=== PATIENT | female | born 1945 | race Caucasian/White ===

== ENCOUNTER 2016-10-17 18:28 | Inpatient (IN) ==
[2016-10-17] MEDS ORDERED: 0.9 % Sodium Chloride 1,000 ML IVC ONE (19:07)
--- NOTE | 2016-10-17 19:12 | Emergency Department Note ---
Disposition Clinical Impression: Hypoxia Pneumonia Qualifiers: Pneumonia type: due to unspecified organism Laterality: right Lung location: lower lobe of lung Qualified Code(s): J18.9 - Pneumonia, unspecified organism Cancer of right lung Qualifiers: Lung location: hilum of lung Qualified Code(s): C34.01 - Malignant neoplasm of right main bronchus Disposition: Admitted As Inpatient Condition: Good Referrals: Melida Santos CNP [Primary Care Provider] - Forms: ED Satisfaction Letter URI/Sore Throat HPI - General Chief Complaint: ED Nausea/Vomiting/Diarrhea Stated Complaint: nausea/ fever Time Seen by Provider: 10/17/16 18:30 Source: patient, EMS Mode of arrival: EMS Limitations: no limitations Nursing Notes Reviewed: Yes Vital Signs Reviewed: Yes - History of Present Illness HPI Narrative: 71-year-old female presents to the emergency department for evaluation of fever and nausea. Patient states she developed head congestion and cough last night and is developed fever this morning. Today she has been nauseated throughout the day. She has not been eating or drinking well. She has some mild discomfort in her lower chest area. She has a known history of coronary artery disease but states this does not feel like a heart pain. She has been coughing but has not expectorated sputum and instead has swallowed it. She states she feels short of breath. She denies any diarrhea. He denies any abdominal pain. - Related Data Home Medications Medication Instructions Recorded Confirmed BuPROPion XL (24 HR) [Wellbutrin 150 mg PO DAILY 06/14/15 08/25/16 Xl] Cholecalciferol (Vitamin D3) 50,000 unit PO QWEEK 06/14/15 08/25/16 [Vitamin D3] Fenofibrate [Tricor] 48 mg PO HS 06/14/15 08/25/16 Fluticasone Propionate [Flovent 12 gm IH BID PRN 06/14/15 08/25/16 Hfa] Ranolazine [Ranexa] 1,000 mg PO BID 06/14/15 08/25/16 Trazodone HCl [Oleptro ER] 100 mg PO BID 06/14/15 08/25/16 Zolpidem Tartrate [Ambien Cr] 12.5 mg PO HS PRN 06/14/15 08/25/16 Aspirin Enteric Coated [Aspirin EC] 81 mg PO DAILY 08/01/15 08/25/16 Alprazolam [Xanax] 1 mg PO QID PRN 03/21/16 08/25/16 Doxepin [Sinequan] 50 mg PO HS 03/21/16 08/25/16 Insulin Glargine [Lantus] 90 unit SQ HS 03/21/16 08/25/16 Insulin LISPRO [HumaLOG] 0 units SQ TIDWM 03/21/16 08/25/16 Montelukast [Singulair] 10 mg PO HS 03/21/16 08/25/16 Ondansetron ODT [Zofran ODT] 4 mg SL Q8HR PRN 03/21/16 08/25/16 Polyethylene Glycol 3350 [MiraLAX] 17 gm PO DAILY PRN 03/21/16 08/25/16 Ranitidine Oral Soln [Zantac] 150 mg PO DAILY 03/21/16 08/25/16 Tizanidine HCl 4 mg PO HS PRN 03/21/16 08/25/16 TraMADol [Ultram] 50 mg PO QID PRN 03/21/16 08/25/16 Zolpidem Tartrate 12.5 mg SL HS 03/21/16 08/25/16 Previous Rx's Medication Instructions Recorded Acetaminophen [Tylenol] 650 mg PO Q6HR PRN #0 tablet 01/05/16 Folic Acid 1 tab PO DAILY #30 tablet 02/05/16 Clopidogrel [Plavix] 75 mg PO DAILY tablet 03/21/16 GuaiFENesin ER [Mucinex] 1,200 mg PO BID PRN #30 tbbp.12hr 03/21/16 Oxycodone HCl/Acetaminophen 1 each PO Q8H PRN #60 tablet 08/25/16 [Percocet 10-325 mg Tablet] Allergies Allergy/AdvReac Type Severity Reaction Status Date / Time Iodinated Contrast Media - Allergy Rash Verified 08/09/16 00:58 Oral and iron Allergy Hives Verified 08/09/16 00:58 [place] Allergy Nausea Verified 08/09/16 00:58 Sulfa (Sulfonamide Allergy Hives Verified 08/09/16 00:58 Antibiotics) Review of Systems: Constitutional: see history of present illness HENT: Positive for congestion Eyes: [Negative for discharge.] Respiratory: Positive for productive cough and shortness of breath Cardiovascular: The history of present illness Gastrointestinal: Positive for nausea and negative for vomiting, diarrhea, or abdominal pain Endocrine: [Negative for excessive thirst,urination] Genitourinary: [Negative for dysuria and frequency.] Musculoskeletal: [Negative for myalgias and arthralgias.] Skin: [Negative for rash.] Neurological: [Negative for dizziness, localized weakness and headaches.] Psychiatric/Behavioral: [Negative for nervous/anxious.] All other systems reviewed and are negative. URI PMH - Past Medical History Medical history: Reports: asthma, cancer, CHF, coronary artery disease, diabetes , GERD, hyperlipidemia, hypertension, myocardial infarction, osteoporosis, renal disease, syncope, other Surgical history: Reports: angioplasty/stent, appendectomy, cancer surgery, cholecystectomy, hysterectomy, orthopedic, other Psychiatric history: Reports: anxiety, bipolar, depression [employer]OR history: Reports: no [employer]OR history - Social History Smoking Status: Former smoker Alcohol use: Reports: none Drug use: Reports: none Physical Exam Constitutional: Patient is alert, obese, [well nourished, well developed], and cooperative. . The patient appears , nontoxic, and appears mildly ill. There is mild pain. HENT: Head: Normocephalic and atraumatic. Right Ear: External ear normal. Left Ear: External ear normal. Nose: Nose normal. Mouth/Throat: Oropharynx is clear and mucous membranes show mild dehydration Eyes: Conjunctivae and EOM are normal. Pupils are equal, round, and reactive to light. Right eye exhibits no discharge. Left eye exhibits no discharge. Neck: Trachea is midline, normal range of motion and phonation normal. Neck supple. Cardiovascular: Regular rhythm, S1 normal, S2 normal, normal heart sounds and intact distal pulses. Exam reveals no gallop and no friction rub. No murmur heard. Pulmonary/Chest: Effort [normal] No stridor. [No] tachypnea. [No] respiratory distress. There are decreased breath sounds. There are a few rhonchi but no wheezes or rales Abdominal: Soft. Bowel sounds are normal. There exhibits no distension and no mass. There is no hepatosplenomegaly. There is mild epigastric tenderness, [no] CVA tenderness. There is no rigidity, no rebound, no guarding. Musculoskeletal: Normal range of motion of uninvolved extremities. There exhibits [no] edema. [No tenderness palpable.] [ ] Neurological: Patient is alert. Patient displays no atrophy and no tremor. No cranial nerve deficit and exhibits normal muscle tone. Coordination normal. Skin: Skin is warm and dry. No rash noted. No erythema. Psychiatric: Patient has a normal mood,affect, behavior, judgment, and thought content. Course Course Narrative: Patient's laboratory studies show evidence of a mild infection. Chest x-ray shows evidence of right lower lobe pneumonia. Patient is requiring some oxygen to keep her pulse ox above 90%. Patient has a mild right lower lobe pneumonia and I feel we can treat at the [place]. I have wrote initial orders at the convenience of the hospitalist and notify the hospitalist Vital Signs Temperature 100.1 F H 10/17/16 18:30 Pulse Rate 133 10/17/16 18:30 Respiratory Rate 20 10/17/16 18:30 Blood Pressure 113/57 10/17/16 18:30 O2 Sat by Pulse Oximetry 90 L 10/17/16 18:30 Temperature 100.1 F H 10/17/16 18:30 Pulse Rate 105 10/17/16 21:23 Respiratory Rate 14 10/17/16 21:23 Blood Pressure 102/32 10/17/16 21:23 O2 Sat by Pulse Oximetry 98 10/17/16 21:23 Oxygen Delivery Oxygen Delivery Nasal Cannula Upper Respiratory Infection - Lab Data Lab results reviewed: Yes I reviewed the patient's lab results. Result diagrams: 10/17/16 19:55 10/17/16 19:55 Lab Results 10/17/16 10/17/16 10/17/16 Range/Units 19:30 19:55 19:55 WBC 15.0 H (4.3-11.1) K/mcL RBC 4.83 (3.82-4.97) M/mcL Hgb 13.6 (11.5-15.4) g/dL Hct 41.5 (35.3-44.9) % MCV 85.9 (83.0-100.0) fL MCH 28.2 (28.0-33.3) pg MCHC 32.8 (31.6-35.5) g/dL RDW 13.2 (11.5-14.5) % Plt Count 253 (140-400) K/mcL MPV 10.1 (9.4-12.4) fL Immature Gran % 0.3 (0-4) % Seg Neutrophils % 85.2 % Lymphocytes % 8.8 % Monocytes % 5.2 % Eosinophils % 0.4 % Basophils % 0.1 % Neutrophils # 12.8 H (1.6-8.9) K/mcL Lymphocytes # 1.3 (0.6-4.6) K/mcL Monocytes # 0.8 (0.0-1.3) K/mcL Eosinophils # 0.1 (0.0-0.6) K/mcL Basophils # 0.0 (0.0-0.2) K/mcL VBG Lactic Acid (0.5-2.2) mmol/L Sodium 137 (136-145) mEq/L Potassium 4.5 (3.5-4.5) mEq/L Chloride 104 (98-109) mEq/L Carbon Dioxide 22 (19-29) mEq/L BUN 12 (7-20) mg/dL Creatinine 1.45 H (0.57-1.11) mg/dL Est GFR ( Amer) 43 L (> 60) Est GFR (Non-Af Amer) 36 L (> 60) BUN/Creatinine Ratio 8 (6-26) Glucose 245 H (70-99) mg/dL Calculated Osmolality 292 (280-300) Calcium 10.0 (8.6-10.8) mg/dL Total Bilirubin 0.4 (0.2-1.2) mg/dL Direct Bilirubin 0.2 (0.0-0.5) mg/dL Indirect Bilirubin 0.2 (0.0-1.2) mg/dL AST 21 (5-34) Units/L ALT 22 (0-55) Units/L Alkaline Phosphatase 49 (38-126) Units/L Serum Total Protein 6.7 (6.0-8.3) g/dL Albumin 3.3 L (3.5-5.0) g/dL Globulin 3.4 (2.4-3.5) g/dL Albumin/Globulin Ratio 1.0 L (1.1-2.2) Urine Color Yellow (Yellow) Urine Clarity Clear (Clear) Urine pH 5.5 (5.0-8.0) pH Units Ur Specific [place] 1.025 (1.010-1.025) Urine Protein 30 H (Neg-Trace) mg/dL Urine Glucose (UA) 500 H (Normal) mg/dL Urine Ketones Negative (Negative) mg/dL Urine Blood Negative (Negative) Urine Nitrite Negative (Negative) Urine Bilirubin Small H (Negative) Urine Urobilinogen Normal (Normal) mg/dL Ur Leukocyte Esterase Negative (Negative) Urine Microscopic RBC 0-3 (0-3) per hpf Urine Microscopic WBC 3-5 H (0-3) per hpf Ur Squamous Epith Cells Few (None-Few) per lpf Urine Bacteria Few (None-Few) per hpf Ur Culture Indicated? NO (NO) 10/17/16 Range/Units 20:25 WBC (4.3-11.1) K/mcL RBC (3.82-4.97) M/mcL Hgb (11.5-15.4) g/dL Hct (35.3-44.9) % MCV (83.0-100.0) fL MCH (28.0-33.3) pg MCHC (31.6-35.5) g/dL RDW (11.5-14.5) % Plt Count (140-400) K/mcL MPV (9.4-12.4) fL Immature Gran % (0-4) % Seg Neutrophils % % Lymphocytes % % Monocytes % % Eosinophils % % Basophils % % Neutrophils # (1.6-8.9) K/mcL Lymphocytes # (0.6-4.6) K/mcL Monocytes # (0.0-1.3) K/mcL Eosinophils # (0.0-0.6) K/mcL Basophils # (0.0-0.2) K/mcL VBG Lactic Acid 2.9 H (0.5-2.2) mmol/L Sodium (136-145) mEq/L Potassium (3.5-4.5) mEq/L Chloride (98-109) mEq/L Carbon Dioxide (19-29) mEq/L BUN (7-20) mg/dL Creatinine (0.57-1.11) mg/dL Est GFR ( Amer) (> 60) Est GFR (Non-Af Amer) (> 60) BUN/Creatinine Ratio (6-26) Glucose (70-99) mg/dL Calculated Osmolality (280-300) Calcium (8.6-10.8) mg/dL Total Bilirubin (0.2-1.2) mg/dL Direct Bilirubin (0.0-0.5) mg/dL Indirect Bilirubin (0.0-1.2) mg/dL AST (5-34) Units/L ALT (0-55) Units/L Alkaline Phosphatase (38-126) Units/L Serum Total Protein (6.0-8.3) g/dL Albumin (3.5-5.0) g/dL Globulin (2.4-3.5) g/dL Albumin/Globulin Ratio (1.1-2.2) Urine Color (Yellow) Urine Clarity (Clear) Urine pH (5.0-8.0) pH Units Ur Specific [place] (1.010-1.025) Urine Protein (Neg-Trace) mg/dL Urine Glucose (UA) (Normal) mg/dL Urine Ketones (Negative) mg/dL Urine Blood (Negative) Urine Nitrite (Negative) Urine Bilirubin (Negative) Urine Urobilinogen (Normal) mg/dL Ur Leukocyte Esterase (Negative) Urine Microscopic RBC (0-3) per hpf Urine Microscopic WBC (0-3) per hpf Ur Squamous Epith Cells (None-Few) per lpf Urine Bacteria (None-Few) per hpf Ur Culture Indicated? (NO) - Radiology Data Radiology results reviewed: Yes I reviewed the patient's radiology results. I have contemporaneously read the radiology report from the radiologist which has the following findings: Chest x-ray IMPRESSION: Right perihilar mass-like opacity is again noted. Increased hazy opacity in the right base, developing atelectasis versus (postobstructive) pneumonia.
[2016-10-17 20:13] LABS: Basophils % 0.1 %; Eosinophils # 0.1 K/mcL (0.0-0.6); Eosinophils % 0.4 %; Hematocrit 41.5 % (35.3-44.9); Hemoglobin 13.6 g/dL (11.5-15.4); Immature Granulocytes % 0.3 % (0-4); Lymphocytes # 1.3 K/mcL (0.6-4.6); Lymphocytes % 8.8 %; Mean Corpuscular HGB Conc 32.8 g/dL (31.6-35.5); Mean Corpuscular Hemoglobin 28.2 pg (28.0-33.3); Mean Corpuscular Volume 85.9 fL (83.0-100.0); Mean Platelet Volume 10.1 fL (9.4-12.4); Monocytes # 0.8 K/mcL (0.0-1.3); Monocytes % 5.2 %; Platelet Count 253 K/mcL (140-400); Red Blood Count 4.83 M/mcL (3.82-4.97); Red Cell Distribution Width 13.2 % (11.5-14.5); Segmented Neutrophils % 85.2 %
[2016-10-17 20:13] LABS: Bilirubin,Urine Small (Negative); Blood,Urine Negative (Negative); Clarity,Urine Clear (Clear); Color,Urine Yellow (Yellow); Glucose,Urine (UA) 500 mg/dL (Normal); Ketones,Urine Negative (Negative); Leukocyte Esterase,Urine Negative (Negative); Nitrite,Urine Negative (Negative); PH,Urine 5.5 pH Units (5.0-8.0); Protein,Urine 30 mg/dL (Neg-Trace); Specific Gravity,Urine 1.025 (1.010-1.025); Urobilinogen,Urine Normal (Normal)
[2016-10-17 20:17] LABS: Neutrophils # 12.8 K/mcL (1.6-8.9)
[2016-10-17 20:30] LABS: Albumin 3.3 g/dL (3.5-5.0); Bilirubin,Direct 0.2 mg/dL (0.0-0.5); Bilirubin,Indirect 0.2 mg/dL (0.0-1.2); Bilirubin,Total 0.4 mg/dL (0.2-1.2); Globulin 3.4 g/dL (2.4-3.5); Potassium 4.5 mEq/L (3.5-4.5); Total Protein 6.7 g/dL (6.0-8.3)
[2016-10-17 20:32] LABS: Bacteria,Urine Few per hpf (None-Few); RBC,Urine 0-3 per hpf (0-3); Squamous Epithelial Cell,Urine Few per lpf (None-Few)
[2016-10-17] MEDS ORDERED: Ondansetron 4 MG/2 ML VIAL IVP PRN (21:45)
[2016-10-17] MEDS ORDERED: Acetaminophen 325 MG TABLET PO PRN (21:45)
[2016-10-17] MEDS ORDERED: Naloxone 0.4 MG/ML INJ IVP PRN (21:45)
[2016-10-17] MEDS ORDERED: Insulin DETEMIR 100 UNIT/ML per UNIT SQ SCH (22:30)
[2016-10-18] MEDS: 0.9 % Sodium Chloride 1,000 ML IVC SCH ×2 (00:13→08:17)
[2016-10-18] MEDS: Levofloxacin 500 MG/100 ML 500 MG/100 ML BAG IVPB SCH ×2 (00:14→10:08)
[2016-10-18] MEDS: Albuterol 2.5 MG/3 ML NEBULIZER IH SCH ×3 (00:14→10:17)
[2016-10-18] MEDS: *HR* OxyCODONE Immed Rel 5 MG TABLET PO PRN ×3 (00:15→12:35)
[2016-10-18] MEDS: Ipratropium/Albuterol Neb 3 ML IH SCH ×3 (00:26→10:08)
[2016-10-18 05:54] LABS: Basophils % 0.3 %; Eosinophils # 0.2 K/mcL (0.0-0.6); Eosinophils % 1.4 %; Hemoglobin 11.8 g/dL (11.5-15.4); Immature Granulocytes % 0.2 % (0-4); Lymphocytes # 2.9 K/mcL (0.6-4.6); Lymphocytes % 22.6 %; Mean Corpuscular HGB Conc 31.9 g/dL (31.6-35.5); Mean Corpuscular Hemoglobin 28.3 pg (28.0-33.3); Mean Corpuscular Volume 88.7 fL (83.0-100.0); Mean Platelet Volume 10.4 fL (9.4-12.4); Monocytes # 1.1 K/mcL (0.0-1.3); Monocytes % 8.3 %; Neutrophils # 8.5 K/mcL (1.6-8.9); Platelet Count 245 K/mcL (140-400); Red Blood Count 4.17 M/mcL (3.82-4.97); Red Cell Distribution Width 13.6 % (11.5-14.5); Segmented Neutrophils % 67.2 %
[2016-10-18] MEDS ORDERED: *HR* Enoxaparin 30 MG/0.3 ML SYRINGE SQ SCH (06:00)
[2016-10-18] MEDS ORDERED: Aspirin Enteric Coated 81 MG Tablet PO SCH (09:00)
[2016-10-18] MEDS ORDERED: Famotidine 20 MG TABLET PO SCH (09:00)
[2016-10-18] MEDS ORDERED: Ranolazine 500 MG TAB.ER.12H PO SCH (09:00)
[2016-10-18] MEDS ORDERED: BuPROPion XL (24 HR) 150 MG TABLET PO SCH (09:00)
[2016-10-18] MEDS ORDERED: Folic Acid 1 MG TABLET PO SCH (09:00)
--- NOTE | 2016-10-18 11:42 | Internal Med History&Physical ---
Date of Encounter: 10/18/16 Time of Encounter: 11:40 Assessment and Plan (1) COPD (chronic obstructive pulmonary disease) Current visit: Yes Status: Acute Qualifiers: COPD type: COPD with acute exacerbation Qualified Code(s): J44.1 - Chronic obstructive pulmonary disease with (acute) exacerbation Internal Medicine - H&P: HPI Admitted From: Emergency Dept Plans for Post Hospital Care: Home History of present illness: Ms. Richards is a 71 year old female presents to the emergency department for evaluation of fever and nausea. Patient states she developed head congestion and cough last night and is developed fever this morning. Today she has been nauseated throughout the day. She has not been eating or drinking well. She has some mild discomfort in her lower chest area. She has a known history of coronary artery disease but states this does not feel like a heart pain. She has been coughing but has not expectorated sputum and instead has swallowed it She was admitted for IV antibiotics, pulmonary treatment and steroids. Throughout her entire stay she continues to improve. This morning she states that she feels much better and wants to go home. She has old pulmonary treatment at home. She has home O2. She will be sent home on oral antibiotics. Past Med Surg Social Fam HX - Past Medical History Medical history: asthma, cancer, CHF, coronary artery disease, diabetes, fibromyalgia, GERD, hyperlipidemia, hypertension, myocardial infarction, osteoporosis, renal disease, syncope, other Psychiatric history: anxiety, bipolar, depression - Past Surgical History Surgical History: angioplasty/stent, appendectomy, cancer surgery, cholecystectomy, hysterectomy, orthopedic, other - Social History Smoking Status: Former smoker Smokeless Tobacco Status: No Alcohol use: none Drug use: none - Family History Mother Living Status: Sister Living Status: Hx Family Respiratory Disorders: Yes (Lung cancer) Brother Adopted: [place]: Noé Kowalski Age: 66 Family Member Ethnicity: Non- Living Status: Still Living Hx Family Cardiac Disorders: Yes Hx Family Respiratory Disorders: Yes Hx Family Cancer: Yes Hx Family GI Disorders: No Hx Family Genitourinary Disorders: No Hx Family Endocrine Disorder: No Hx Family Musculoskeletal Disorders: No Hx Family Neuromuscular Disorders: No Hx Family Neurologic Disorders: No Hx Family HEENT Disorders: No Hx Family Autoimmune Disorders: No Hx Family Reproductive Disorders: No Hx Family Psychosocial Disorders: No Hx Family Medical Disorders: No Father Living Status: Hx Family Cardiac Disorders: Yes Internal Medicine - H&P: Meds BuPROPion XL (24 HR) [Wellbutrin Xl] 150 mg PO DAILY 06/14/15 [History] Cholecalciferol (Vitamin D3) [Vitamin D3] 50,000 unit PO QWEEK 06/14/15 [History ] Fenofibrate [Tricor] 48 mg PO HS 06/14/15 [History] Fluticasone Propionate [Flovent Hfa] 12 gm IH BID PRN 06/14/15 [History] Ranolazine [Ranexa] 1,000 mg PO BID 06/14/15 [History] Trazodone HCl [Oleptro ER] 100 mg PO BID 06/14/15 [History] Zolpidem Tartrate [Ambien Cr] 12.5 mg PO HS PRN 06/14/15 [History] Aspirin Enteric Coated [Aspirin EC] 81 mg PO DAILY 08/01/15 [History] Acetaminophen [Tylenol] 650 mg PO Q6HR PRN #0 tablet 01/05/16 [Rx] Folic Acid 1 tab PO DAILY #30 tablet 02/05/16 [Rx] Alprazolam [Xanax] 1 mg PO QID PRN 03/21/16 [History] Clopidogrel [Plavix] 75 mg PO DAILY tablet 03/21/16 [Rx] Doxepin [Sinequan] 50 mg PO HS 03/21/16 [History] GuaiFENesin ER [Mucinex] 1,200 mg PO BID PRN #30 tbbp.12hr 03/21/16 [Rx] Insulin Glargine [Lantus] 90 unit SQ HS 03/21/16 [History] Insulin LISPRO [HumaLOG] 0 units SQ TIDWM 03/21/16 [History] Montelukast [Singulair] 10 mg PO HS 03/21/16 [History] Ondansetron ODT [Zofran ODT] 4 mg SL Q8HR PRN 03/21/16 [History] Polyethylene Glycol 3350 [MiraLAX] 17 gm PO DAILY PRN 03/21/16 [History] Ranitidine Oral Soln [Zantac] 150 mg PO DAILY 03/21/16 [History] Tizanidine HCl 4 mg PO HS PRN 03/21/16 [History] TraMADol [Ultram] 50 mg PO QID PRN 03/21/16 [History] Zolpidem Tartrate 12.5 mg SL HS 03/21/16 [History] Oxycodone HCl/Acetaminophen [Percocet 10-325 mg Tablet] 1 each PO Q8H PRN #60 tablet 08/25/16 [Rx] Allergies Iodinated Contrast Media - Oral and Allergy (Verified 08/09/16 00:58) Rash WELL SWELLING. iron Allergy (Verified 08/09/16 00:58) Hives [place] Allergy (Verified 08/09/16 00:58) Nausea Sulfa (Sulfonamide Antibiotics) Allergy (Verified 08/09/16 00:58) Hives All Systems PM: A 10-system review of systems was performed and is negative for pertinent findings except as documented above in the HPI. - Constitutional Constitutional: no chills, no fever(s), no night sweats - EENT Eyes: no change in vision, no discharge, no pain, no photophobia - Cardiovascular Cardiovascular ROS IM: no chest pain, no diaphoresis, no dyspnea, no lightheadedness, no palpitations, no syncope - Respiratory Respiratory: no cough, no dyspnea, no wheezing, no excessive phlegm production - Gastrointestinal Gastrointestinal: no abdominal pain, no diarrhea, no hematemesis, no hematochezia, no melena, no nausea, no vomiting - Musculoskeletal Musculoskeletal ROS IM: no numbness, no tingling - Integumentary Integumentary IM: no rash, no unusual bruising - Constitutional Vitals: Temp Pulse Resp BP Pulse Ox 98.4 F 85 18 106/60 97 10/18/16 07:51 10/18/16 07:51 10/18/16 07:51 10/18/16 07:51 10/18/16 07:51 General appearance: Present: A&O X 3, pleasant, no acute distress - Respiratory Respiratory exam: Present: CTAB. Absent: accessory muscle use, rales, rhonchi, wheezes - Cardiovascular Cardiovascular exam: Present: RRR, +S1, +S2. Absent: diastolic murmur, gallop, rubs, systolic murmur - GI/Abdominal GI/Abdominal exam: Present: normal bowel sounds, soft, no peritoneal signs. Absent: distended, tenderness - Extremities Exam Extremities exam: Present: warm, radial pulses palpable and symetrical. Absent : calf tenderness, cyanotic, pedal edema - Neurological Exam Neurological exam: Present: CN II-XII intact, oriented X3, no focal deficits. Absent: pronater drift, facial droop, speech deficit - Skin Skin exam: Present: dry, intact Internal Med - H&P Results - Labs CBC & Chem 7: 10/18/16 04:50 10/17/16 19:55 Labs: Short CBC 10/18/16 Range/Units 04:50 WBC 12.6 H (4.3-11.1) K/mcL Hgb 11.8 D (11.5-15.4) g/dL Hct 37.0 (35.3-44.9) % Plt Count 245 (140-400) K/mcL Neutrophils # 8.5 (1.6-8.9) K/mcL
--- NOTE | 2016-10-18 11:46 | Discharge Summary ---
Date of Encounter: 10/18/16 Time of Encounter: 11:43 - Discharge Diagnosis (1) COPD (chronic obstructive pulmonary disease) Priority: Primary Status: Acute Qualifiers: COPD type: COPD with acute exacerbation Qualified Code(s): J44.1 - Chronic obstructive pulmonary disease with (acute) exacerbation - Discharge Medications Home Medications: BuPROPion XL (24 HR) [Wellbutrin Xl] 150 mg PO DAILY 06/14/15 [History] Cholecalciferol (Vitamin D3) [Vitamin D3] 50,000 unit PO QWEEK 06/14/15 [History ] Fenofibrate [Tricor] 48 mg PO HS 06/14/15 [History] Fluticasone Propionate [Flovent Hfa] 12 gm IH BID PRN 06/14/15 [History] Ranolazine [Ranexa] 1,000 mg PO BID 06/14/15 [History] Trazodone HCl [Oleptro ER] 100 mg PO BID 06/14/15 [History] Zolpidem Tartrate [Ambien Cr] 12.5 mg PO HS PRN 06/14/15 [History] Aspirin Enteric Coated [Aspirin EC] 81 mg PO DAILY 08/01/15 [History] Acetaminophen [Tylenol] 650 mg PO Q6HR PRN #0 tablet 01/05/16 [Rx] Folic Acid 1 tab PO DAILY #30 tablet 02/05/16 [Rx] Alprazolam [Xanax] 1 mg PO QID PRN 03/21/16 [History] Clopidogrel [Plavix] 75 mg PO DAILY tablet 03/21/16 [Rx] Doxepin [Sinequan] 50 mg PO HS 03/21/16 [History] GuaiFENesin ER [Mucinex] 1,200 mg PO BID PRN #30 tbbp.12hr 03/21/16 [Rx] Insulin Glargine [Lantus] 90 unit SQ HS 03/21/16 [History] Insulin LISPRO [HumaLOG] 0 units SQ TIDWM 03/21/16 [History] Montelukast [Singulair] 10 mg PO HS 03/21/16 [History] Ondansetron ODT [Zofran ODT] 4 mg SL Q8HR PRN 03/21/16 [History] Polyethylene Glycol 3350 [MiraLAX] 17 gm PO DAILY PRN 03/21/16 [History] Ranitidine Oral Soln [Zantac] 150 mg PO DAILY 03/21/16 [History] Tizanidine HCl 4 mg PO HS PRN 03/21/16 [History] TraMADol [Ultram] 50 mg PO QID PRN 03/21/16 [History] Zolpidem Tartrate 12.5 mg SL HS 03/21/16 [History] Oxycodone HCl/Acetaminophen [Percocet 10-325 mg Tablet] 1 each PO Q8H PRN #60 tablet 08/25/16 [Rx] Levofloxacin [Levaquin] 500 mg PO DAILY #10 tablet 10/18/16 [Rx] Allergies/Adverse Reactions: Allergies Iodinated Contrast Media - Oral and Allergy (Verified 08/09/16 00:58) Rash WELL SWELLING. iron Allergy (Verified 08/09/16 00:58) Hives [place] Allergy (Verified 08/09/16 00:58) Nausea Sulfa (Sulfonamide Antibiotics) Allergy (Verified 08/09/16 00:58) Hives Date of admission: 10/17/16 22:35 Primary care physician: Melida Santos CNP Discharging clinician: [place] Anticipated date of discharge: 10/18/16 - Patient Status Disposition: Home, Self-Care Condition: Good Functional capacity at discharge: independent ambulation Overall status at discharge: patient is back to baseline - Discharge Instructions Instructions: Chronic Obstructive Pulmonary Disease (DC) Follow Up With: Melida Santos CNP [Primary Care Provider] - - Diet and Activity Activity: increase activity as tolerated Hospital course: Ms. Richards is a 71 year old female - Time Spent with Patient Total time spent providing and/or coordinating discharge services: - Constitutional Vitals: Temp Pulse Resp BP Pulse Ox 98.4 F 85 18 106/60 97 10/18/16 07:51 10/18/16 07:51 10/18/16 07:51 10/18/16 07:51 10/18/16 07:51 General appearance: Present: A&O X 3, pleasant, no acute distress
[2016-10-18 12:08] VITALS: BP 143/72
[2016-10-18] MEDS ORDERED: Insulin DETEMIR 100 UNIT/ML per UNIT SQ SCH (21:00)
[2016-10-18] MEDS ORDERED: Fenofibrate 54 MG TABLET PO SCH (21:00)
[2016-10-18] MEDS ORDERED: NON-FORMULARY MEDICATION 1 EACH EACH (Insulin Glargine [Lantus] 90 UNIT) SQ SCH (21:00)
== END 2016-10-18 13:00 | disposition home or self-care (01) | DRG 190 ==
LOC: EMEROOGRE 18:28 → INPGRE 22:35
PROVIDERS: ADMIT Internal Medicine; ATTEND Internal Medicine

== ENCOUNTER 2017-09-21 16:06 | Inpatient (IN) ==
[2017-09-22] MEDS ORDERED: *HR* Dextrose 50 % in Water (Syg) 50 ML SYRINGE IVP PRN (16:41)
[2017-09-22] MEDS ORDERED: Dextrose Gel 15 GM PO PRN ×2 (16:41)
[2017-09-22] MEDS ORDERED: D5% in Water 1,000 ML IVC PRN (16:41)
[2017-09-22] MEDS: Cholecalciferol (D-3) 1,000 UNIT TABLET PO SCH (17:30)
[2017-09-22] MEDS ORDERED: Insulin DETEMIR 100 UNIT/ML per UNIT SQ ONE (21:00)
[2017-09-22] MEDS: Ranolazine 500 MG TAB.ER.12H PO SCH (21:11)
[2017-09-22] MEDS: Gabapentin 400 MG CAPSULE PO SCH (21:11)
[2017-09-22] MEDS: Fenofibrate 54 MG TABLET PO SCH (21:12)
[2017-09-22] MEDS: traZODone 50 MG TABLET PO SCH (21:14)
[2017-09-23] MEDS: *HR* Enoxaparin 40 MG/0.4 ML SYRINGE SQ SCH (04:38)
[2017-09-23 05:23] LABS: Basophils % 0.4 %; Eosinophils # 0.2 K/mcL (0.0-0.6); Eosinophils % 3.8 %; Hematocrit 34.4 % (35.3-44.9); Hemoglobin 11.2 g/dL (11.5-15.4); Immature Granulocytes % 0.2 % (0-4); Lymphocytes % 21.9 %; Mean Corpuscular HGB Conc 32.6 g/dL (31.6-35.5); Mean Corpuscular Hemoglobin 28.4 pg (28.0-33.3); Mean Corpuscular Volume 87.1 fL (83.0-100.0); Mean Platelet Volume 10.3 fL (9.4-12.4); Monocytes # 0.3 K/mcL (0.0-1.3); Monocytes % 6.7 %; Platelet Count 222 K/mcL (140-400); Red Blood Count 3.95 M/mcL (3.82-4.97); Red Cell Distribution Width 13.5 % (11.5-14.5)
[2017-09-23 05:27] LABS: INR 1.1; Prothrombin Time 11.7 Seconds (9.4-12.1)
[2017-09-23 05:29] LABS: Activated Partial Thrombo Time 30.9 Seconds (26.0-36.0)
[2017-09-23 05:35] LABS: Calcium 10.2 mg/dL (8.6-10.8); Potassium 5.1 mEq/L (3.5-4.5)
[2017-09-23] MEDS: (Liraglutide [Victoza 2-Pak] 1.2 MG) SQ SCH (08:04)
[2017-09-23] MEDS: Cholecalciferol (D-3) 1,000 UNIT TABLET PO SCH (08:04)
[2017-09-23] MEDS: Insulin LISPRO 300 UNITS/3 ML VIAL SQ SCH ×3 (08:04→16:40)
[2017-09-23] MEDS: Famotidine 20 MG TABLET PO SCH (08:23)
[2017-09-23] MEDS: BuPROPion SR (12 HR) 100 MG TABLET PO SCH (08:23)
[2017-09-23] MEDS: Ranolazine 500 MG TAB.ER.12H PO SCH ×2 (08:23→21:40)
[2017-09-23] MEDS: Gabapentin 400 MG CAPSULE PO SCH ×3 (08:23→21:46)
--- NOTE | 2017-09-23 10:42 | Internal Med History&Physical ---
Date of Encounter: 09/24/17 Time of Encounter: 10:41 Assessment and Plan (1) Weakness Current visit: No Status: Acute PT/OT, will follow progress. fall precautions (2) CKD (chronic kidney disease) stage 3, GFR 30-59 ml/min Current visit: No Status: Chronic renal function at baseline. monitor labs. (3) Essential hypertension Current visit: No Status: Chronic continue metoprolol and lisinopril. monitor BP (4) Hyperlipidemia Current visit: No Status: Chronic conitnue Tricor Qualifiers: Hyperlipidemia type: mixed hyperlipidemia Qualified Code(s): E78.2 - Mixed hyperlipidemia (5) Diastolic CHF Current visit: No Status: Chronic monitor for decompensation Qualifiers: Congestive heart failure chronicity: chronic Qualified Code(s): I50.32 - Chronic diastolic (congestive) heart failure (6) Type 2 diabetes mellitus Current visit: No Status: Chronic continue insulin and monitor FSBS. will adjust meds as necessary. Qualifiers: Diabetes mellitus complication status: with neurologic complications Diabetes mellitus complication detail: with polyneuropathy Diabetes mellitus jail insulin use: with jail use Qualified Code(s): E11.42 - Type 2 diabetes mellitus with diabetic polyneuropathy; Z79.4 - USP (current) use of insulin; Z79.4 - USP (current) use of insulin; Z79.4 - exterminator helper ( current) use of insulin; Z79.4 - exterminator helper (current) use of insulin (7) CVA (cerebral vascular accident) Current visit: No Status: Acute PT and OT Qualifiers: CVA mechanism: embolism Precerebral and cerebral artery: cerebellar artery Laterality of affected vessel: bilateral Qualified Code(s): 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 Richards is a 72 year old female who presents to inpatient rehab for generalized weakness and deconditioning with recent falls. transfering from [facility]. was diagnosed with subacute infarct in right frontal lobe, right temporal lobe and bilat hemispheres in aug 2017. past medical history of CVA, asthma, fibromyalgia, CHF, CAD, DM, HLD, HTN, SC, osteoporosis, syncope and stg 3 renal disease. Presented to [facility] after multiple falls due to weakness and orthostatic BP. Past Med Surg Social Fam HX - Past Medical History Medical history: asthma, cancer, CHF, coronary artery disease, CVA, diabetes, fibromyalgia, GERD, hyperlipidemia, hypertension, myocardial infarction, osteoporosis, renal disease, syncope, other Psychiatric history: anxiety, bipolar, depression - Past Surgical History Surgical History: angioplasty/stent, appendectomy, cancer surgery, cholecystectomy, hysterectomy, orthopedic, other - Social History Smoking Status: Former smoker Smokeless Tobacco Status: No Alcohol use: none Drug use: none Current living situation: Home, With Family Activity Level: Wheelchair bound Recent Out of Country Travel Within the Last 8 Weeks: No Exposure or Possible Exposure to Illness During Travel: No - Family History Mother Living Status: Sister Living Status: Hx Family Cardiac Disorders: Yes Hx Family Respiratory Disorders: Yes (Lung cancer) Brother Adopted: No Family Member Ethnicity: Non- Living Status: Still Living Hx Family Cardiac Disorders: Yes Hx Family Respiratory Disorders: Yes Hx Family Cancer: Yes Hx Family GI Disorders: No Hx Family Endocrine Disorder: No Hx Family Neuromuscular Disorders: No Hx Family Neurologic Disorders: No Hx Family HEENT Disorders: No Hx Family Autoimmune Disorders: No Father Adopted: No Family Member Ethnicity: Non- Living Status: Hx Family Cardiac Disorders: Yes Hx Family Respiratory Disorders: No Hx Family Cancer: No Hx Family GI Disorders: No Hx Family Endocrine Disorder: No Hx Family Neuromuscular Disorders: No Hx Family Neurologic Disorders: No Hx Family HEENT Disorders: No Hx Family Autoimmune Disorders: No Internal Medicine - H&P: Meds Cholecalciferol (Vitamin D3) [Vitamin D3] 50,000 unit PO FR 06/14/15 [History] Fenofibrate [Tricor] 48 mg PO HS 06/14/15 [History] Ranolazine [Ranexa] 1,000 mg PO BID 06/14/15 [History] Doxepin [Sinequan] 50 mg PO HS 03/21/16 [History] Insulin Glargine [Lantus] 90 unit SQ HS 03/21/16 [History] Insulin LISPRO [HumaLOG] 30 - 50 units SQ TIDWM 03/21/16 [History] Gabapentin [Neurontin] 400 mg PO TID 07/24/17 [History] HydrOXYzine 10 mg PO BID 07/24/17 [History] Liraglutide [Victoza 2-Pavel] 1.2 mg SQ DAILY 07/24/17 [History] Ranitidine HCl [Zantac] 300 mg PO DAILY 07/24/17 [History] buPROPion HCl [Bupropion HCl Sr] 200 mg PO DAILY 07/24/17 [History] Trazodone HCl 300 mg PO HS 08/31/17 [History] Lisinopril [Zestril] 10 mg PO DAILY tablet 09/05/17 [Rx] Metoprolol [Lopressor] 50 mg PO BID tablet 09/05/17 [Rx] Dicyclomine [Bentyl] 10 mg PO QID 09/19/17 [History] 3 Allergy/AdvReac Type Severity Reaction Status Date / Time Iodinated Contrast- Oral and Allergy Rash Verified 02/19/17 23:16 IV Dye iron Allergy Hives Verified 02/19/17 23:16 [place] Allergy Nausea Verified 02/19/17 23:16 Sulfa (Sulfonamide Allergy Hives Verified 02/19/17 23:16 Antibiotics) All Systems PM: A 10-system review of systems was performed and is negative for pertinent findings except as documented above in the HPI. - Constitutional Constitutional: no chills, no fever(s), no night sweats - EENT Eyes: no change in vision, no discharge, no pain, no photophobia Ears: no ear discharge, no ear pain, no tinnitus Nose, mouth and throat: no dysphagia, no nasal discharge, no neck pain, no sore throat - Cardiovascular Cardiovascular ROS IM: chest pain, no diaphoresis, no dyspnea, no lightheadedness, no palpitations, no syncope - Respiratory Respiratory: no cough, no dyspnea, no wheezing, no excessive phlegm production - Gastrointestinal Gastrointestinal: no abdominal pain, no diarrhea, no hematemesis, no hematochezia, no melena, no nausea, no vomiting - Genitourinary Genitourinary: no change in urinary stream, no dysuria, no flank pain, no hematuria - Musculoskeletal Musculoskeletal ROS IM: numbness, no tingling Additional comments: report numbness, tingling and weakness with difficulty grasping objects in right hand - Integumentary Integumentary IM: no rash, no unusual bruising - Neurological Neurological ROS: no confusion, no convulsions, no focal weakness, no numbness, no tingling, no tremor(s) - Hematologic/Lymphatic Hematologic/Lymphatic: no easy bruising - Constitutional Vitals: Temp Pulse Resp BP Pulse Ox 98.4 F 69 17 132/63 94 09/23/17 06:55 09/23/17 06:55 09/23/17 06:55 09/23/17 06:55 09/23/17 06:55 General appearance: Present: A&O X 3, morbidly obese, answers questions appropriately - Head Head exam: Present: atraumatic, normal inspection, normocephalic - Eye Eye exam: Present: EOMI, normal appearance Pupils: Present: normal accommodation, PERRL - ENT ENT exam: Present: mucous membranes moist, normal exam - Neck Neck exam general surgery: Present: full ROM, normal inspection, supple - Respiratory Respiratory exam: Present: CTAB - Cardiovascular Cardiovascular exam: Present: RRR, +S1, +S2 Additional comments: no murmur - GI/Abdominal GI/Abdominal exam: Present: normal bowel sounds, soft - Extremities Exam Extremities exam: Present: full ROM, normal capillary refill, radial pulses palpable and symmetrical Additional comments: right hand weakness - Neurological Exam Neurological exam: Present: alert, oriented X3 Additional comments: unsteady gait, weakness to right UE and difficulty grasping obects with right hand - Psychiatric Psychiatric exam: Present: normal affect - Skin Skin exam: Present: intact, warm Internal Med - H&P Results - Labs CBC & Chem 7: 09/23/17 05:15 09/23/17 05:15 Labs: Short CBC 09/23/17 Range/Units 05:15 WBC 4.5 (4.3-11.1) K/mcL Hgb 11.2 L (11.5-15.4) g/dL Hct 34.4 L (35.3-44.9) % Plt Count 222 (140-400) K/mcL Neutrophils # 3.0 (1.6-8.9) K/mcL BMP 09/23/17 05:15 Sodium 137 Potassium 5.1 H Chloride 103 Carbon Dioxide 27 BUN 15 Creatinine 1.58 H Glucose 151 H Calcium 10.2
--- NOTE | 2017-09-23 12:55 | Psychological Evaluation ---
Date of Encounter: 09/23/17 Time of Encounter: 11:00 History of Present Illness History of present illness: Ms. Richards is a 72 year old female who presents for rehabilitation services following falls, sycope and CVA. Past Medical History Medical history: PMH includes cancer, diabees, kidney problems, CADk cancer and strokes. Psychiatric history includes depression for which the patient has been treated with therapy. Home Medications and Allergies Cholecalciferol (Vitamin D3) [Vitamin D3] 50,000 unit PO FR 06/14/15 [History] Fenofibrate [Tricor] 48 mg PO HS 06/14/15 [History] Ranolazine [Ranexa] 1,000 mg PO BID 06/14/15 [History] Doxepin [Sinequan] 50 mg PO HS 03/21/16 [History] Insulin Glargine [Lantus] 90 unit SQ HS 03/21/16 [History] Insulin LISPRO [HumaLOG] 30 - 50 units SQ TIDWM 03/21/16 [History] Gabapentin [Neurontin] 400 mg PO TID 07/24/17 [History] HydrOXYzine 10 mg PO BID 07/24/17 [History] Liraglutide [Victoza 2-Pavel] 1.2 mg SQ DAILY 07/24/17 [History] Ranitidine HCl [Zantac] 300 mg PO DAILY 07/24/17 [History] buPROPion HCl [Bupropion HCl Sr] 200 mg PO DAILY 07/24/17 [History] Trazodone HCl 300 mg PO HS 08/31/17 [History] Lisinopril [Zestril] 10 mg PO DAILY tablet 09/05/17 [Rx] Metoprolol [Lopressor] 50 mg PO BID tablet 09/05/17 [Rx] Dicyclomine [Bentyl] 10 mg PO QID 09/19/17 [History] 3 Allergy/AdvReac Type Severity Reaction Status Date / Time Iodinated Contrast- Oral and Allergy Rash Verified 02/19/17 23:16 IV Dye iron Allergy Hives Verified 02/19/17 23:16 [place] Allergy Nausea Verified 02/19/17 23:16 Sulfa (Sulfonamide Allergy Hives Verified 02/19/17 23:16 Antibiotics) Social History - Social History Social History: Mrs. Richards has been twice. She was in 1980 and in 1985. She has one son who is blind and who has lived with the patient since 1987. 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 She reports that she has been retired since 1981. The patient currently has an aide , 5 hours per day, 5 days per week. The patient would like additional time from the aide on weekends. Cognitive/Emotional Assessment - Emotional Status Additional Findings: Mrs. Richards was alert and oriented. She was able to provide a detailed chronological history of her recent medical issues and hospitalizations. However, there was some rapid forgetting and confusion. The patient reports being motivated to progress and recovery from her stroke. She indicated she is trying to "adapt" to the changes in her life. Assessment & Plan - Prognosis Prognosis: Fair (Mrs. Richards has been treated by a mental health professional online. However, treatment stopped in May, for unknown reasons. The patient reported that she did not find these sessions very helpful. Reportedly , the patient has a onsite case manager who could assist with securing another therapist.) Procedures - Modality Modality: Psychotherapy 60 minutes (Mrs. Richards will pursue additional treatment via her onsite case manager. In home therapy on a weekly basis is strongly suggested.)
[2017-09-23] MEDS: traZODone 50 MG TABLET PO SCH (21:41)
[2017-09-23] MEDS: Fenofibrate 54 MG TABLET PO SCH (21:42)
[2017-09-23] MEDS: Insulin DETEMIR 100 UNIT/ML X5UNITS SQ SCH (21:50)
[2017-09-24] MEDS: *HR* Enoxaparin 40 MG/0.4 ML SYRINGE SQ SCH (05:57)
[2017-09-24] MEDS: Ranolazine 500 MG TAB.ER.12H PO SCH ×2 (08:28→22:14)
[2017-09-24] MEDS: Cholecalciferol (D-3) 1,000 UNIT TABLET PO SCH (08:28)
[2017-09-24] MEDS: BuPROPion SR (12 HR) 100 MG TABLET PO SCH (08:28)
[2017-09-24] MEDS: Gabapentin 400 MG CAPSULE PO SCH ×3 (08:28→22:13)
[2017-09-24] MEDS: Famotidine 20 MG TABLET PO SCH (08:28)
[2017-09-24] MEDS: Insulin LISPRO 300 UNITS/3 ML VIAL SQ SCH ×3 (08:29→17:06)
[2017-09-24] MEDS: (Liraglutide [Victoza 2-Pak] 1.2 MG) SQ SCH (08:29)
--- NOTE | 2017-09-24 11:56 | Internal Med Progress Note ---
Date of Encounter: 09/24/17 Time of Encounter: 11:54 - Assessment and plan (1) Weakness Current Visit: No Status: Acute Assessment and plan: PT/OT. will follow progress (2) CKD (chronic kidney disease) stage 3, GFR 30-59 ml/min Current Visit: No Status: Chronic Assessment and plan: baseline Creatinine. will monitor labs. (3) Essential hypertension Current Visit: No Status: Chronic Assessment and plan: stable with current meds. (4) Hyperlipidemia Current Visit: No Status: Chronic Assessment and plan: continue fenofibrate Qualifiers: Hyperlipidemia type: mixed hyperlipidemia Qualified Code(s): E78.2 - Mixed hyperlipidemia (5) Diastolic CHF Current Visit: No Status: Chronic Assessment and plan: stable. monitor for decompensation Qualifiers: Congestive heart failure chronicity: chronic Qualified Code(s): I50.32 - Chronic diastolic (congestive) heart failure (6) Type 2 diabetes mellitus Current Visit: No Status: Chronic Assessment and plan: controlled with current meds. no signs of hypoglycemia. monitor FSBS. will adjust meds as necessary. Qualifiers: Diabetes mellitus complication status: with neurologic complications Diabetes mellitus complication detail: with polyneuropathy Diabetes mellitus chcf insulin use: with brass molder helper use Qualified Code(s): E11.42 - Type 2 diabetes mellitus with diabetic polyneuropathy; Z79.4 - blood splatter analyst (current) use of insulin; Z79.4 - blood splatter analyst (current) use of insulin; Z79.4 - USP ( current) use of insulin; Z79.4 - blood splatter analyst (current) use of insulin (7) CVA (cerebral vascular accident) Current Visit: No Status: Acute Assessment and plan: PT/OT/ST- continue. 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 states left hip and leg pain has been a chronic issue. took percocet or tylenol at home for relief. c/o dry eyes, left > Right. will order artificial tears. son to bring in glasses. denies ASHLEY , vertigo, chest pain or any other issues at this time. - Constitutional Vitals: Temp Pulse Resp BP Pulse Ox 98.4 F 79 16 129/53 93 09/24/17 07:00 09/24/17 07:00 09/24/17 07:00 09/24/17 07:00 09/24/17 07:00 General appearance: Present: A&O X 3, morbidly obese, answers questions appropriately - Head Head exam: Present: atraumatic, normocephalic - Eye Eye exam: Present: PERRL, conjuntiva pink, sclera anicteric Pupils: Present: PERRL - Neck Neck exam general surgery: Present: supple, trachea midline. Absent: lymphadenopathy - Respiratory Respiratory exam: Present: CTAB. Absent: accessory muscle use, rales, rhonchi, wheezes - Cardiovascular Cardiovascular exam: Present: RRR, +S1, +S2. Absent: diastolic murmur, gallop, rubs, systolic murmur - GI/Abdominal GI/Abdominal exam: Present: normal bowel sounds, soft, no peritoneal signs. Absent: distended, tenderness - Extremities Exam Extremities exam: Present: warm, radial pulses palpable and symmetrical. Absent : calf tenderness, cyanotic, pedal edema Additional comments: right sided weakness - Expanded Upper Extremities Exam Upper Arm exam: Present: full ROM Hand wrist exam: Present: full ROM - Neurological Exam Neurological exam: Present: CN II-XII intact, oriented X3, no focal deficits. Absent: pronater drift, facial droop, speech deficit - Skin Skin exam: Present: dry, intact Internal Medicine: Result - Labs CBC & Chem 7: 09/23/17 05:15 09/23/17 05:15 - ABG Interpretation ABG results: PT/INR, D-dimer PT 11.7 Seconds (9.4-12.1) 09/23/17 05:15 Consult Discharge Plan - Plan Referrals: Melida Santos, RADIOLOGIC TECHNOLOGIST CHIEF [Primary Care Provider] -
[2017-09-24] MEDS: Artificial Tears SOLN 15 ML BOTTLE BOTH EYES PRN (14:06)
[2017-09-24] MEDS: Insulin DETEMIR 100 UNIT/ML X5UNITS SQ SCH (22:13)
[2017-09-24] MEDS: traZODone 50 MG TABLET PO SCH (22:14)
[2017-09-24] MEDS: Fenofibrate 54 MG TABLET PO SCH (22:14)
[2017-09-25] MEDS: *HR* Enoxaparin 40 MG/0.4 ML SYRINGE SQ SCH (05:45)
[2017-09-25] MEDS: Ranolazine 500 MG TAB.ER.12H PO SCH ×2 (08:52→21:09)
[2017-09-25] MEDS: Cholecalciferol (D-3) 1,000 UNIT TABLET PO SCH (08:52)
[2017-09-25] MEDS: Gabapentin 400 MG CAPSULE PO SCH ×3 (08:52→21:09)
[2017-09-25] MEDS: BuPROPion SR (12 HR) 100 MG TABLET PO SCH (08:52)
[2017-09-25] MEDS: Insulin LISPRO 300 UNITS/3 ML VIAL SQ SCH ×3 (08:53→16:39)
[2017-09-25] MEDS: Famotidine 20 MG TABLET PO SCH (08:53)
[2017-09-25] MEDS: (Liraglutide [Victoza 2-Pak] 1.2 MG) SQ SCH (08:55)
--- NOTE | 2017-09-25 12:50 | Internal Med Progress Note ---
Date of Encounter: 09/25/17 Time of Encounter: 12:48 - Assessment and plan (1) CVA (cerebral vascular accident) Current Visit: No Status: Acute Assessment and plan: No acute issues. Patient's neurological exam appears stable to her baseline per medical records. We will continue with therapy and current plan of care. Patient has complained of headache, which she describes as a dull pain and as being in a chronic issue. We will continue with current pain medications, which she states has been effective. 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 We will continue to cover glucose with sliding scale and will evaluate patient's fingersticks for possible adjustment of long acting insulin. We will continue with current medications Qualifiers: Diabetes mellitus moth exterminator insulin use: with moth exterminator use Qualified Code( s): E11.65 - Type 2 diabetes mellitus with hyperglycemia; Z79.4 - lobsterman ( current) use of insulin; Z79.4 - lobsterman (current) use of insulin; Z79.4 - nursing home (current) use of insulin; Z79.4 - lobsterman (current) use of insulin (3) CKD (chronic kidney disease) stage 3, GFR 30-59 ml/min Current Visit: No Status: Chronic Assessment and plan: No acute issues. We will continue with current medications. Will review most recent labs (4) Hypertension Current Visit: No Status: Chronic Assessment and plan: Vital signs been stable. We will continue with current medications. Qualifiers: Hypertension type: essential hypertension Qualified Code(s): I10 - Essential (primary) hypertension - Subjective Interval history: Patient appears relaxed but has multiple complaints of pain. Patient states that she has a headache which she describes as a pressure type pain but states this is a chronic issue that she has had area and states that she received [place] earlier in the day which was effective. Patient also complains of low back pain which she states increased during therapy. Again patient states is a chronic issue. Overall patient appears relaxed and very stoic with complaints of pain. Denies any shortness of breath. Denies any acute neurological changes. - Constitutional Vitals: Temp Pulse Resp BP Pulse Ox 97.6 F 77 18 128/81 90 09/25/17 08:00 09/25/17 08:00 09/25/17 08:00 09/25/17 08:00 09/25/17 08:00 General appearance: Present: A&O X 3, morbidly obese, answers questions appropriately - Head Head exam: Present: atraumatic, normocephalic Additional comments: Complains of headache but no noted tenderness on exam - Eye Eye exam: Present: PERRL, conjuntiva pink, sclera anicteric Pupils: Present: PERRL - Neck Neck exam general surgery: Present: supple, trachea midline. Absent: lymphadenopathy - Respiratory Respiratory exam: Present: CTAB. Absent: accessory muscle use, rales, rhonchi, wheezes Additional comments: Lungs are clear to up her rowe but noted diminished to posterior basilar rowe - Cardiovascular Cardiovascular exam: Present: RRR, +S1, +S2. Absent: diastolic murmur, gallop, rubs, systolic murmur - GI/Abdominal GI/Abdominal exam: Present: normal bowel sounds, soft, no peritoneal signs. Absent: distended, tenderness - Extremities Exam Extremities exam: Present: warm, radial pulses palpable and symmetrical. Absent : calf tenderness, cyanotic, pedal edema - Neurological Exam Neurological exam: Present: CN II-XII intact, oriented X3, no focal deficits. Absent: pronater drift, facial droop, speech deficit Additional comments: Slight generalized weakness - Skin Skin exam: Present: dry, intact Internal Medicine: Result - Labs CBC & Chem 7: 09/23/17 05:15 09/23/17 05:15 - ABG Interpretation ABG results: PT/INR, D-dimer PT 11.7 Seconds (9.4-12.1) 09/23/17 05:15 Consult Discharge Plan - Plan Referrals: Melida Santos CNP [Primary Care Provider] -
[2017-09-25] MEDS: Insulin DETEMIR 100 UNIT/ML X5UNITS SQ SCH (21:08)
[2017-09-25] MEDS: traZODone 50 MG TABLET PO SCH (21:09)
[2017-09-25] MEDS: Fenofibrate 54 MG TABLET PO SCH (21:10)
[2017-09-26] MEDS: *HR* Enoxaparin 40 MG/0.4 ML SYRINGE SQ SCH (06:05)
[2017-09-26] MEDS: Insulin LISPRO 300 UNITS/3 ML VIAL SQ SCH ×3 (07:45→17:19)
[2017-09-26] MEDS: Gabapentin 400 MG CAPSULE PO SCH ×3 (07:53→21:18)
[2017-09-26] MEDS: BuPROPion SR (12 HR) 100 MG TABLET PO SCH (07:54)
[2017-09-26] MEDS: Cholecalciferol (D-3) 1,000 UNIT TABLET PO SCH (07:54)
[2017-09-26] MEDS: (Liraglutide [Victoza 2-Pak] 1.2 MG) SQ SCH (07:54)
[2017-09-26] MEDS: Ranolazine 500 MG TAB.ER.12H PO SCH ×2 (07:54→21:19)
[2017-09-26] MEDS: Famotidine 20 MG TABLET PO SCH (07:54)
--- NOTE | 2017-09-26 14:44 | Internal Med Progress Note ---
Date of Encounter: 09/26/17 Time of Encounter: 14:00 - Assessment and plan (1) Physical deconditioning Current Visit: Yes Status: Acute Assessment and plan: Continue working with therapists. (2) Hyperglycemia due to type 2 diabetes mellitus Current Visit: No Status: Chronic Assessment and plan: Continue SSI. Consider adjusting detemir as clinically appropriae. Qualifiers: Diabetes mellitus snf insulin use: with snf use Qualified Code( s): E11.65 - Type 2 diabetes mellitus with hyperglycemia; Z79.4 - intermediate accountant ( current) use of insulin; Z79.4 - skilled nursing (current) use of insulin; Z79.4 - intermediate accountant (current) use of insulin; Z79.4 - intermediate accountant (current) use of insulin (3) Musculoskeletal pain Current Visit: Yes Status: Chronic Assessment and plan: - Continue Tylenol PRN. - Will start heating pad. - Time Spent With Patient less than 15 minutes - Subjective Interval history: - Reports some ASHLEY, neck pain, and low back pain. - Constitutional Vitals: Temp Pulse Resp BP Pulse Ox 98.3 F 67 16 159/70 93 09/26/17 07:00 09/26/17 07:00 09/26/17 07:00 09/26/17 07:00 09/26/17 07:00 General appearance: Present: A&O X 3, morbidly obese, answers questions appropriately Exam: Gen: Sleeping comfortably prior to encounter. Woke up and answered questions appropriately during encounter. A&Ox3, NAD. Obese HEENT: NCAT. Neck: NO palpable lymphadenopathy or thyromegaly. CV: RRR, S1S2. No murmur. Capillary refill < 2 seconds. Pulm: CTAB. Abd: (+)BS. NDNT. Neuro: Global weakness, otherwise non-focal. Skin: No rash. Ext: No pitting edema. Internal Medicine: Result - Labs CBC & Chem 7: 09/23/17 05:15 09/23/17 05:15 - ABG Interpretation ABG results: PT/INR, D-dimer PT 11.7 Seconds (9.4-12.1) 09/23/17 05:15 Consult Discharge Plan - Plan Referrals: Melida Santos BRAILLE PROOFREADER [Primary Care Provider] -
[2017-09-26] MEDS: Fenofibrate 54 MG TABLET PO SCH (21:18)
[2017-09-26] MEDS: traZODone 50 MG TABLET PO SCH (21:20)
[2017-09-26] MEDS: Insulin DETEMIR 100 UNIT/ML X5UNITS SQ SCH (21:28)
[2017-09-27] MEDS: *HR* Enoxaparin 40 MG/0.4 ML SYRINGE SQ SCH (05:58)
[2017-09-27] MEDS: Insulin LISPRO 300 UNITS/3 ML VIAL SQ SCH ×3 (07:51→17:00)
[2017-09-27] MEDS: BuPROPion SR (12 HR) 100 MG TABLET PO SCH (08:22)
[2017-09-27] MEDS: Gabapentin 400 MG CAPSULE PO SCH ×3 (08:22→21:33)
[2017-09-27] MEDS: Ranolazine 500 MG TAB.ER.12H PO SCH ×2 (08:22→21:38)
[2017-09-27] MEDS: Famotidine 20 MG TABLET PO SCH (08:23)
[2017-09-27] MEDS: Cholecalciferol (D-3) 1,000 UNIT TABLET PO SCH (08:23)
[2017-09-27] MEDS: (Liraglutide [Victoza 2-Pak] 1.2 MG) SQ SCH (08:32)
--- NOTE | 2017-09-27 13:00 | Internal Med Progress Note ---
Date of Encounter: 09/27/17 Time of Encounter: 12:20 - Assessment and plan (1) Physical deconditioning Current Visit: Yes Status: Acute Assessment and plan: Continue working with therapists. (2) Hyperglycemia due to type 2 diabetes mellitus Current Visit: No Status: Chronic Assessment and plan: Continue SSI. Consider adjusting detemir as clinically appropriate. Qualifiers: Diabetes mellitus nursing home insulin use: with nursing home use Qualified Code( s): E11.65 - Type 2 diabetes mellitus with hyperglycemia; Z79.4 - terminal clerk ( current) use of insulin; Z79.4 - terminal clerk (current) use of insulin; Z79.4 - [facility] (current) use of insulin; Z79.4 - [facility] (current) use of insulin (3) Musculoskeletal pain Current Visit: Yes Status: Chronic Assessment and plan: - Continue Tylenol PRN and heating pad. - Time Spent With Patient less than 15 minutes - Subjective Interval history: - Doing well, feeling "pretty good." No particular complaint or concern at this time. - Heating pad is helping with the MSK pain greatly. - Constitutional Vitals: Temp Pulse Resp BP Pulse Ox 97.8 F 64 16 135/61 96 09/27/17 07:39 09/27/17 07:39 09/27/17 07:39 09/27/17 07:39 09/27/17 07:39 General appearance: Present: A&O X 3, morbidly obese, answers questions appropriately Exam: Gen: A&Ox3, NAD. Obese HEENT: NCAT. Neck: NO palpable lymphadenopathy or thyromegaly. CV: RRR, S1S2. No murmur. Capillary refill < 2 seconds. Pulm: CTAB. Abd: (+)BS. NDNT. Neuro: Global weakness, otherwise non-focal. Skin: No rash. Ext: No pitting edema. Internal Medicine: Result - Labs CBC & Chem 7: 09/23/17 05:15 09/23/17 05:15 - ABG Interpretation ABG results: PT/INR, D-dimer PT 11.7 Seconds (9.4-12.1) 09/23/17 05:15 Consult Discharge Plan - Plan Referrals: Melida Santos SPINDLE REPAIRER [Primary Care Provider] -
[2017-09-27] MEDS: traZODone 50 MG TABLET PO SCH (21:34)
[2017-09-27] MEDS: Fenofibrate 54 MG TABLET PO SCH (21:35)
[2017-09-27] MEDS: Artificial Tears SOLN 15 ML BOTTLE BOTH EYES PRN (21:35)
[2017-09-27] MEDS: Insulin DETEMIR 100 UNIT/ML X5UNITS SQ SCH (21:39)
[2017-09-28] MEDS: *HR* Enoxaparin 40 MG/0.4 ML SYRINGE SQ SCH (05:43)
[2017-09-28 06:13] LABS: Basophils % 0.5 %; Eosinophils # 0.3 K/mcL (0.0-0.6); Eosinophils % 5.9 %; Hemoglobin 10.7 g/dL (11.5-15.4); Immature Granulocytes % 0.2 % (0-4); Lymphocytes # 2.1 K/mcL (0.6-4.6); Lymphocytes % 49.3 %; Mean Corpuscular HGB Conc 32.4 g/dL (31.6-35.5); Mean Corpuscular Hemoglobin 28.2 pg (28.0-33.3); Mean Corpuscular Volume 87.1 fL (83.0-100.0); Mean Platelet Volume 10.2 fL (9.4-12.4); Monocytes # 0.4 K/mcL (0.0-1.3); Monocytes % 8.3 %; Neutrophils # 1.5 K/mcL (1.6-8.9); Platelet Count 223 K/mcL (140-400); Red Blood Count 3.79 M/mcL (3.82-4.97); Red Cell Distribution Width 14.1 % (11.5-14.5); Segmented Neutrophils % 35.8 %
[2017-09-28 06:33] LABS: Calcium 9.9 mg/dL (8.6-10.8); Potassium 4.5 mEq/L (3.5-4.5)
[2017-09-28] MEDS: BuPROPion SR (12 HR) 100 MG TABLET PO SCH (08:48)
[2017-09-28] MEDS: Cholecalciferol (D-3) 1,000 UNIT TABLET PO SCH (08:48)
[2017-09-28] MEDS: Famotidine 20 MG TABLET PO SCH (08:48)
[2017-09-28] MEDS: Gabapentin 400 MG CAPSULE PO SCH ×3 (08:48→21:09)
[2017-09-28] MEDS: Insulin LISPRO 300 UNITS/3 ML VIAL SQ SCH ×3 (08:49→16:54)
[2017-09-28] MEDS: Ranolazine 500 MG TAB.ER.12H PO SCH ×2 (08:51→21:09)
[2017-09-28] MEDS: (Liraglutide [Victoza 2-Pak] 1.2 MG) SQ SCH (08:51)
--- NOTE | 2017-09-28 12:55 | Internal Med Progress Note ---
Date of Encounter: 09/28/17 Time of Encounter: 12:50 - Assessment and plan (1) CVA (cerebral vascular accident) Current Visit: No Status: Acute Assessment and plan: No acute issues. Patient's neurological exam appears stable to her baseline per medical records. We will continue with therapy and current plan of care. Patient has complained of headache, which she describes as a dull pain and as being in a chronic issue. We will continue with current pain medications. 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 Glucose has been <200. Will continue with current DM coverage.. Qualifiers: Diabetes mellitus terminal make up operator insulin use: with terminal make up operator use Qualified Code( s): E11.65 - Type 2 diabetes mellitus with hyperglycemia; Z79.4 - predatory animal exterminator ( current) use of insulin; Z79.4 - [facility] (current) use of insulin; Z79.4 - [facility] (current) use of insulin; Z79.4 - [facility] (current) use of insulin (3) CKD (chronic kidney disease) stage 3, GFR 30-59 ml/min Current Visit: No Status: Chronic Assessment and plan: No acute issues. We will continue with current medications. Will review most recent labs (4) Hypertension Current Visit: No Status: Chronic Assessment and plan: Vital signs been stable. We will continue with current medications. Qualifiers: Hypertension type: essential hypertension Qualified Code(s): I10 - Essential (primary) hypertension - Subjective Interval history: Patient appears relaxed but has multiple complaints of pain. Patient states that she continues to have a headache which she describes as a pressure type pain but states this is a chronic issue that she has had. Patient also complains of low back pain which she states increased during therapy. Again patient states also is a chronic issue. Overall patient appears relaxed and very stoic with complaints of pain. Denies any shortness of breath. Denies any acute neurological changes. - Constitutional Vitals: Temp Pulse Resp BP Pulse Ox 97.5 F L 67 18 156/80 95 09/28/17 07:00 09/28/17 07:00 09/28/17 07:00 09/28/17 07:00 09/28/17 07:00 General appearance: Present: A&O X 3, morbidly obese, pleasant, answers questions appropriately - Head Head exam: Present: atraumatic, normocephalic - Eye Eye exam: Present: PERRL, conjuntiva pink, sclera anicteric Pupils: Present: PERRL - Neck Neck exam general surgery: Present: supple, trachea midline. Absent: lymphadenopathy - Respiratory Respiratory exam: Present: CTAB. Absent: accessory muscle use, rales, rhonchi, wheezes Additional comments: CTA to upper [place] and diminished to the bases. - Cardiovascular Cardiovascular exam: Present: RRR, +S1, +S2. Absent: diastolic murmur, gallop, rubs, systolic murmur - GI/Abdominal GI/Abdominal exam: Present: normal bowel sounds, soft, no peritoneal signs. Absent: distended, tenderness - Extremities Exam Extremities exam: Present: warm, radial pulses palpable and symmetrical. Absent : calf tenderness, cyanotic, pedal edema - Neurological Exam Neurological exam: Present: CN II-XII intact, oriented X3, no focal deficits. Absent: pronater drift, facial droop, speech deficit - Skin Skin exam: Present: dry, intact Internal Medicine: Result - Labs CBC & Chem 7: 09/28/17 06:05 09/28/17 06:05 Labs: Short CBC 09/28/17 Range/Units 06:05 WBC 4.2 L (4.3-11.1) K/mcL Hgb 10.7 L (11.5-15.4) g/dL Hct 33.0 L (35.3-44.9) % Plt Count 223 (140-400) K/mcL Neutrophils # 1.5 L (1.6-8.9) K/mcL BMP 09/28/17 06:05 Sodium 138 Potassium 4.5 Chloride 105 Carbon Dioxide 24 BUN 17 Creatinine 1.45 H Glucose 203 H Calcium 9.9 - ABG Interpretation ABG results: PT/INR, D-dimer PT 11.7 Seconds (9.4-12.1) 09/23/17 05:15 Consult Discharge Plan - Plan Referrals: Melida Santos JUNIOR SALES REPRESENTATIVE [Primary Care Provider] -
[2017-09-28] MEDS: Insulin DETEMIR 100 UNIT/ML X5UNITS SQ SCH (21:09)
[2017-09-28] MEDS: Fenofibrate 54 MG TABLET PO SCH (21:10)
[2017-09-28] MEDS: traZODone 50 MG TABLET PO SCH (21:10)
[2017-09-29] MEDS: *HR* Enoxaparin 40 MG/0.4 ML SYRINGE SQ SCH (05:09)
[2017-09-29] MEDS: BuPROPion SR (12 HR) 100 MG TABLET PO SCH (08:10)
[2017-09-29] MEDS: Gabapentin 400 MG CAPSULE PO SCH ×3 (08:10→20:59)
[2017-09-29] MEDS: Cholecalciferol (D-3) 1,000 UNIT TABLET PO SCH (08:11)
[2017-09-29] MEDS: Insulin LISPRO 300 UNITS/3 ML VIAL SQ SCH ×3 (08:11→16:48)
[2017-09-29] MEDS: (Liraglutide [Victoza 2-Pak] 1.2 MG) SQ SCH (08:11)
[2017-09-29] MEDS: Famotidine 20 MG TABLET PO SCH (08:11)
[2017-09-29] MEDS: Ranolazine 500 MG TAB.ER.12H PO SCH ×2 (08:11→20:59)
[2017-09-29] MEDS: Artificial Tears SOLN 15 ML BOTTLE BOTH EYES PRN (10:47)
--- NOTE | 2017-09-29 11:39 | Internal Med Progress Note ---
Date of Encounter: 09/29/17 Time of Encounter: 11:36 - Assessment and plan (1) Weakness Current Visit: No Status: Acute Assessment and plan: PT/OT. will follow progress (2) CKD (chronic kidney disease) stage 3, GFR 30-59 ml/min Current Visit: No Status: Chronic Assessment and plan: No acute issues. We will continue with current medications. Will review most recent labs (3) Essential hypertension Current Visit: No Status: Chronic Assessment and plan: stable with current meds. (4) Hyperlipidemia Current Visit: No Status: Chronic Assessment and plan: continue fenofibrate Qualifiers: Hyperlipidemia type: mixed hyperlipidemia Qualified Code(s): E78.2 - Mixed hyperlipidemia (5) Diastolic CHF Current Visit: No Status: Chronic Assessment and plan: stable. monitor for decompensation Qualifiers: Congestive heart failure chronicity: chronic Qualified Code(s): I50.32 - Chronic diastolic (congestive) heart failure (6) Type 2 diabetes mellitus Current Visit: No Status: Chronic Assessment and plan: controlled with current meds. no signs of hypoglycemia. monitor FSBS. will adjust meds as necessary. Qualifiers: Diabetes mellitus complication status: with neurologic complications Diabetes mellitus complication detail: with polyneuropathy Diabetes mellitus nursing home insulin use: with intermediate teacher use Qualified Code(s): E11.42 - Type 2 diabetes mellitus with diabetic polyneuropathy; Z79.4 - alf (current) use of insulin; Z79.4 - alf (current) use of insulin; Z79.4 - terminal operator ( current) use of insulin; Z79.4 - alf (current) use of insulin (7) CVA (cerebral vascular accident) Current Visit: No Status: Acute Assessment and plan: No acute issues. Patient's neurological exam appears stable to her baseline per medical records. We will continue with therapy and current plan of care. Patient has complained of headache, which she describes as a dull pain and as being in a chronic issue. We will continue with current pain medications. 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 no new neuro deficits. c/o ASHLEY, low back pain, both of which are chronic issues. c/o nausea. no vomitting, fever, or chills. no diarrhea. last BM this am. maintaining appetite and hydration. denies vertigo, chest pain or any other issues at this time. will order zofran prn. - Constitutional Vitals: Temp Pulse Resp BP Pulse Ox 98.4 F 64 18 159/80 97 09/29/17 07:00 09/29/17 07:00 09/29/17 07:00 09/29/17 07:00 09/29/17 07:00 General appearance: Present: A&O X 3, morbidly obese, pleasant, answers questions appropriately - Head Head exam: Present: atraumatic, normocephalic - Eye Eye exam: Present: PERRL, conjuntiva pink, sclera anicteric Pupils: Present: PERRL - Neck Neck exam general surgery: Present: supple, trachea midline. Absent: lymphadenopathy - Respiratory Respiratory exam: Present: CTAB. Absent: accessory muscle use, rales, rhonchi, wheezes - Cardiovascular Cardiovascular exam: Present: RRR, +S1, +S2. Absent: diastolic murmur, gallop, rubs, systolic murmur - GI/Abdominal GI/Abdominal exam: Present: normal bowel sounds, soft, no peritoneal signs. Absent: distended, tenderness - Extremities Exam Extremities exam: Present: warm, radial pulses palpable and symmetrical. Absent : calf tenderness, cyanotic, pedal edema Additional comments: slight weakness with grasping and holding objects with right hand - Neurological Exam Neurological exam: Present: CN II-XII intact, oriented X3, no focal deficits. Absent: pronater drift, facial droop, speech deficit - Skin Skin exam: Present: dry, intact Internal Medicine: Result - Labs CBC & Chem 7: 09/28/17 06:05 09/28/17 06:05 - ABG Interpretation ABG results: PT/INR, D-dimer PT 11.7 Seconds (9.4-12.1) 09/23/17 05:15 Consult Discharge Plan - Plan Referrals: Melida Santos TUBE MAKER [Primary Care Provider] -
[2017-09-29] MEDS: Insulin DETEMIR 100 UNIT/ML X5UNITS SQ SCH (20:58)
[2017-09-29] MEDS: Fenofibrate 54 MG TABLET PO SCH (20:59)
[2017-09-29] MEDS: traZODone 50 MG TABLET PO SCH (20:59)
[2017-09-30] MEDS: *HR* Enoxaparin 40 MG/0.4 ML SYRINGE SQ SCH (06:12)
[2017-09-30] MEDS: Insulin LISPRO 300 UNITS/3 ML VIAL SQ SCH ×3 (08:13→17:11)
[2017-09-30] MEDS: BuPROPion SR (12 HR) 100 MG TABLET PO SCH (08:23)
[2017-09-30] MEDS: (Liraglutide [Victoza 2-Pak] 1.2 MG) SQ SCH (08:23)
[2017-09-30] MEDS: Ranolazine 500 MG TAB.ER.12H PO SCH ×2 (08:23→20:33)
[2017-09-30] MEDS: Cholecalciferol (D-3) 1,000 UNIT TABLET PO SCH (08:23)
[2017-09-30] MEDS: Famotidine 20 MG TABLET PO SCH (08:23)
[2017-09-30] MEDS: Gabapentin 400 MG CAPSULE PO SCH ×3 (08:23→20:34)
--- NOTE | 2017-09-30 14:22 | Internal Med Progress Note ---
<Brayden Kowalski - Last Filed: 09/30/17 14:20> Date of Encounter: 09/30/17 Time of Encounter: 14:20 - Assessment and plan (1) CVA (cerebral vascular accident) Current Visit: Yes Status: Acute Assessment and plan: No acute issues. Patient's neurological exam appears stable to her baseline per medical records. We will continue with therapy and current plan of care. 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 We will continue with current pain medications. 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 Glucose has been <200. Will continue with current DM coverage.. Qualifiers: Diabetes mellitus detention insulin use: with detention use Qualified Code( s): E11.65 - Type 2 diabetes mellitus with hyperglycemia; Z79.4 - retirement ( current) use of insulin; Z79.4 - retirement (current) use of insulin; Z79.4 - termite control servicer (current) use of insulin; Z79.4 - retirement (current) use of insulin (3) CKD (chronic kidney disease) stage 3, GFR 30-59 ml/min Current Visit: Yes Status: Chronic Assessment and plan: No acute issues. We will continue with current medications. Will review most recent labs (4) Hypertension Current Visit: Yes Status: Chronic Assessment and plan: Vital signs been stable. We will continue with current medications. Qualifiers: Hypertension type: essential hypertension Qualified Code(s): I10 - Essential (primary) hypertension - Subjective Interval history: Patient appears relaxed but has multiple complaints of pain. Patient states that she continues to have a headache which she describes as a pressure type pain but states this is a chronic issue that she has had. Overall patient appears relaxed and very stoic with complaints of pain. Denies any shortness of breath. Denies any acute neurological changes. - Constitutional Vitals: Temp Pulse Resp BP Pulse Ox 98.3 F 63 18 166/76 97 09/30/17 07:00 09/30/17 07:00 09/30/17 07:00 09/30/17 07:00 09/30/17 07:00 General appearance: Present: A&O X 3, morbidly obese, pleasant, answers questions appropriately - Head Head exam: Present: atraumatic, normocephalic - Eye Eye exam: Present: PERRL, conjuntiva pink, sclera anicteric Pupils: Present: PERRL - Neck Neck exam general surgery: Present: supple, trachea midline. Absent: lymphadenopathy - Respiratory Respiratory exam: Present: CTAB. Absent: accessory muscle use, rales, rhonchi, wheezes - Cardiovascular Cardiovascular exam: Present: RRR, +S1, +S2. Absent: diastolic murmur, gallop, rubs, systolic murmur - GI/Abdominal GI/Abdominal exam: Present: normal bowel sounds, soft, no peritoneal signs. Absent: distended, tenderness - Extremities Exam Extremities exam: Present: warm, radial pulses palpable and symmetrical. Absent : calf tenderness, cyanotic, pedal edema - Neurological Exam Neurological exam: Present: CN II-XII intact, oriented X3, no focal deficits. Absent: pronater drift, facial droop, speech deficit - Skin Skin exam: Present: dry, intact Internal Medicine: Result - Labs CBC & Chem 7: 09/28/17 06:05 09/28/17 06:05 - ABG Interpretation ABG results: PT/INR, D-dimer PT 11.7 Seconds (9.4-12.1) 09/23/17 05:15 Consult Discharge Plan - Plan Referrals: Melida Santos, PEARL TECHNICIAN [Primary Care Provider] - <Garrett Woodward - Last Filed: 09/30/17 15:10> Date of Encounter: 09/30/17 - Assessment and plan (1) Pneumonia Current Visit: No Status: Acute Qualifiers: Pneumonia type: due to unspecified organism Laterality: right Lung location: lower lobe of lung Qualified Code(s): J18.1 - Lobar pneumonia, unspecified organism (2) CVA (cerebral vascular accident) Current Visit: Yes Status: Acute Qualifiers: CVA mechanism: embolism Precerebral and cerebral artery: cerebellar artery Laterality of affected vessel: bilateral Qualified Code(s): 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 (3) Recurrent falls Current Visit: No Status: Acute (4) Diastolic CHF Current Visit: No Status: Chronic Qualifiers: Congestive heart failure chronicity: chronic Qualified Code(s): I50.32 - Chronic diastolic (congestive) heart failure (5) Type 2 diabetes mellitus Current Visit: No Status: Chronic Qualifiers: Diabetes mellitus complication status: with neurologic complications Diabetes mellitus complication detail: with polyneuropathy Diabetes mellitus adjunct faculty for medical terminology insulin use: with detention use Qualified Code(s): E11.42 - Type 2 diabetes mellitus with diabetic polyneuropathy; Z79.4 - termite control servicer (current) use of insulin; Z79.4 - termite control servicer (current) use of insulin; Z79.4 - retirement ( current) use of insulin; Z79.4 - termite control servicer (current) use of insulin - Constitutional Vitals: Temp Pulse Resp BP Pulse Ox 98.3 F 63 18 166/76 97 09/30/17 07:00 09/30/17 07:00 09/30/17 07:00 09/30/17 07:00 09/30/17 07:00 - Head Head exam: Present: atraumatic, normal inspection, normocephalic - Neck Neck exam general surgery: Present: supple, trachea midline. Absent: lymphadenopathy - Respiratory Respiratory exam: Present: CTAB. Absent: accessory muscle use, rales, rhonchi, wheezes - Cardiovascular Cardiovascular exam: Present: RRR, +S1, +S2. Absent: diastolic murmur, gallop, rubs, systolic murmur Internal Medicine: Result - Labs CBC & Chem 7: 09/28/17 06:05 09/28/17 06:05 - ABG Interpretation ABG results: PT/INR, D-dimer PT 11.7 Seconds (9.4-12.1) 09/23/17 05:15
--- NOTE | 2017-09-30 14:28 | Internal Med Progress Note ---
Date of Encounter: 09/30/17 Time of Encounter: 14:26 - Assessment and plan (1) CVA (cerebral vascular accident) Current Visit: Yes Status: Acute Assessment and plan: No acute issues. Patient's neurological exam appears stable to her baseline per medical records. We will continue with therapy and current plan of care. 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 We will continue with current pain medications. 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 Glucose has been <200. Will continue with current DM coverage.. Qualifiers: Diabetes mellitus [facility] insulin use: with [facility] use Qualified Code( s): E11.65 - Type 2 diabetes mellitus with hyperglycemia; Z79.4 - long-term ( current) use of insulin; Z79.4 - long-term (current) use of insulin; Z79.4 - long-term (current) use of insulin; Z79.4 - long-term (current) use of insulin (3) CKD (chronic kidney disease) stage 3, GFR 30-59 ml/min Current Visit: Yes Status: Chronic Assessment and plan: No acute issues. We will continue with current medications. Will review most recent labs (4) Hypertension Current Visit: Yes Status: Chronic Assessment and plan: Vital signs been stable. We will continue with current medications. Qualifiers: Hypertension type: essential hypertension Qualified Code(s): I10 - Essential (primary) hypertension - Subjective Interval history: Patient appears relaxed but has multiple complaints of pain. Patient states that she continues to have a headache which she describes as a pressure type pain but states this is a chronic issue that she has had. Overall patient appears relaxed and very stoic with complaints of pain. Denies any shortness of breath. Denies any acute neurological changes. - Constitutional Vitals: Temp Pulse Resp BP Pulse Ox 98.3 F 63 18 166/76 97 09/30/17 07:00 09/30/17 07:00 09/30/17 07:00 09/30/17 07:00 09/30/17 07:00 General appearance: Present: A&O X 3, morbidly obese, pleasant, answers questions appropriately Internal Medicine: Result - Labs CBC & Chem 7: 09/28/17 06:05 09/28/17 06:05 - ABG Interpretation ABG results: PT/INR, D-dimer PT 11.7 Seconds (9.4-12.1) 09/23/17 05:15 Consult Discharge Plan - Plan Referrals: Melida Santos, COMPLIANCE PROJECT MANAGER [Primary Care Provider] -
--- NOTE | 2017-09-30 14:46 | Discharge Summary ---
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 (3) Recurrent falls Priority: Secondary Status: Acute (4) Diastolic CHF Priority: Secondary Status: Chronic Qualifiers: Congestive heart failure chronicity: chronic Qualified Code(s): I50.32 - Chronic diastolic (congestive) heart failure (5) Type 2 diabetes mellitus Priority: Secondary Status: Chronic Qualifiers: Diabetes mellitus complication status: with neurologic complications Diabetes mellitus complication detail: with polyneuropathy Diabetes mellitus detention insulin use: with detention use Qualified Code(s): E11.42 - Type 2 diabetes mellitus with diabetic polyneuropathy; Z79.4 - petroleum terminal plant operator (current) use of insulin; Z79.4 - skilled nursing (current) use of insulin; Z79.4 - skilled nursing ( current) use of insulin; Z79.4 - skilled nursing (current) use of insulin - Discharge Medications Home Medications: Cholecalciferol (Vitamin D3) [Vitamin D3] 50,000 unit PO FR 06/14/15 [History] Fenofibrate [Tricor] 48 mg PO HS 06/14/15 [History] Ranolazine [Ranexa] 1,000 mg PO BID 06/14/15 [History] Doxepin [Sinequan] 50 mg PO HS 03/21/16 [History] Insulin Glargine [Lantus] 90 unit SQ HS 03/21/16 [History] Insulin LISPRO [HumaLOG] 30 - 50 units SQ TIDWM 03/21/16 [History] Gabapentin [Neurontin] 400 mg PO TID 07/24/17 [History] HydrOXYzine 10 mg PO BID 07/24/17 [History] Liraglutide [Victoza 2-Pavel] 1.2 mg SQ DAILY 07/24/17 [History] Ranitidine HCl [Zantac] 300 mg PO DAILY 07/24/17 [History] buPROPion HCl [Bupropion HCl Sr] 200 mg PO DAILY 07/24/17 [History] Trazodone HCl 300 mg PO HS 08/31/17 [History] Lisinopril [Zestril] 10 mg PO DAILY tablet 09/05/17 [Rx] Metoprolol [Lopressor] 50 mg PO BID tablet 09/05/17 [Rx] Dicyclomine [Bentyl] 10 mg PO QID 09/19/17 [History] Allergies/Adverse Reactions: 3 Allergy/AdvReac Type Severity Reaction Status Date / Time Iodinated Contrast- Oral and Allergy Rash Verified 02/19/17 23:16 IV Dye iron Allergy Hives Verified 02/19/17 23:16 [place] Allergy Nausea Verified 02/19/17 23:16 Sulfa (Sulfonamide Allergy Hives Verified 02/19/17 23:16 Antibiotics) Date of admission: 09/22/17 16:29 Primary care physician: Melida Santos CNP Consults: 09/22/17 16:43 Consult to Occupational Therapy [CONS] Routine Comment: Evaluate, develop and implement POC Reason for Consult: Deconditioning Consult to Physical Therapy [CONS] Routine Comment: Evaluate, develop and implement POC Reason for Consult: Deconditioning Consult to Recreational Therapy [CONS] Routine Comment: Evaluate, develop and implement POC Consult to Meeting Specialist [CONS] Routine Reason for SW Consult: Deconditioning Consult to Speech Therapy [CONS] Routine Comment: Evaluate, develop and implement POC Reason for Consult: speech impairment Call Completed: Yes 09/22/17 16:46 Consult to Psychology [CONS] Routine Consulting Provider: Shasha Moseley Reason for Consult: Past CVA Call Completed: No Discharging clinician: Garrett Woodward Anticipated date of discharge: 10/01/17 - Patient Status Disposition: Home Health Service Functional capacity at discharge: uses cane/walker Overall status at discharge: patient is progressing back to baseline - Discharge Instructions Follow Up With: Melida Santos CNP [Primary Care Provider] - - Diet and Activity Activity: ambulate only with your walker Diet: diabetic diet Hospital course: Ms. Richards is a 72 year old female Who was brought in to [facility] for deconditioning after recent hospitalization - Time Spent with Patient Total time spent providing and/or coordinating discharge services: Less than 30 minutes - Constitutional Vitals: Temp Pulse Resp BP Pulse Ox 98.3 F 63 18 166/76 97 09/30/17 07:00 09/30/17 07:00 09/30/17 07:00 09/30/17 07:00 09/30/17 07:00 General appearance: Present: A&O X 3, morbidly obese, pleasant, answers questions appropriately - Head Head exam: Present: atraumatic, normal inspection, normocephalic - Neck Neck exam general surgery: Present: supple, trachea midline. Absent: lymphadenopathy - Respiratory Respiratory exam: Present: CTAB. Absent: accessory muscle use, rales, rhonchi, wheezes - Cardiovascular Cardiovascular exam: Present: RRR, +S1, +S2. Absent: diastolic murmur, gallop, rubs, systolic murmur - GI/Abdominal GI/Abdominal exam: Present: normal bowel sounds, soft, no peritoneal signs. Absent: distended, tenderness
[2017-09-30] MEDS: Artificial Tears SOLN 15 ML BOTTLE BOTH EYES PRN (15:29)
[2017-09-30] MEDS: traZODone 50 MG TABLET PO SCH (20:33)
[2017-09-30] MEDS: Fenofibrate 54 MG TABLET PO SCH (20:33)
[2017-09-30] MEDS: Insulin DETEMIR 100 UNIT/ML X5UNITS SQ SCH (20:34)
[2017-10-01] MEDS: *HR* Enoxaparin 40 MG/0.4 ML SYRINGE SQ SCH (06:29)
[2017-10-01 07:37] VITALS: BP 133/56
[2017-10-01] MEDS: Famotidine 20 MG TABLET PO SCH (08:37)
[2017-10-01] MEDS: Gabapentin 400 MG CAPSULE PO SCH (08:37)
[2017-10-01] MEDS: BuPROPion SR (12 HR) 100 MG TABLET PO SCH (08:37)
[2017-10-01] MEDS: Ranolazine 500 MG TAB.ER.12H PO SCH (08:38)
[2017-10-01] MEDS: Cholecalciferol (D-3) 1,000 UNIT TABLET PO SCH (08:38)
[2017-10-01] MEDS: Insulin LISPRO 300 UNITS/3 ML VIAL SQ SCH ×2 (08:39→12:45)
[2017-10-01] MEDS: (Liraglutide [Victoza 2-Pak] 1.2 MG) SQ SCH (10:05)
--- NOTE | 2017-10-01 13:04 | Internal Med Progress Note ---
Date of Encounter: 10/01/17 Time of Encounter: 13:00 - Assessment and plan (1) Weakness Current Visit: No Status: Acute Assessment and plan: PT/OT. improving (2) CKD (chronic kidney disease) stage 3, GFR 30-59 ml/min Current Visit: Yes Status: Chronic Assessment and plan: No acute issues. We will continue with current medications. Will review most recent labs (3) Essential hypertension Current Visit: No Status: Chronic Assessment and plan: stable with current meds. (4) Hyperlipidemia Current Visit: No Status: Chronic Assessment and plan: continue fenofibrate Qualifiers: Hyperlipidemia type: mixed hyperlipidemia Qualified Code(s): E78.2 - Mixed hyperlipidemia (5) Diastolic CHF Current Visit: No Status: Chronic Qualifiers: Congestive heart failure chronicity: chronic Qualified Code(s): I50.32 - Chronic diastolic (congestive) heart failure (6) Type 2 diabetes mellitus Current Visit: No Status: Chronic Qualifiers: Diabetes mellitus complication status: with neurologic complications Diabetes mellitus complication detail: with polyneuropathy Diabetes mellitus long-term insulin use: with long-term use Qualified Code(s): E11.42 - Type 2 diabetes mellitus with diabetic polyneuropathy; Z79.4 - terminologist (current) use of insulin; Z79.4 - terminologist (current) use of insulin; Z79.4 - [facility] ( current) use of insulin; Z79.4 - [facility] (current) use of insulin (7) CVA (cerebral vascular accident) Current Visit: Yes Status: Acute Qualifiers: CVA mechanism: embolism Precerebral and cerebral artery: cerebellar artery Laterality of affected vessel: bilateral Qualified Code(s): 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 no new neuro deficits. denies vertigo, chest pain or any other issues at this time. has home health aide at home. will have home PT. - Constitutional Vitals: Temp Pulse Resp BP Pulse Ox 97.8 F 63 16 133/56 96 10/01/17 07:36 10/01/17 07:36 10/01/17 07:36 10/01/17 07:36 10/01/17 07:36 General appearance: Present: A&O X 3, morbidly obese, pleasant, answers questions appropriately - Head Head exam: Present: atraumatic, normocephalic - Eye Eye exam: Present: PERRL, conjuntiva pink, sclera anicteric Pupils: Present: PERRL - Neck Neck exam general surgery: Present: supple, trachea midline. Absent: lymphadenopathy - Respiratory Respiratory exam: Present: CTAB. Absent: accessory muscle use, rales, rhonchi, wheezes - Cardiovascular Cardiovascular exam: Present: RRR, +S1, +S2. Absent: diastolic murmur, gallop, rubs, systolic murmur - GI/Abdominal GI/Abdominal exam: Present: normal bowel sounds, soft, no peritoneal signs. Absent: distended, tenderness - Extremities Exam Extremities exam: Present: warm, radial pulses palpable and symmetrical. Absent : calf tenderness, cyanotic, pedal edema - Neurological Exam Neurological exam: Present: CN II-XII intact, oriented X3, no focal deficits. Absent: pronater drift, facial droop, speech deficit - Skin Skin exam: Present: dry, intact Internal Medicine: Result - Labs CBC & Chem 7: 09/28/17 06:05 09/28/17 06:05 - ABG Interpretation ABG results: PT/INR, D-dimer PT 11.7 Seconds (9.4-12.1) 09/23/17 05:15 Consult Discharge Plan - Plan Instructions: Ischemic Stroke (DC) Referrals: Melida Santos CNP [Primary Care Provider] - 10/06/17 10:15 am (follow up appointment please call to reschedule if needed)
--- NOTE | 2017-10-01 13:14 | Physician Discharge Referral ---
Home Health/Hosp Referral Info Transfer to: Home Health Provider in Charge Post Discharge: PCP - Diagnosis (1) Pneumonia Priority: Primary Status: Acute (2) CVA (cerebral vascular accident) Priority: Secondary Status: Acute (3) Recurrent falls Priority: Secondary Status: Acute (4) Diastolic CHF Priority: Secondary Status: Chronic (5) Type 2 diabetes mellitus Priority: Secondary Status: Chronic - Respiratory Orders Smoking Cessation: Smoking cessation has been advised. For more information, call the [place] Tobacco Quit Line at 5-405-MICZ-NOW. - Diet/Nutrition Diet/Nutrition Orders: No Concentrated Sweets - Activity Activity Orders: Up ad mayank - Services Needed Following services are medically necessary services: Nursing, Physical Therapy - Transfer Medications Home Medications: Cholecalciferol (Vitamin D3) [Vitamin D3] 50,000 unit PO FR 06/14/15 [History] Fenofibrate [Tricor] 48 mg PO HS 06/14/15 [History] Ranolazine [Ranexa] 1,000 mg PO BID 06/14/15 [History] Doxepin [Sinequan] 50 mg PO HS 03/21/16 [History] Insulin Glargine [Lantus] 90 unit SQ HS 03/21/16 [History] Insulin LISPRO [HumaLOG] 30 - 50 units SQ TIDWM 03/21/16 [History] Gabapentin [Neurontin] 400 mg PO TID 07/24/17 [History] HydrOXYzine 10 mg PO BID 07/24/17 [History] Liraglutide [Victoza 2-Pavel] 1.2 mg SQ DAILY 07/24/17 [History] Ranitidine HCl [Zantac] 300 mg PO DAILY 07/24/17 [History] buPROPion HCl [Bupropion HCl Sr] 200 mg PO DAILY 07/24/17 [History] Trazodone HCl 300 mg PO HS 08/31/17 [History] Lisinopril [Zestril] 10 mg PO DAILY tablet 09/05/17 [Rx] Metoprolol [Lopressor] 50 mg PO BID tablet 09/05/17 [Rx] Dicyclomine [Bentyl] 10 mg PO QID 09/19/17 [History] Allergies/Adverse Reactions: 3 Allergy/AdvReac Type Severity Reaction Status Date / Time Iodinated Contrast- Oral and Allergy Rash Verified 05/11/17 23:16 IV Dye iron Allergy Hives Verified 02/19/17 23:16 [place] Allergy Nausea Verified 02/19/17 23:16 Sulfa (Sulfonamide Allergy Hives Verified 02/19/17 23:16 Antibiotics) Certification: Further, I certify that my clinical findings support that this patient is homebound (i.e. absences from home require considerable and taxing effort and are for medical reasons or sabianism services or infrequently or short duration when for other reasons) because: Homebound Reason: Patient requires assistance of a person or device to safely leave home Attestation: My signature below is to certify that this patient is under my care and that I, or nurse practitioner, or a physician's ophthalmic surgical assistant working with me, has a face-to -face encounter with this patient.
== END 2017-10-01 14:48 | disposition home health service (06) | DRG 945 ==
LOC: INPGRE 09-22 16:29
PROVIDERS: ADMIT Internal Medicine; ATTEND Internal Medicine

== ENCOUNTER 2018-02-17 16:11 | Inpatient (IN) ==
[2018-02-17] MEDS ORDERED: D5% in Water 1,000 ML IVC PRN (16:54)
[2018-02-17] MEDS ORDERED: Dextrose Gel 15 GM/37.5 ML TUBE PO PRN ×2 (16:54)
[2018-02-17] MEDS ORDERED: *HR* Dextrose 50 % in Water (Syg) 50 ML SYRINGE IVP PRN (16:54)
[2018-02-17] MEDS: cloNIDine HCl 0.1 MG TABLET PO PRN (17:37)
[2018-02-17] MEDS ORDERED: Insulin DETEMIR 100 UNIT/ML per UNIT SQ ONE (21:00)
[2018-02-17] MEDS: Ranolazine 500 MG TAB.ER.12H PO SCH (21:59)
[2018-02-17] MEDS: traZODone 50 MG TABLET PO SCH (21:59)
[2018-02-17] MEDS: Fenofibrate 54 MG TABLET PO SCH (22:00)
[2018-02-17] MEDS: Acetaminophen 325 MG TABLET PO PRN (22:00)
[2018-02-17] MEDS: Gabapentin 400 MG CAPSULE PO SCH (22:01)
[2018-02-17] MEDS: Insulin LISPRO 300 UNITS/3 ML VIAL SQ SCH (22:03)
[2018-02-17] MEDS: Ondansetron ODT 4 MG TAB.RAPDIS SL PRN (23:11)
[2018-02-18 07:42] LABS: INR 1.2; Prothrombin Time 13.4 Seconds (9.4-12.1)
[2018-02-18 07:44] LABS: Basophils % 0.6 %; Eosinophils # 0.1 K/mcL (0.0-0.6); Eosinophils % 2.7 %; Hematocrit 30.3 % (35.3-44.9); Hemoglobin 10.1 g/dL (11.5-15.4); Immature Granulocytes % 0.2 % (0-4); Lymphocytes # 1.6 K/mcL (0.6-4.6); Lymphocytes % 33.3 %; Mean Corpuscular HGB Conc 33.3 g/dL (31.6-35.5); Mean Corpuscular Hemoglobin 28.9 pg (28.0-33.3); Mean Corpuscular Volume 86.6 fL (83.0-100.0); Mean Platelet Volume 10.2 fL (9.4-12.4); Monocytes # 0.5 K/mcL (0.0-1.3); Monocytes % 9.7 %; Neutrophils # 2.5 K/mcL (1.6-8.9); Platelet Count 249 K/mcL (140-400); Red Cell Distribution Width 14.3 % (11.5-14.5); Segmented Neutrophils % 53.5 %
[2018-02-18 07:45] LABS: Activated Partial Thrombo Time 30.8 Seconds (26.0-36.0)
[2018-02-18] MEDS: Insulin LISPRO 300 UNITS/3 ML VIAL SQ SCH ×4 (10:15→21:05)
[2018-02-18] MEDS: Acetaminophen 325 MG TABLET PO PRN ×2 (10:16→18:13)
[2018-02-18] MEDS: Famotidine 20 MG TABLET PO SCH (10:16)
[2018-02-18] MEDS: Gabapentin 400 MG CAPSULE PO SCH ×3 (10:16→21:06)
[2018-02-18] MEDS: Aspirin Enteric Coated 81 MG Tablet PO SCH (10:17)
[2018-02-18] MEDS: Ranolazine 500 MG TAB.ER.12H PO SCH ×2 (10:17→21:10)
[2018-02-18] MEDS: levoFLOXacin 750 MG TABLET PO SCH (10:17)
[2018-02-18] MEDS: Metoprolol XL (24 HR) Succ 25 MG TAB.ER.24H PO SCH (10:17)
[2018-02-18] MEDS: (Liraglutide [Victoza 2-Pak] 1.2 MG) SQ SCH (10:17)
[2018-02-18 12:13] LABS: BUN/Creatinine Ratio 10 (6-26); Blood Urea Nitrogen 9 mg/dL (8-23); Calcium 9.4 mg/dL (8.6-10.3); Carbon Dioxide 25 mEq/L (23-29); Chloride 106 mEq/L (98-107); Glucose 142 mg/dL (70-105); Osmolality,Calculated 291 (280-300); Potassium 3.7 mEq/L (3.5-5.1); Sodium 140 mEq/L (136-145); eGFR For African Americans > 60 (> 60); eGFR For Non-African Americans 59 (> 60)
--- NOTE | 2018-02-18 12:45 | Internal Med History&Physical ---
Date of Encounter: 02/18/18 Time of Encounter: 12:43 Assessment and Plan (1) Urinary tract infection Current visit: No Status: Acute No acute issues. Patient remains afebrile and denies any dysuria or frequency. Continue on current ATB. Patient continues with generalized weakness. PT/OT evaluation pending and recs. Qualifiers: Urinary tract infection type: acute cystitis Hematuria presence: without hematuria Qualified Code(s): N30.00 - Acute cystitis without hematuria (2) Physical deconditioning Current visit: No Status: Acute Patient continues to have generalized weakness due to deconditioning. Patient has recent history of falls at home and continues with an unsteady gait and remains a risk for falls. Patient being evaluated by physical therapy with recommendations pending (3) Acute kidney injury superimposed on chronic kidney disease Current visit: No Status: Acute No acute issues. Cr 0.94. Will continue on current meds and follow status on serial labs. (4) Type 2 diabetes mellitus Current visit: No Status: Chronic Patient's glucose remains elevated greater than 200 on fingersticks. We will continue with sliding scale coverage and we will review the patient's current scheduled coverage. We will obtain a hemoglobin A1c Qualifiers: Diabetes mellitus jail insulin use: with regional intermodal truck driver use Diabetes mellitus complication status: with kidney complications Diabetes mellitus complication detail: with chronic kidney disease Chronic kidney disease stage : stage 3 (moderate) Qualified Code(s): E11.22 - Type 2 diabetes mellitus with diabetic chronic kidney disease; N18.3 - Chronic kidney disease, stage 3 ( moderate); N18.3 - Chronic kidney disease, stage 3 (moderate); Z79.4 - [facility] (current) use of insulin; Z79.4 - [facility] (current) use of insulin; Z79.4 - [facility] (current) use of insulin; Z79.4 - ad terminal makeup operator (current) use of insulin (5) COPD (chronic obstructive pulmonary disease) Current visit: No Status: Chronic Patient appears relaxed and currently denies any discomforts. Lungs have diminished breath sounds in bases but otherwise are clear to auscultation. Continue with current medications and bronchodilators. Qualifiers: COPD type: emphysema Emphysema type: centrilobular Qualified Code(s): J43.2 - Centrilobular emphysema Internal Medicine - H&P: HPI Chief complaint: UTI Admitted From: Intrahospital Transfer Plans for Post Hospital Care: Home History of present illness: Ms. Richards is a 72 year old female, who presented to the ER for nausea and generalized weakness and found to have UTI. Further workup showed rhabdomyolysis with worsening renal function, UTI. Patient recovered well during hospitalization and was transferred to [place] for further rehabilitation due to deconditioning. Patient continues on antibiotics for her UTI this time. Patient currently denies any discomforts or shortness of breath. Denies any dysuria or frequency. Afebrile. Past Med Surg Social Fam HX - Past Medical History Medical history: asthma, cancer, CHF, coronary artery disease, CVA, diabetes, fibromyalgia, GERD, hyperlipidemia, hypertension, myocardial infarction, osteoporosis, renal disease, syncope, other Psychiatric history: anxiety, bipolar, depression - Past Surgical History Surgical History: angioplasty/stent, appendectomy, cancer surgery, cholecystectomy, hysterectomy, orthopedic, other - Social History Smoking Status: Former smoker Smokeless Tobacco Status: No Alcohol use: none Drug use: none - Family History Mother Living Status: Sister Living Status: Hx Family Cardiac Disorders: Yes Hx Family Respiratory Disorders: Yes (Lung cancer) Brother Adopted: [place]: [place] Family Member Ethnicity: Non- Living Status: Still Living Hx Family Cardiac Disorders: Yes Hx Family Respiratory Disorders: Yes Hx Family Cancer: Yes Hx Family GI Disorders: No Hx Family Endocrine Disorder: No Hx Family Neuromuscular Disorders: No Hx Family Neurologic Disorders: No Hx Family HEENT Disorders: No Hx Family Autoimmune Disorders: No Father Adopted: No Family Member Ethnicity: Non- Living Status: Hx Family Cardiac Disorders: Yes Hx Family Respiratory Disorders: No Hx Family Cancer: No Hx Family GI Disorders: No Hx Family Endocrine Disorder: No Hx Family Neuromuscular Disorders: No Hx Family Neurologic Disorders: No Hx Family HEENT Disorders: No Hx Family Autoimmune Disorders: No Internal Medicine - H&P: Meds Cholecalciferol (Vitamin D3) [Vitamin D3] 50,000 unit PO FR 06/14/15 [History] Fenofibrate [Tricor] 48 mg PO HS 06/14/15 [History] Ranolazine [Ranexa] 1,000 mg PO BID 06/14/15 [History] Doxepin [Sinequan] 50 mg PO HS 03/21/16 [History] Insulin Glargine [Lantus] 90 unit SQ HS 03/21/16 [History] Insulin LISPRO [HumaLOG] 30 - 50 units SQ TIDWM 03/21/16 [History] Gabapentin [Neurontin] 400 mg PO TID 07/24/17 [History] HydrOXYzine 10 mg PO BID 07/24/17 [History] Liraglutide [Victoza 2-Pavel] 1.2 mg SQ DAILY 07/24/17 [History] Ranitidine HCl [Zantac] 300 mg PO DAILY 07/24/17 [History] buPROPion HCl [Bupropion HCl Sr] 200 mg PO DAILY 07/24/17 [History] Trazodone HCl 300 mg PO HS 08/31/17 [History] Lisinopril [Zestril] 10 mg PO DAILY tablet 09/05/17 [Rx] Dicyclomine [Bentyl] 10 mg PO QID 09/19/17 [History] Acetaminophen [Tylenol] 650 mg PO Q6HR PRN #16 tablet 01/02/18 [Rx] Atorvastatin Calcium [Lipitor] 80 mg PO HS 02/14/18 [History] Cyclobenzaprine [Flexeril] 10 mg PO BID 02/14/18 [History] Montelukast [Singulair] 10 mg PO DAILY 02/14/18 [History] Pantoprazole Sodium [Protonix] 40 mg PO DAILY 02/14/18 [History] Aspirin Enteric Coated [Aspirin EC] 81 mg PO DAILY tablet. 02/17/18 [Rx] Loratadine [Claritin] 10 mg PO DAILY tablet 02/17/18 [Rx] Metoprolol XL (24 HR) Succ [Toprol Xl] 12.5 mg PO DAILY tab.er.24h 02/17/18 [Rx ] levoFLOXacin [Levaquin] 750 mg PO DAILY 7 Days #7 tablet 02/17/18 [Rx] 3 Allergy/AdvReac Type Severity Reaction Status Date / Time Iodinated Contrast- Oral and Allergy Rash Verified 02/13/18 21:15 IV Dye iron Allergy Hives Verified 02/13/18 21:15 [place] Allergy Nausea Verified 02/13/18 21:15 Sulfa (Sulfonamide Allergy Hives Verified 02/13/18 21:15 Antibiotics) All Systems PM: A 10-system review of systems was performed and is negative for pertinent findings except as documented above in the HPI. - Constitutional Constitutional: as per HPI, no chills, no fever(s), no night sweats - EENT Eyes: no change in vision, no discharge, no pain, no photophobia Ears: no ear discharge, no ear pain, no tinnitus Nose, mouth and throat: no dysphagia, no nasal discharge, no neck pain, no sore throat - Cardiovascular Cardiovascular ROS IM: as per HPI, no chest pain, no diaphoresis, no dyspnea, no lightheadedness, no palpitations, no syncope - Respiratory Respiratory: as per HPI, no cough, no dyspnea, no wheezing, no excessive phlegm production - Gastrointestinal Gastrointestinal: no abdominal pain, no diarrhea, no hematemesis, no hematochezia, no melena, no nausea, no vomiting - Genitourinary Genitourinary: as per HPI, no change in urinary stream, no dysuria, no flank pain, no hematuria - Musculoskeletal Musculoskeletal ROS IM: no numbness, no tingling - Integumentary Integumentary IM: no rash, no unusual bruising - Neurological Neurological ROS: no confusion, no convulsions, no focal weakness, no numbness, no tingling, no tremor(s) - Hematologic/Lymphatic Hematologic/Lymphatic: no easy bruising - Constitutional Vitals: Temp Pulse Resp BP Pulse Ox 98.9 F 90 16 124/70 95 02/18/18 11:25 02/18/18 11:25 02/18/18 11:25 02/18/18 11:25 02/18/18 11:25 General appearance: Present: A&O X 3 - Head Head exam: Present: atraumatic, normocephalic - Eye Eye exam: Present: PERRL, conjuntiva pink, sclera anicteric Pupils: Present: PERRL - Neck Neck exam general surgery: Present: supple, trachea midline. Absent: lymphadenopathy - Respiratory Respiratory exam: Present: CTAB. Absent: accessory muscle use, rales, rhonchi, wheezes Additional comments: diminished bases, otherwise CTA. RR effort relaxed. - Cardiovascular Cardiovascular exam: Present: RRR, +S1, +S2. Absent: diastolic murmur, gallop, rubs, systolic murmur - GI/Abdominal GI/Abdominal exam: Present: normal bowel sounds, soft, no peritoneal signs. Absent: distended, tenderness - Extremities Exam Extremities exam: Present: warm, radial pulses palpable and symmetrical. Absent : calf tenderness, cyanotic, pedal edema - Neurological Exam Neurological exam: Present: CN II-XII intact, oriented X3, no focal deficits. Absent: pronater drift, facial droop, speech deficit - Skin Skin exam: Present: dry, intact Internal Med - H&P Results - Labs CBC & Chem 7: 02/18/18 06:54 02/18/18 06:54 Labs: Short CBC 02/18/18 Range/Units 06:54 WBC 4.7 (4.3-11.1) K/mcL Hgb 10.1 L (11.5-15.4) g/dL Hct 30.3 L (35.3-44.9) % Plt Count 249 (140-400) K/mcL Neutrophils # 2.5 (1.6-8.9) K/mcL BMP 02/18/18 06:54 Sodium 140 Potassium 3.7 Chloride 106 Carbon Dioxide 25 BUN 9 Creatinine 0.94 Glucose 142 H Calcium 9.4 - VTE Documentation of Mechanical Device: Graduated compression elastic hosiery
[2018-02-18] MEDS: Insulin DETEMIR 100 UNIT/ML X5UNITS SQ SCH (21:05)
[2018-02-18] MEDS: Fenofibrate 54 MG TABLET PO SCH (21:06)
[2018-02-18] MEDS: traZODone 50 MG TABLET PO SCH (21:09)
[2018-02-19] MEDS: Aspirin Enteric Coated 81 MG Tablet PO SCH (08:19)
[2018-02-19] MEDS: Ranolazine 500 MG TAB.ER.12H PO SCH ×2 (08:19→22:15)
[2018-02-19] MEDS: Gabapentin 400 MG CAPSULE PO SCH ×3 (08:19→22:11)
[2018-02-19] MEDS: levoFLOXacin 750 MG TABLET PO SCH (08:19)
[2018-02-19] MEDS: Metoprolol XL (24 HR) Succ 25 MG TAB.ER.24H PO SCH (08:19)
[2018-02-19] MEDS: Famotidine 20 MG TABLET PO SCH (08:20)
[2018-02-19] MEDS: Insulin LISPRO 300 UNITS/3 ML VIAL SQ SCH ×4 (08:20→22:04)
[2018-02-19] MEDS: (Liraglutide [Victoza 2-Pak] 1.2 MG) SQ SCH (08:20)
--- NOTE | 2018-02-19 10:12 | Internal Med Progress Note ---
Date of Encounter: 02/19/18 Time of Encounter: 10:07 - Assessment and plan (1) Urinary tract infection Current Visit: Yes Status: Acute Assessment and plan: Continue on Levaquin. Continued slight dysuria. Afebrile. Qualifiers: Urinary tract infection type: acute cystitis Hematuria presence: without hematuria Qualified Code(s): N30.00 - Acute cystitis without hematuria (2) Physical deconditioning Current Visit: Yes Status: Acute Assessment and plan: Continued generalized weakness. Progressing well with physical therapy. (3) Acute kidney injury superimposed on chronic kidney disease Current Visit: No Status: Acute Assessment and plan: No acute issues. Cr 0.94. Will continue to monitor with serial labs. (4) Type 2 diabetes mellitus Current Visit: No Status: Chronic Assessment and plan: No aucte issues. Patient's fingersticks have been less than 150 with coverage per sliding scale. We will continue with current long-term coverage. Qualifiers: Diabetes mellitus termite technician insulin use: with termite technician use Diabetes mellitus complication status: with kidney complications Diabetes mellitus complication detail: with chronic kidney disease Chronic kidney disease stage : stage 3 (moderate) Qualified Code(s): E11.22 - Type 2 diabetes mellitus with diabetic chronic kidney disease; N18.3 - Chronic kidney disease, stage 3 ( moderate); N18.3 - Chronic kidney disease, stage 3 (moderate); Z79.4 - residential (current) use of insulin; Z79.4 - residential (current) use of insulin; Z79.4 - residential (current) use of insulin; Z79.4 - residential (current) use of insulin (5) COPD (chronic obstructive pulmonary disease) Current Visit: No Status: Chronic Assessment and plan: No acute issues. Lungs remain clear to auscultation. Patient denies any productive cough or dyspnea. We will continue on current medications and bronchodilators Qualifiers: COPD type: emphysema Emphysema type: centrilobular Qualified Code(s): J43.2 - Centrilobular emphysema - Time Spent With Patient less than 15 minutes - Subjective Interval history: Patient appears relaxed and currently denies any discomforts or dyspnea. States that she continues to have mild dysuria. Denies any fever/chills. - Constitutional Vitals: Temp Pulse Resp BP Pulse Ox 98.3 F 77 15 155/61 94 02/19/18 07:20 05/11/18 07:20 02/19/18 07:20 02/19/18 07:20 02/19/18 07:20 General appearance: Present: A&O X 3 - Head Head exam: Present: atraumatic, normocephalic - Eye Eye exam: Present: PERRL, conjuntiva pink, sclera anicteric Pupils: Present: PERRL - Neck Neck exam general surgery: Present: supple, trachea midline. Absent: lymphadenopathy - Respiratory Respiratory exam: Present: CTAB. Absent: accessory muscle use, rales, rhonchi, wheezes Additional comments: diminished to bases, otherwise CTA. Resp effort relaxed. - Cardiovascular Cardiovascular exam: Present: RRR, +S1, +S2. Absent: diastolic murmur, gallop, rubs, systolic murmur - GI/Abdominal GI/Abdominal exam: Present: normal bowel sounds, soft, no peritoneal signs. Absent: distended, tenderness - Extremities Exam Extremities exam: Present: warm, radial pulses palpable and symmetrical. Absent : calf tenderness, cyanotic, pedal edema - Neurological Exam Neurological exam: Present: CN II-XII intact, oriented X3, no focal deficits. Absent: pronater drift, facial droop, speech deficit - Skin Skin exam: Present: dry, intact Internal Medicine: Result - Labs CBC & Chem 7: 02/18/18 06:54 02/18/18 06:54 Labs: BMP 02/18/18 06:54 Sodium 140 Potassium 3.7 Chloride 106 Carbon Dioxide 25 BUN 9 Creatinine 0.94 Glucose 142 H Calcium 9.4 - ABG Interpretation ABG results: PT/INR, D-dimer PT 13.4 Seconds (9.4-12.1) H 02/18/18 06:54 - VTE Documentation of Mechanical Device: Graduated compression elastic hosiery Consult Discharge Plan - Plan Referrals: Melida Santos CNP [Primary Care Provider] -
[2018-02-19] MEDS: Insulin DETEMIR 100 UNIT/ML X5UNITS SQ SCH (22:05)
[2018-02-19] MEDS: Fenofibrate 54 MG TABLET PO SCH (22:10)
[2018-02-19] MEDS: traZODone 50 MG TABLET PO SCH (22:12)
[2018-02-19] MEDS: Acetaminophen 325 MG TABLET PO PRN (22:30)
[2018-02-20] MEDS: Aspirin Enteric Coated 81 MG Tablet PO SCH (09:50)
[2018-02-20] MEDS: Gabapentin 400 MG CAPSULE PO SCH ×3 (09:50→20:24)
[2018-02-20] MEDS: levoFLOXacin 750 MG TABLET PO SCH (09:50)
[2018-02-20] MEDS: Ranolazine 500 MG TAB.ER.12H PO SCH ×2 (09:50→20:24)
[2018-02-20] MEDS: Famotidine 20 MG TABLET PO SCH (09:50)
[2018-02-20] MEDS: Metoprolol XL (24 HR) Succ 25 MG TAB.ER.24H PO SCH (09:51)
[2018-02-20] MEDS: Insulin LISPRO 300 UNITS/3 ML VIAL SQ SCH ×4 (09:51→20:12)
[2018-02-20] MEDS: (Liraglutide [Victoza 2-Pak] 1.2 MG) SQ SCH (09:58)
[2018-02-20] MEDS: Acetaminophen 325 MG TABLET PO PRN ×2 (12:54→20:24)
[2018-02-20] MEDS: Insulin DETEMIR 100 UNIT/ML X5UNITS SQ SCH (20:23)
[2018-02-20] MEDS: traZODone 50 MG TABLET PO SCH (20:23)
[2018-02-20] MEDS: Fenofibrate 54 MG TABLET PO SCH (20:24)
[2018-02-20] MEDS: cloNIDine HCl 0.1 MG TABLET PO PRN (20:34)
[2018-02-21] MEDS: Insulin LISPRO 300 UNITS/3 ML VIAL SQ SCH ×4 (08:13→20:30)
[2018-02-21] MEDS: Ranolazine 500 MG TAB.ER.12H PO SCH ×2 (08:19→20:31)
[2018-02-21] MEDS: Aspirin Enteric Coated 81 MG Tablet PO SCH (08:20)
[2018-02-21] MEDS: levoFLOXacin 750 MG TABLET PO SCH (08:20)
[2018-02-21] MEDS: Metoprolol XL (24 HR) Succ 25 MG TAB.ER.24H PO SCH (08:20)
[2018-02-21] MEDS: Gabapentin 400 MG CAPSULE PO SCH ×3 (08:20→20:31)
[2018-02-21] MEDS: Famotidine 20 MG TABLET PO SCH (08:20)
[2018-02-21] MEDS: (Liraglutide [Victoza 2-Pak] 1.2 MG) SQ SCH (08:23)
[2018-02-21] MEDS: Acetaminophen 325 MG TABLET PO PRN ×2 (15:10→20:32)
[2018-02-21] MEDS: Ondansetron ODT 4 MG TAB.RAPDIS SL PRN (20:31)
[2018-02-21] MEDS: Fenofibrate 54 MG TABLET PO SCH (20:31)
[2018-02-21] MEDS: Insulin DETEMIR 100 UNIT/ML X5UNITS SQ SCH (20:31)
[2018-02-21] MEDS: traZODone 50 MG TABLET PO SCH (20:32)
[2018-02-22 06:03] LABS: Basophils % 0.3 %; Eosinophils # 0.2 K/mcL (0.0-0.6); Eosinophils % 3.3 %; Hematocrit 31.7 % (35.3-44.9); Hemoglobin 10.2 g/dL (11.5-15.4); Immature Granulocytes % 0.5 % (0-4); Lymphocytes # 2.5 K/mcL (0.6-4.6); Lymphocytes % 43.2 %; Mean Corpuscular HGB Conc 32.2 g/dL (31.6-35.5); Mean Corpuscular Hemoglobin 28.7 pg (28.0-33.3); Mean Platelet Volume 9.8 fL (9.4-12.4); Monocytes # 0.7 K/mcL (0.0-1.3); Monocytes % 11.8 %; Neutrophils # 2.4 K/mcL (1.6-8.9); Platelet Count 301 K/mcL (140-400); Red Blood Count 3.56 M/mcL (3.82-4.97); Red Cell Distribution Width 14.6 % (11.5-14.5); Segmented Neutrophils % 40.9 %
[2018-02-22 06:20] LABS: Calcium 10.3 mg/dL (8.6-10.3); Potassium 4.5 mEq/L (3.5-5.1)
[2018-02-22] MEDS: Metoprolol XL (24 HR) Succ 25 MG TAB.ER.24H PO SCH (08:02)
[2018-02-22] MEDS: Acetaminophen 325 MG TABLET PO PRN ×2 (08:02→20:18)
[2018-02-22] MEDS: Famotidine 20 MG TABLET PO SCH (08:02)
[2018-02-22] MEDS: levoFLOXacin 750 MG TABLET PO SCH (08:02)
[2018-02-22] MEDS: Gabapentin 400 MG CAPSULE PO SCH ×3 (08:02→20:18)
[2018-02-22] MEDS: Aspirin Enteric Coated 81 MG Tablet PO SCH (08:03)
[2018-02-22] MEDS: Insulin LISPRO 300 UNITS/3 ML VIAL SQ SCH ×4 (08:05→20:25)
[2018-02-22] MEDS: Ranolazine 500 MG TAB.ER.12H PO SCH ×2 (09:00→20:18)
--- NOTE | 2018-02-22 10:33 | Internal Med Progress Note ---
Date of Encounter: 02/22/18 Time of Encounter: 10:31 - Assessment and plan (1) Physical deconditioning Current Visit: Yes Status: Acute Assessment and plan: Continue PT\OT. Will follow progress. (2) Acute kidney injury superimposed on chronic kidney disease Current Visit: No Status: Acute Assessment and plan: Creatinine 1.26 today. Encourage PO fluids. Repeat BMP in the morning (3) Type 2 diabetes mellitus Current Visit: No Status: Chronic Assessment and plan: Controlled with current medication. Continue to monitor fingerstick blood sugar. Will adjust medicines as necessary. Qualifiers: Diabetes mellitus terminal worker insulin use: with longterm use Diabetes mellitus complication status: with kidney complications Diabetes mellitus complication detail: with chronic kidney disease Chronic kidney disease stage : stage 3 (moderate) Qualified Code(s): E11.22 - Type 2 diabetes mellitus with diabetic chronic kidney disease; N18.3 - Chronic kidney disease, stage 3 ( moderate); N18.3 - Chronic kidney disease, stage 3 (moderate); Z79.4 - long-term (current) use of insulin; Z79.4 - long-term (current) use of insulin; Z79.4 - terminal worker (current) use of insulin; Z79.4 - long-term (current) use of insulin (4) COPD (chronic obstructive pulmonary disease) Current Visit: No Status: Chronic Assessment and plan: Controlled. Continue current meds Qualifiers: COPD type: emphysema Emphysema type: centrilobular Qualified Code(s): J43.2 - Centrilobular emphysema - Time Spent With Patient 25 - 35 minutes - Subjective Interval history: Participating well with therapy. Denies any complaints. No nausea, vomiting, diarrhea, fever, chills. Maintaining appetite and hydration. Discussed increasing PO fluids. Last bowel movement was yesterday. - Constitutional Vitals: Temp Pulse Resp BP Pulse Ox 97.9 F 77 18 101/53 93 02/22/18 07:27 02/22/18 07:27 02/22/18 07:27 02/22/18 07:27 02/22/18 07:27 General appearance: Present: A&O X 3, pleasant, no acute distress, obese, answers questions appropriately - Head Head exam: Present: atraumatic, normocephalic - Eye Eye exam: Present: PERRL, conjuntiva pink, sclera anicteric Pupils: Present: PERRL - Neck Neck exam general surgery: Present: supple, trachea midline. Absent: lymphadenopathy - Respiratory Respiratory exam: Present: CTAB. Absent: accessory muscle use, rales, rhonchi, wheezes - Cardiovascular Cardiovascular exam: Present: RRR, +S1, +S2. Absent: diastolic murmur, gallop, rubs, systolic murmur - GI/Abdominal GI/Abdominal exam: Present: normal bowel sounds, soft, no peritoneal signs. Absent: distended, tenderness - Extremities Exam Extremities exam: Present: warm, radial pulses palpable and symmetrical. Absent : calf tenderness, cyanotic, pedal edema - Neurological Exam Neurological exam: Present: CN II-XII intact, oriented X3, no focal deficits. Absent: pronater drift, facial droop, speech deficit - Skin Skin exam: Present: dry, intact Internal Medicine: Result - Labs CBC & Chem 7: 02/22/18 05:50 02/22/18 05:50 Labs: Short CBC 02/22/18 Range/Units 05:50 WBC 5.8 (4.3-11.1) K/mcL Hgb 10.2 L (11.5-15.4) g/dL Hct 31.7 L (35.3-44.9) % Plt Count 301 (140-400) K/mcL Neutrophils # 2.4 (1.6-8.9) K/mcL BMP 02/22/18 05:50 Sodium 139 Potassium 4.5 Chloride 103 Carbon Dioxide 32 H BUN 12 Creatinine 1.26 H Glucose 108 H Calcium 10.3 - ABG Interpretation ABG results: PT/INR, D-dimer PT 13.4 Seconds (9.4-12.1) H 02/18/18 06:54 - VTE Documentation of Mechanical Device: Graduated compression elastic hosiery Consult Discharge Plan - Plan Referrals: Melida Santos, SAFETY INTERN [Primary Care Provider] -
[2018-02-22] MEDS: (Liraglutide [Victoza 2-Pak] 1.2 MG) SQ SCH (11:50)
[2018-02-22] MEDS: traZODone 50 MG TABLET PO SCH (20:17)
[2018-02-22] MEDS: Fenofibrate 54 MG TABLET PO SCH (20:18)
[2018-02-22] MEDS: Ondansetron ODT 4 MG TAB.RAPDIS SL PRN (20:18)
[2018-02-22] MEDS: Insulin DETEMIR 100 UNIT/ML X5UNITS SQ SCH (20:22)
[2018-02-23 07:33] VITALS: BP 121/68
[2018-02-23] MEDS: Insulin LISPRO 300 UNITS/3 ML VIAL SQ SCH ×2 (08:06→11:47)
[2018-02-23] MEDS: Ranolazine 500 MG TAB.ER.12H PO SCH (08:14)
[2018-02-23] MEDS: Metoprolol XL (24 HR) Succ 25 MG TAB.ER.24H PO SCH (08:14)
[2018-02-23] MEDS: levoFLOXacin 750 MG TABLET PO SCH (08:14)
[2018-02-23] MEDS: Gabapentin 400 MG CAPSULE PO SCH ×2 (08:15→16:17)
[2018-02-23] MEDS: Famotidine 20 MG TABLET PO SCH (08:15)
[2018-02-23] MEDS: (Liraglutide [Victoza 2-Pak] 1.2 MG) SQ SCH (08:15)
[2018-02-23] MEDS: Aspirin Enteric Coated 81 MG Tablet PO SCH (08:15)
--- NOTE | 2018-02-23 12:03 | Discharge Summary ---
Orders not resulted at time of discharge: Pending orders 03/01/18 04:00 BMP [Basic Metabolic Panel] MO CBC [Complete Blood Count] [HEME] MO 03/08/18 04:00 BMP [Basic Metabolic Panel] MO CBC [Complete Blood Count] [HEME] MO 03/15/18 04:00 BMP [Basic Metabolic Panel] MO CBC [Complete Blood Count] [HEME] MO 03/22/18 04:00 BMP [Basic Metabolic Panel] MO CBC [Complete Blood Count] [HEME] MO 03/29/18 04:00 BMP [Basic Metabolic Panel] MO CBC [Complete Blood Count] [HEME] MO 04/05/18 04:00 BMP [Basic Metabolic Panel] MO CBC [Complete Blood Count] [HEME] MO 04/12/18 04:00 BMP [Basic Metabolic Panel] MO CBC [Complete Blood Count] [HEME] MO 04/19/18 04:00 BMP [Basic Metabolic Panel] MO CBC [Complete Blood Count] [HEME] MO 04/26/18 04:00 BMP [Basic Metabolic Panel] MO CBC [Complete Blood Count] [HEME] MO Date of Encounter: 02/23/18 Time of Encounter: 12:01 - Discharge Diagnosis (1) Physical deconditioning Priority: Primary Status: Acute Comments: discharging to home, improved strength. f/u with PCP. (2) Acute kidney injury superimposed on chronic kidney disease Priority: Primary Status: Acute Comments: stable . F/U with PCP. (3) Type 2 diabetes mellitus Priority: Secondary Status: Chronic Comments: continue current meds. monitor glucose levels. f/u with PCP. Qualifiers: Diabetes mellitus terminal superintendent insulin use: with terminal superintendent use Diabetes mellitus complication status: with kidney complications Diabetes mellitus complication detail: with chronic kidney disease Chronic kidney disease stage : stage 3 (moderate) Qualified Code(s): E11.22 - Type 2 diabetes mellitus with diabetic chronic kidney disease; N18.3 - Chronic kidney disease, stage 3 ( moderate); N18.3 - Chronic kidney disease, stage 3 (moderate); Z79.4 - termite treater helper (current) use of insulin; Z79.4 - group home (current) use of insulin; Z79.4 - termite treater helper (current) use of insulin; Z79.4 - group home (current) use of insulin (4) COPD (chronic obstructive pulmonary disease) Priority: Secondary Status: Chronic Comments: stable. continue current meds. f/u with PCP. Qualifiers: COPD type: emphysema Emphysema type: centrilobular Qualified Code(s): J43.2 - Centrilobular emphysema Hospital course: Ms. Richards is a 72 year old female Discharge discussed with: patient, nurse - Time Spent with Patient Total time spent providing and/or coordinating discharge services: Less than 30 minutes - Discharge Medications Home Medications: Cholecalciferol (Vitamin D3) [Vitamin D3] 50,000 unit PO FR 06/14/15 [History] Fenofibrate [Tricor] 48 mg PO HS 06/14/15 [History] Ranolazine [Ranexa] 1,000 mg PO BID 06/14/15 [History] Doxepin [Sinequan] 50 mg PO HS 03/21/16 [History] Insulin Glargine [Lantus] 90 unit SQ HS 03/21/16 [History] Insulin LISPRO [HumaLOG] 30 - 50 units SQ TIDWM 03/21/16 [History] Gabapentin [Neurontin] 400 mg PO TID 07/24/17 [History] HydrOXYzine 10 mg PO BID 07/24/17 [History] Liraglutide [Victoza 2-Pavel] 1.2 mg SQ DAILY 07/24/17 [History] Ranitidine HCl [Zantac] 300 mg PO DAILY 07/24/17 [History] buPROPion HCl [Bupropion HCl Sr] 200 mg PO DAILY 07/24/17 [History] Trazodone HCl 300 mg PO HS 08/31/17 [History] Lisinopril [Zestril] 10 mg PO DAILY tablet 09/05/17 [Rx] Dicyclomine [Bentyl] 10 mg PO QID 09/19/17 [History] Acetaminophen [Tylenol] 650 mg PO Q6HR PRN #16 tablet 01/02/18 [Rx] Atorvastatin Calcium [Lipitor] 80 mg PO HS 02/14/18 [History] Cyclobenzaprine [Flexeril] 10 mg PO BID 02/14/18 [History] Montelukast [Singulair] 10 mg PO DAILY 02/14/18 [History] Pantoprazole Sodium [Protonix] 40 mg PO DAILY 02/14/18 [History] Aspirin Enteric Coated [Aspirin EC] 81 mg PO DAILY tablet. 02/17/18 [Rx] Loratadine [Claritin] 10 mg PO DAILY tablet 02/17/18 [Rx] Metoprolol XL (24 HR) Succ [Toprol Xl] 12.5 mg PO DAILY tab.er.24h 02/17/18 [Rx ] levoFLOXacin [Levaquin] 750 mg PO DAILY 7 Days #7 tablet 02/17/18 [Rx] Allergies/Adverse Reactions: 3 Allergy/AdvReac Type Severity Reaction Status Date / Time Iodinated Contrast- Oral and Allergy Rash Verified 02/13/18 21:15 IV Dye iron Allergy Hives Verified 02/13/18 21:15 [place] Allergy Nausea Verified 02/13/18 21:15 Sulfa (Sulfonamide Allergy Hives Verified 02/13/18 21:15 Antibiotics) Date of admission: 02/17/18 16:11 Primary care physician: Melida Santos CNP Consults: 02/17/18 16:57 Consult to Occupational Therapy [CONS] Routine Comment: eval and treat Reason for Consult: decondtioning Does patient have active BEDREST order?: No Is patient medically & hemodynamically stable?: Yes Patient assessed for mobility or mobilized this visit?: Yes Consult to Physical Therapy [CONS] Routine Comment: eval and treat Reason for Consult: deconditioning Does patient have active BEDREST order?: No Is patient medically & hemodynamically stable?: Yes Patient assessed for mobility or mobilized this visit?: Yes Consult to Recreational Therapy [CONS] Routine Comment: Consult to Help Desk Support [CONS] Routine Reason for SW Consult: discharge planning Discharging clinician: Giancarlo Harkins Anticipated date of discharge: 02/23/18 - Constitutional Vitals: Temp Pulse Resp BP Pulse Ox 98.2 F 74 18 121/68 95 02/23/18 07:32 02/23/18 07:32 02/23/18 07:32 02/23/18 07:32 02/23/18 07:32 General appearance: Present: A&O X 3, pleasant, no acute distress, obese, answers questions appropriately - Head Head exam: Present: atraumatic, normocephalic - Eye Eye exam: Present: PERRL, conjuntiva pink, sclera anicteric Pupils: Present: PERRL - Neck Neck exam general surgery: Present: supple, trachea midline. Absent: lymphadenopathy - Respiratory Respiratory exam: Present: CTAB. Absent: accessory muscle use, rales, rhonchi, wheezes - Cardiovascular Cardiovascular exam: Present: RRR, +S1, +S2. Absent: diastolic murmur, gallop, rubs, systolic murmur - GI/Abdominal GI/Abdominal exam: Present: normal bowel sounds, soft, no peritoneal signs. Absent: distended, tenderness - Extremities Exam Extremities exam: Present: warm, radial pulses palpable and symmetrical. Absent : calf tenderness, cyanotic, pedal edema - Neurological Exam Neurological exam: Present: CN II-XII intact, oriented X3, no focal deficits. Absent: pronater drift, facial droop, speech deficit - Skin Skin exam: Present: dry, intact - Patient Status Disposition: Home, Self-Care Condition: Good Functional capacity at discharge: uses cane/walker Overall status at discharge: patient is progressing back to baseline - Discharge Instructions Follow Up With: Melida Santos LIVE HANGER [Primary Care Provider] - (pt states has upcoming appoint ) - Diet and Activity Activity: ambulate only with your walker, increase activity as tolerated Diet: advance to your usual diet - VTE Documentation of Mechanical Device: Graduated compression elastic hosiery
--- NOTE | 2018-02-23 13:13 | Internal Med Progress Note ---
Date of Encounter: 02/20/18 Time of Encounter: 11:30 - Assessment and plan (1) Urinary tract infection Current Visit: Yes Status: Acute Assessment and plan: We will continue current regimen and follow. She seems to be improving, certainly in terms of her general strength, etc. Qualifiers: Urinary tract infection type: site unspecified Qualified Code(s): N39.0 - Urinary tract infection, site not specified; R31.9 - Hematuria, unspecified (2) Physical deconditioning Current Visit: Yes Status: Acute Assessment and plan: She continues physical therapy and occupational therapy as planned. Home-going soon. (3) Acute kidney injury superimposed on chronic kidney disease Current Visit: No Status: Acute Assessment and plan: This is apparently stable. We will await obtaining basic metabolic panel, soon. (4) Type 2 diabetes mellitus Current Visit: No Status: Chronic Assessment and plan: We will continue home regimen and sliding scale insulin coverage, here. Qualifiers: Diabetes mellitus usp insulin use: with usp use Diabetes mellitus complication status: with kidney complications Diabetes mellitus complication detail: with chronic kidney disease Chronic kidney disease stage : stage 3 (moderate) Qualified Code(s): E11.22 - Type 2 diabetes mellitus with diabetic chronic kidney disease; N18.3 - Chronic kidney disease, stage 3 ( moderate); N18.3 - Chronic kidney disease, stage 3 (moderate); Z79.4 - termite control service representative (current) use of insulin; Z79.4 - termite control service representative (current) use of insulin; Z79.4 - termite control service representative (current) use of insulin; Z79.4 - [facility] (current) use of insulin - Subjective Interval history: For schedule and/or computer reasons, this note is a late entry. Patient was seen on the date of the initial note. Patient's pain is well controlled. She still has not had a bowel movement. We encouraged rectal suppositories and/or laxatives and patient agrees to this. She has no breathing problems and is otherwise, feeling well. Patient has no complaint of chest discomfort, dyspnea, orthopnea, palpitations, nausea or vomiting, constipation or diarrhea, other changes in bowel habits, difficulty with urination, rash or itching, or other new complaints, except as mentioned above. Review of systems is otherwise negative. - Constitutional Vitals: Temp Pulse Resp BP Pulse Ox 98.2 F 74 18 121/68 95 02/23/18 07:32 02/23/18 07:32 02/23/18 07:32 02/23/18 07:32 02/23/18 07:32 General appearance: Present: pleasant, obese, answers questions appropriately Exam: Examination: (Except as mentioned above): General: In no apparent distress. Alert and oriented 3. Nondiaphoretic. Head: Atraumatic and normocephalic. Respiratory: No use of accessory muscles. Lungs are clear throughout. Normal airflow. Cardiovascular: Regular rate and rhythm without murmur appreciated. Abdomen: Bowel sounds are normal. No hepatosplenomegaly mass but does have some low abdominal tenderness at both lower quadrants. Obese and therefore difficult to palpate deeply. Patient is examined upright in chair and this also limits exam. Extremities: No cyanosis clubbing or edema. Skin: Warm and non-diaphoretic with no new lesions noted. Internal Medicine: Result - Labs CBC & Chem 7: 02/22/18 05:50 02/22/18 05:50 - ABG Interpretation ABG results: PT/INR, D-dimer PT 13.4 Seconds (9.4-12.1) H 02/18/18 06:54 - VTE Documentation of Mechanical Device: Graduated compression elastic hosiery Consult Discharge Plan - Plan Referrals: Melida Santos CNP [Primary Care Provider] - (pt states has upcoming appoint )
--- NOTE | 2018-02-23 13:33 | Internal Med Progress Note ---
Date of Encounter: 02/21/18 Time of Encounter: 20:45 - Assessment and plan (1) Urinary tract infection Current Visit: Yes Status: Acute Assessment and plan: We will continue current regimen and follow. Again, she seems to be clinically improving. Qualifiers: Urinary tract infection type: site unspecified Qualified Code(s): N39.0 - Urinary tract infection, site not specified; R31.9 - Hematuria, unspecified (2) Physical deconditioning Current Visit: Yes Status: Acute Assessment and plan: We will continue therapies as planned. She will resume therapies tomorrow as none today. (3) Acute kidney injury superimposed on chronic kidney disease Current Visit: No Status: Acute Assessment and plan: This is apparently stable. Lab to be obtained tomorrow. (4) Type 2 diabetes mellitus Current Visit: No Status: Chronic Assessment and plan: We will continue home regimen and sliding scale insulin coverage, here. Qualifiers: Diabetes mellitus senior care insulin use: with senior care use Diabetes mellitus complication status: with kidney complications Diabetes mellitus complication detail: with chronic kidney disease Chronic kidney disease stage : stage 3 (moderate) Qualified Code(s): E11.22 - Type 2 diabetes mellitus with diabetic chronic kidney disease; N18.3 - Chronic kidney disease, stage 3 ( moderate); N18.3 - Chronic kidney disease, stage 3 (moderate); Z79.4 - long term (current) use of insulin; Z79.4 - long term (current) use of insulin; Z79.4 - snf (current) use of insulin; Z79.4 - snf (current) use of insulin - Subjective Interval history: For schedule and/or computer reasons, this note is a late entry. Patient was seen on the date of the initial note. Patient's discomfort is improving. She notes that she still has not had a bowel movement. I encouraged home use or use here of laxatives. She agrees. No new complaints and breathing well, etc. Patient has no complaint of chest discomfort, dyspnea, orthopnea, palpitations, nausea or vomiting, constipation or diarrhea, other changes in bowel habits, difficulty with urination, rash or itching, or other new complaints, except as mentioned above. Review of systems is otherwise negative. - Constitutional Vitals: Temp Pulse Resp BP Pulse Ox 98.2 F 74 18 121/68 95 02/23/18 07:32 02/23/18 07:32 02/23/18 07:32 02/23/18 07:32 02/23/18 07:32 General appearance: Present: pleasant, obese, answers questions appropriately Exam: Examination: (Except as mentioned above): General: In no apparent distress. Alert and oriented 3. Nondiaphoretic. Head: Atraumatic and normocephalic. Respiratory: No use of accessory muscles. Lungs are clear throughout. Normal airflow. Cardiovascular: Regular rate and rhythm without murmur appreciated. Abdomen: Bowel sounds are normal. No hepatosplenomegaly mass or tenderness appreciated. Obese and therefore difficult to palpate deeply. Extremities: No cyanosis clubbing or edema. Skin: Warm and non-diaphoretic with no new lesions noted. Internal Medicine: Result - Labs CBC & Chem 7: 02/22/18 05:50 02/22/18 05:50 - ABG Interpretation ABG results: PT/INR, D-dimer PT 13.4 Seconds (9.4-12.1) H 02/18/18 06:54 - VTE Documentation of Mechanical Device: Graduated compression elastic hosiery Consult Discharge Plan - Plan Referrals: Melida Santos, CONTENT CURATOR [Primary Care Provider] - (pt states has upcoming appoint )
--- NOTE | 2018-02-24 10:55 | Physician Discharge Referral ---
Home Health/Hosp Referral Info Transfer to: Home Health Provider in Charge Post Discharge: PCP - Diagnosis (1) Urinary tract infection Priority: Primary Status: Inactive (2) Physical deconditioning Priority: Secondary Status: Acute (3) Acute kidney injury superimposed on chronic kidney disease Priority: Secondary Status: Acute (4) Type 2 diabetes mellitus Priority: Secondary Status: Chronic (5) COPD (chronic obstructive pulmonary disease) Priority: Secondary Status: Chronic - Respiratory Orders None Smoking Cessation: Smoking cessation has been advised. For more information, call the [place] Tobacco Quit Line at 4-691-UVTL-NOW. - Diet/Nutrition Diet/Nutrition Orders: No Concentrated Sweets - Activity Activity Orders: Up ad mayank, Walker - Services Needed Following services are medically necessary services: Nursing, Home Health Aide, Physical Therapy - Transfer Medications Home Medications: Cholecalciferol (Vitamin D3) [Vitamin D3] 50,000 unit PO FR 06/14/15 [History] Fenofibrate [Tricor] 48 mg PO HS 06/14/15 [History] Ranolazine [Ranexa] 1,000 mg PO BID 06/14/15 [History] Doxepin [Sinequan] 50 mg PO HS 03/21/16 [History] Insulin Glargine [Lantus] 90 unit SQ HS 03/21/16 [History] Insulin LISPRO [HumaLOG] 30 - 50 units SQ TIDWM 03/21/16 [History] Gabapentin [Neurontin] 400 mg PO TID 07/24/17 [History] HydrOXYzine 10 mg PO BID 07/24/17 [History] Liraglutide [Victoza 2-Pavel] 1.2 mg SQ DAILY 07/24/17 [History] Ranitidine HCl [Zantac] 300 mg PO DAILY 07/24/17 [History] buPROPion HCl [Bupropion HCl Sr] 200 mg PO DAILY 07/24/17 [History] Trazodone HCl 300 mg PO HS 08/31/17 [History] Lisinopril [Zestril] 10 mg PO DAILY tablet 09/05/17 [Rx] Dicyclomine [Bentyl] 10 mg PO QID 09/19/17 [History] Acetaminophen [Tylenol] 650 mg PO Q6HR PRN #16 tablet 01/02/18 [Rx] Atorvastatin Calcium [Lipitor] 80 mg PO HS 02/14/18 [History] Cyclobenzaprine [Flexeril] 10 mg PO BID 02/14/18 [History] Montelukast [Singulair] 10 mg PO DAILY 02/14/18 [History] Pantoprazole Sodium [Protonix] 40 mg PO DAILY 02/14/18 [History] Aspirin Enteric Coated [Aspirin EC] 81 mg PO DAILY tablet. 02/17/18 [Rx] Loratadine [Claritin] 10 mg PO DAILY tablet 02/17/18 [Rx] Metoprolol XL (24 HR) Succ [Toprol Xl] 12.5 mg PO DAILY tab.er.24h 02/17/18 [Rx ] levoFLOXacin [Levaquin] 750 mg PO DAILY 7 Days #7 tablet 02/17/18 [Rx] Allergies/Adverse Reactions: 3 Allergy/AdvReac Type Severity Reaction Status Date / Time Iodinated Contrast- Oral and Allergy Rash Verified 02/13/18 21:15 IV Dye iron Allergy Hives Verified 02/13/18 21:15 [place] Allergy Nausea Verified 02/13/18 21:15 Sulfa (Sulfonamide Allergy Hives Verified 02/13/18 21:15 Antibiotics) Certification: Further, I certify that my clinical findings support that this patient is homebound (i.e. absences from home require considerable and taxing effort and are for medical reasons or anglican services or infrequently or short duration when for other reasons) because: Homebound Reason: Patient requires assistance of a person or device to safely leave home, Leaving home requires considerable and taxing effort due to condition Attestation: My signature below is to certify that this patient is under my care and that I, or nurse practitioner, or a physician's drafter assistant working with me, has a face-to -face encounter with this patient.
== END 2018-02-23 16:10 | disposition home or self-care (01) | DRG 945 ==
LOC: INPGRE 16:11

== ENCOUNTER 2019-03-31 14:20 | Observation (INO) ==
[2019-03-31] MEDS ORDERED: *HR* Dextrose 25% in Water (Syg) 10 ML SYRINGE IVP ONE ×2 (14:57→18:56)
[2019-03-31] MEDS ORDERED: *HR* Dextrose 50 % in Water (Syg) 50 ML SYRINGE ONE ×2 (14:58→18:04)
[2019-03-31] MEDS ORDERED: Gadolinium Contrast Agent (WT Based) IV PRN ×2 (15:41→18:12)
[2019-03-31 16:31] LABS: Basophils # 0.1 K/mcL (0.0-0.2); Basophils % 0.4 %; Eosinophils # 0.3 K/mcL (0.0-0.6); Eosinophils % 2.4 %; Hematocrit 41.2 % (35.3-44.9); Hemoglobin 13.3 g/dL (11.5-15.4); Immature Granulocytes % 0.3 % (0-4); Lymphocytes # 3.3 K/mcL (0.6-4.6); Lymphocytes % 23.6 %; Mean Corpuscular HGB Conc 32.3 g/dL (31.6-35.5); Mean Corpuscular Hemoglobin 28.1 pg (28.0-33.3); Mean Corpuscular Volume 86.9 fL (83.0-100.0); Mean Platelet Volume 10.1 fL (9.4-12.4); Monocytes # 1.1 K/mcL (0.0-1.3); Platelet Count 316 K/mcL (140-400); Red Blood Count 4.74 M/mcL (3.82-4.97); Red Cell Distribution Width 14.4 % (11.5-14.5); Segmented Neutrophils % 65.3 %; White Blood Count 13.8 K/mcL (4.3-11.1)
[2019-03-31 16:41] LABS: Bilirubin,Urine Negative (Negative); Blood,Urine Trace-intact (Negative); Clarity,Urine Turbid (Clear); Color,Urine Yellow (Yellow); Glucose,Urine (UA) Normal (Normal); Ketones,Urine Negative (Negative); Leukocyte Esterase,Urine Large (Negative); Nitrite,Urine Positive (Negative); Protein,Urine Negative (Neg-Trace); Specific Gravity,Urine <= 1.005 (1.010-1.025); Urobilinogen,Urine Normal (Normal)
[2019-03-31 16:42] LABS: Ethanol < 10 mg/dL (Less than 10)
[2019-03-31 16:59] LABS: Bacteria,Urine Many per hpf (None-Few); Squamous Epithelial Cell,Urine Few per lpf (None-Few); WBC,Urine TNTC per hpf (0-3)
[2019-03-31 17:11] LABS: Amphetamine Screen,Urine Negative ng/mL (Cutoff=1000); Barbiturate Screen,Urine Negative ng/mL (Cutoff=200); Benzodiazepines Screen,Urine Negative ng/mL (Cutoff=200); Cannabinoid Screen,Urine Negative ng/mL (Cutoff = 50); Cocaine Screen,Urine Negative ng/mL (Cutoff= 300); Opiate Screen,Urine Positive ng/mL (Cutoff=300); Phencyclidine Screen,Urine Negative ng/mL (Cutoff=25)
--- NOTE | 2019-03-31 17:14 | Emergency Department Note ---
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 Blood sugar was 40 by EMS and they gave D 25 amp. It was 70 when she got here. She reports she is feeling hungry and was trying to eat but became more somnolent and a short time later the blood sugar was 35 at which time an amp of D50 was given. She regained alertness but says that she is still not feeling completely back to normal. Blood sugar 109 but she still having episodes of somnolence that she is trying to feed yourself. She lives at home alone but does have home health come in for about 8 hours a day 5 days a week. Her son is there but his involvement specifically in her ongoing health-care needs is not known. During her lucid moments I did take a history and she injects insulin which from her pharmacy verified listed they just sent over at our request she is on quick acting Humalog. She uses a sliding scale and takes this 4 times a day depending on her sugar is. She tells me she did not have breakfast today the meal that she is eating now at approximately 2:45 in the afternoon is her first meal the day. She did not check her sugar before injecting insulin today. She is not sure what time she injected it or how much. She tells me that her pharmacy prepares her m edications for her and sends them to her. She does not have very many low blood sugar episodes that she can remember. She was feeling otherwise fine up until the time that she started to have a low blood sugar which time she said she started to feel very sleepy. She denies any headache fever or chills vision changes speech changes sore throat chest pain shortness of breath palpitations abdominal pain nausea vomiting diarrhea or skin rashes. She did not fall during her time of decreased mental status. She tells me that she just took "one pill "of her pain medication thus far today. She has both oxycodone and morphine listed on her medication list. She is not sure which one she took. 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 She saw her oncologist per chart review on February 13. Plan was to see her in a month which seems to have passed with a follow-up MRI of the brain. Per rad tach here at [facility] that has been ordered but not scheduled or done. Pain Scale: 0 - Related Data Home Medications Medication Instructions Recorded Confirmed Ergocalciferol (VITAMIN D2) 50,000 unit PO QWEEK 06/15/18 03/31/19 [Vitamin D2] Gabapentin [Neurontin] 400 mg PO TID 06/15/18 03/31/19 Montelukast [Singulair] 10 mg PO HS 06/15/18 03/31/19 Atorvastatin Calcium 80 mg PO HS 06/28/18 03/31/19 Doxepin HCl 50 mg PO HS 06/28/18 03/31/19 Carvedilol [Coreg] 6.25 mg PO BIDWM 07/27/18 03/31/19 Docusate Sodium [Colace] 100 mg PO BID 07/27/18 03/31/19 Famotidine [Heartburn Prevention] 20 mg PO Q12H 07/27/18 03/31/19 Hydroxyzine HCl 5 - 10 mg PO Q12H PRN 07/30/18 03/31/19 Oxycodone HCl [Roxybond] 5 mg PO Q6H PRN 07/30/18 03/31/19 Pantoprazole Sodium [Protonix] 40 mg PO HS 07/30/18 03/31/19 Aspirin [Lo-Dose Aspirin EC] 81 mg PO DAILY 11/09/18 03/31/19 Hydrochlorothiazide [Microzide] 12.5 mg PO DAILY 11/09/18 03/31/19 Insulin LISPRO [HumaLOG] 25 units SQ HS 11/09/18 03/31/19 Morphine Sulfate [Morphine Sulfate 15 mg PO BID 11/09/18 03/31/19 ER] Previous Rx's Medication Instructions Recorded Insulin LISPRO [HumaLOG] 0 units SQ TIDAC vial 07/07/18 GuaiFENesin/Dextromethorphan 5 ml PO Q6HR #118 syrup 02/07/19 [Robitussin/DM] Ascorbic Acid [Vitamin C] 500 mg PO DAILY #30 tablet 02/16/19 Ferrous Sulfate 325 mg PO DAILY #30 tablet 02/16/19 Allergies Allergy/AdvReac Type Severity Reaction Status Date / Time Iodinated Contrast- Oral and Allergy Rash Verified 02/16/19 14:47 IV Dye iron Allergy Hives Verified 02/16/19 14:47 [place] Allergy Nausea Verified 02/16/19 14:47 Sulfa (Sulfonamide Allergy Hives Verified 02/16/19 14:47 Antibiotics) adhesive tape AdvReac Rash Verified 02/16/19 14:47 Constitutional: Denies: fever, chills Eyes: Denies: vision change ENT ED: Denies: throat pain, dysphagia Cardiovascular: Reports: syncope. Denies: chest pain, palpitations, dyspnea on exertion Respiratory: Denies: cough, dyspnea Gastrointestinal: Denies: abdominal pain, nausea, vomiting, diarrhea Genitourinary: Reports: other (Denies any urinary symptoms) Musculoskeletal: Denies: back pain, neck pain Integumentary: Denies: rash Neurological: Reports: weakness (She tells me that she has had some residual right hand weakness since the brain surgery in July). 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 - Social History Smoking Status: Former smoker Smokeless Tobacco Status: No Alcohol use: Reports: none Drug use: Reports: none Physical Exam - General Limitations: no limitations General appearance: alert, in no apparent distress - Head Head exam: atraumatic, normocephalic - Eye Eye exam: Present: PERRL, EOMI, other (Left-sided ptosis which is long-standing since her brain surgery in July) - ENT ENT exam: normal exam, normal oropharynx, mucous membranes moist, normal e xternal ear exam - Neck Neck exam: Present: normal inspection, other (Supple) - Chest Chest inspection: Present: normal inspection, symmetric chest wall rise - Respiratory Respiratory exam: Present: normal lung sounds bilaterally. Absent: respiratory distress, wheezes, stridor - Cardiovascular Cardiovascular exam: Present: regular rate, normal rhythm, normal heart sounds. Absent: systolic murmur, diastolic murmur - Abdominal Exam Abdominal exam: Present: soft, Non-Tender - Extremities Exam Extremities exam: Present: normal inspection. Absent: pedal edema - Neurological Exam Neurological exam: Present: alert, oriented X3, CN II-XII intact. Absent: motor sensory deficit - Psychiatric Psychiatric exam: Present: normal affect, normal mood - Skin Skin exam: Present: warm, dry Course Vital Signs Temperature 98.0 F 03/31/19 14:24 Pulse Rate 85 03/31/19 14:24 Respiratory Rate 16 03/31/19 14:24 Blood Pressure 154/63 03/31/19 14:24 O2 Sat by Pulse Oximetry 95 03/31/19 14:24 Temperature 98.0 F 03/31/19 14:24 Pulse Rate 73 03/31/19 17:15 Respiratory Rate 16 03/31/19 17:15 Blood Pressure 145/84 03/31/19 17:15 O2 Sat by Pulse Oximetry 96 03/31/19 17:15 Oxygen Delivery Oxygen Delivery Room Air Medical Decision Making - MDM Narrative Medical decision making narrative: Hypoglycemia. She is not sure how much insulin she took when she took it and did not eat breakfast or check her blood sugar before she took it. This certainly raises safety questions. She seems to be on a somewhat unconventional regimen of fast acting Humalog 4 times a day based on a sliding scale. We will bring her into the hospital to check her sugars and titrate hopefully and easier diabetic control regimen. She is open to doing this and is in stable condition awaiting transfer to the floor.. When she began to get somnolent here in the emergency department we rechecked it at 35 as per history of present illness. Shortly thereafter was 272 and then dropped down to 109. 29 on the venipuncture chemistry during lab workup and then it was 50 just prior to transfer to the floor. She tells me that she did have a little bit to eat but did not finish the tray. She will be given a DT 25 here in the emergency department and we will start a dextrose drip D5 0.9 at 100 ML's per hour when she arrives. I spoke with the covering hospitalist and presented the case. He accepted admission. She is in stable condition. Lung cancer with brain metastasis. On chart review she saw her oncologist February 16 to back in a month with a brain MRI. About 6 weeks now. Staff here at [facility] tells me that the MRIs been ordered but not scheduled or done. I am told that that is available today. It was undertaken with and without contrast as per the oncology note. There is some worrisome findings on this MRI and I spoke with the covering oncologist and presented the case to see if transfer to [place] might be warranted. He recommended outpatient follow-up with her oncologist next week. Urinalysis suggestive of urinary tract infection. She is not reporting any urinary symptoms. We will allow this culture to grow before starting empiric treatment. - Medical Records Medical records reviewed: Yes I reviewed the patient's medical records. - Lab Data Lab results reviewed: Yes I reviewed the patient's lab results. Result diagrams: 03/31/19 16:12 03/31/19 16:12 Lab Results 03/31/19 03/31/19 03/31/19 Range/Units 14:23 14:56 15:00 WBC (4.3-11.1) K/mcL RBC (3.82-4.97) M/mcL Hgb (11.5-15.4) g/dL Hct (35.3-44.9) % MCV (83.0-100.0) fL MCH (28.0-33.3) pg MCHC (31.6-35.5) g/dL RDW (11.5-14.5) % Plt Count (140-400) K/mcL MPV (9.4-12.4) fL Immature Gran % (0-4) % Seg Neutrophils % % Lymphocytes % % Monocytes % % Eosinophils % % Basophils % % Neutrophils # (1.6-8.9) K/mcL Lymphocytes # (0.6-4.6) K/mcL Monocytes # (0.0-1.3) K/mcL Eosinophils # (0.0-0.6) K/mcL Basophils # (0.0-0.2) K/mcL Sodium (136-145) mEq/L Potassium (3.5-5.1) mEq/L Chloride (98-107) mEq/L Carbon Dioxide (23-29) mEq/L BUN (8-23) mg/dL Creatinine (0.60-1.20) mg/dL Est GFR ( Amer) (> 60) Est GFR (Non-Af Amer) (> 60) BUN/Creatinine Ratio (6-26) Glucose (70-105) mg/dL POC Glucose 70 35 L* 272 H (70-99) mg/dL Calculated Osmolality (280-300) Calcium (8.6-10.3) mg/dL Magnesium (1.6-2.6) mg/dL Total Bilirubin (0.3-1.0) mg/dL AST (13-39) Units/L ALT (7-52) Units/L Alkaline Phosphatase (34-104) Units/L Serum Total Protein (6.4-8.9) g/dL Albumin (3.5-5.7) g/dL Globulin (2.4-3.5) g/dL Albumin/Globulin Ratio (1.1-2.2) TSH (0.340-5.600) mcIU/mL Urine Color (Yellow) Urine Clarity (Clear) Urine pH (5.0-8.0) pH Units Ur Specific [place] (1.010-1.025) Urine Protein (Neg-Trace) mg/dL Urine Glucose (UA) (Normal) mg/dL Urine Ketones (Negative) mg/dL Urine Blood (Negative) Urine Nitrite (Negative) Urine Bilirubin (Negative) Urine Urobilinogen (Normal) mg/dL Ur Leukocyte Esterase (Negative) Urine Microscopic RBC (0-3) per hpf Urine Microscopic WBC (0-3) per hpf Ur Squamous Epith Cells (None-Few) per lpf Urine Bacteria (None-Few) per hpf Ur Culture Indicated? (NO) Salicylates (15.0-30.0) mg/dL Urine Opiates Screen (Jsylad=528) ng/mL Acetaminophen (10-20) mcg/mL Ur Barbiturates Screen (Wugqsj=745) ng/mL Ur Phencyclidine Scrn (Cutoff=25) ng/mL Ur Amphetamines Screen (Qxlzhk=3196) ng/mL U Benzodiazepines Scrn (Qmvpsv=364) ng/mL Urine Cocaine Screen (Cutoff= 300) ng/mL U Marijuana (THC) Screen (Cutoff = 50) ng/mL Ur Drug Screen Interp Ethyl Alcohol (Less than 10) mg/dL 03/31/19 03/31/19 03/31/19 Range/Units 15:26 16:12 16:12 WBC 13.8 H (4.3-11.1) K/mcL RBC 4.74 (3.82-4.97) M/mcL Hgb 13.3 (11.5-15.4) g/dL Hct 41.2 (35.3-44.9) % MCV 86.9 (83.0-100.0) fL MCH 28.1 (28.0-33.3) pg MCHC 32.3 (31.6-35.5) g/dL RDW 14.4 (11.5-14.5) % Plt Count 316 (140-400) K/mcL MPV 10.1 (9.4-12.4) fL Immature Gran % 0.3 (0-4) % Seg Neutrophils % 65.3 % Lymphocytes % 23.6 % Monocytes % 8.0 % Eosinophils % 2.4 % Basophils % 0.4 % Neutrophils # 9.0 H (1.6-8.9) K/mcL Lymphocytes # 3.3 (0.6-4.6) K/mcL Monocytes # 1.1 (0.0-1.3) K/mcL Eosinophils # 0.3 (0.0-0.6) K/mcL Basophils # 0.1 (0.0-0.2) K/mcL Sodium 135 L (136-145) mEq/L Potassium 3.2 L (3.5-5.1) mEq/L Chloride 99 (98-107) mEq/L Carbon Dioxide 25 (23-29) mEq/L BUN 8 (8-23) mg/dL Creatinine 1.09 (0.60-1.20) mg/dL Est GFR ( Amer) 60 (> 60) Est GFR (Non-Af Amer) 49 L (> 60) BUN/Creatinine Ratio 7 (6-26) Glucose 29 L* (70-105) mg/dL POC Glucose 109 H (70-99) mg/dL Calculated Osmolality 274 L (280-300) Calcium 10.4 H (8.6-10.3) mg/dL Magnesium 1.7 (1.6-2.6) mg/dL Total Bilirubin 0.4 (0.3-1.0) mg/dL AST 18 (13-39) Units/L ALT 16 (7-52) Units/L Alkaline Phosphatase 56 (34-104) Units/L Serum Total Protein 7.5 (6.4-8.9) g/dL Albumin 4.4 (3.5-5.7) g/dL Globulin 3.1 (2.4-3.5) g/dL Albumin/Globulin Ratio 1.4 (1.1-2.2) TSH (0.340-5.600) mcIU/mL Urine Color (Yellow) Urine Clarity (Clear) Urine pH (5.0-8.0) pH Units Ur Specific [place] (1.010-1.025) Urine Protein (Neg-Trace) mg/dL Urine Glucose (UA) (Normal) mg/dL Urine Ketones (Negative) mg/dL Urine Blood (Negative) Urine Nitrite (Negative) Urine Bilirubin (Negative) Urine Urobilinogen (Normal) mg/dL Ur Leukocyte Esterase (Negative) Urine Microscopic RBC (0-3) per hpf Urine Microscopic WBC (0-3) per hpf Ur Squamous Epith Cells (None-Few) per lpf Urine Bacteria (None-Few) per hpf Ur Culture Indicated? (NO) Salicylates < 2.5 L (15.0-30.0) mg/dL Urine Opiates Screen (Wfeptp=477) ng/mL Acetaminophen < 10 L (10-20) mcg/mL Ur Barbiturates Screen (Tgboyn=154) ng/mL Ur Phencyclidine Scrn (Cutoff=25) ng/mL Ur Amphetamines Screen (Azijik=1530) ng/mL U Benzodiazepines Scrn (Jvaqkm=941) ng/mL Urine Cocaine Screen (Cutoff= 300) ng/mL U Marijuana (THC) Screen (Cutoff = 50) ng/mL Ur Drug Screen Interp Ethyl Alcohol < 10 (Less than 10) mg/dL 03/31/19 03/31/19 03/31/19 Range/Units 16:12 16:35 16:35 WBC (4.3-11.1) K/mcL RBC (3.82-4.97) M/mcL Hgb (11.5-15.4) g/dL Hct (35.3-44.9) % MCV (83.0-100.0) fL MCH (28.0-33.3) pg MCHC (31.6-35.5) g/dL RDW (11.5-14.5) % Plt Count (140-400) K/mcL MPV (9.4-12.4) fL Immature Gran % (0-4) % Seg Neutrophils % % Lymphocytes % % Monocytes % % Eosinophils % % Basophils % % Neutrophils # (1.6-8.9) K/mcL Lymphocytes # (0.6-4.6) K/mcL Monocytes # (0.0-1.3) K/mcL Eosinophils # (0.0-0.6) K/mcL Basophils # (0.0-0.2) K/mcL Sodium (136-145) mEq/L Potassium (3.5-5.1) mEq/L Chloride (98-107) mEq/L Carbon Dioxide (23-29) mEq/L BUN (8-23) mg/dL Creatinine (0.60-1.20) mg/dL Est GFR ( Amer) (> 60) Est GFR (Non-Af Amer) (> 60) BUN/Creatinine Ratio (6-26) Glucose (70-105) mg/dL POC Glucose (70-99) mg/dL Calculated Osmolality (280-300) Calcium (8.6-10.3) mg/dL Magnesium (1.6-2.6) mg/dL Total Bilirubin (0.3-1.0) mg/dL AST (13-39) Units/L ALT (7-52) Units/L Alkaline Phosphatase (34-104) Units/L Serum Total Protein (6.4-8.9) g/dL Albumin (3.5-5.7) g/dL Globulin (2.4-3.5) g/dL Albumin/Globulin Ratio (1.1-2.2) TSH 4.235 (0.340-5.600) mcIU/mL Urine Color Yellow (Yellow) Urine Clarity Turbid A (Clear) Urine pH 6.0 (5.0-8.0) pH Units Ur Specific [place] <= 1.005 L (1.010-1.025) Urine Protein Negative (Neg-Trace) mg/dL Urine Glucose (UA) Normal (Normal) mg/dL Urine Ketones Negative (Negative) mg/dL Urine Blood Trace-intact H (Negative) Urine Nitrite Positive A (Negative) Urine Bilirubin Negative (Negative) Urine Urobilinogen Normal (Normal) mg/dL Ur Leukocyte Esterase Large H (Negative) Urine Microscopic RBC 5-15 H (0-3) per hpf Urine Microscopic WBC TNTC H (0-3) per hpf Ur Squamous Epith Cells Few (None-Few) per lpf Urine Bacteria Many H (None-Few) per hpf Ur Culture Indicated? YES A (NO) Salicylates (15.0-30.0) mg/dL Urine Opiates Screen Positive H (Mdpdze=579) ng/mL Acetaminophen (10-20) mcg/mL Ur Barbiturates Screen Negative (Ccjpop=848) ng/mL Ur Phencyclidine Scrn Negative (Cutoff=25) ng/mL Ur Amphetamines Screen Negative (Oognbj=3187) ng/mL U Benzodiazepines Scrn Negative (Awtomm=073) ng/mL Urine Cocaine Screen Negative (Cutoff= 300) ng/mL U Marijuana (THC) Screen Negative (Cutoff = 50) ng/mL Ur Drug Screen Interp See Below Ethyl Alcohol (Less than 10) mg/dL 03/31/19 Range/Units 17:59 WBC (4.3-11.1) K/mcL RBC (3.82-4.97) M/mcL Hgb (11.5-15.4) g/dL Hct (35.3-44.9) % MCV (83.0-100.0) fL MCH (28.0-33.3) pg MCHC (31.6-35.5) g/dL RDW (11.5-14.5) % Plt Count (140-400) K/mcL MPV (9.4-12.4) fL Immature Gran % (0-4) % Seg Neutrophils % % Lymphocytes % % Monocytes % % Eosinophils % % Basophils % % Neutrophils # (1.6-8.9) K/mcL Lymphocytes # (0.6-4.6) K/mcL Monocytes # (0.0-1.3) K/mcL Eosinophils # (0.0-0.6) K/mcL Basophils # (0.0-0.2) K/mcL Sodium (136-145) mEq/L Potassium (3.5-5.1) mEq/L Chloride (98-107) mEq/L Carbon Dioxide (23-29) mEq/L BUN (8-23) mg/dL Creatinine (0.60-1.20) mg/dL Est GFR ( Amer) (> 60) Est GFR (Non-Af Amer) (> 60) BUN/Creatinine Ratio (6-26) Glucose (70-105) mg/dL POC Glucose 50 L (70-99) mg/dL Calculated Osmolality (280-300) Calcium (8.6-10.3) mg/dL Magnesium (1.6-2.6) mg/dL Total Bilirubin (0.3-1.0) mg/dL AST (13-39) Units/L ALT (7-52) Units/L Alkaline Phosphatase (34-104) Units/L Serum Total Protein (6.4-8.9) g/dL Albumin (3.5-5.7) g/dL Globulin (2.4-3.5) g/dL Albumin/Globulin Ratio (1.1-2.2) TSH (0.340-5.600) mcIU/mL Urine Color (Yellow) Urine Clarity (Clear) Urine pH (5.0-8.0) pH Units Ur Specific [place] (1.010-1.025) Urine Protein (Neg-Trace) mg/dL Urine Glucose (UA) (Normal) mg/dL Urine Ketones (Negative) mg/dL Urine Blood (Negative) Urine Nitrite (Negative) Urine Bilirubin (Negative) Urine Urobilinogen (Normal) mg/dL Ur Leukocyte Esterase (Negative) Urine Microscopic RBC (0-3) per hpf Urine Microscopic WBC (0-3) per hpf Ur Squamous Epith Cells (None-Few) per lpf Urine Bacteria (None-Few) per hpf Ur Culture Indicated? (NO) Salicylates (15.0-30.0) mg/dL Urine Opiates Screen (Gtymdc=223) ng/mL Acetaminophen (10-20) mcg/mL Ur Barbiturates Screen (Nswqva=377) ng/mL Ur Phencyclidine Scrn (Cutoff=25) ng/mL Ur Amphetamines Screen (Koucxn=8456) ng/mL U Benzodiazepines Scrn (Ifrvtj=971) ng/mL Urine Cocaine Screen (Cutoff= 300) ng/mL U Marijuana (THC) Screen (Cutoff = 50) ng/mL Ur Drug Screen Interp Ethyl Alcohol (Less than 10) mg/dL - Radiology Data Radiology results reviewed: Yes I reviewed the patient's radiology results.
[2019-03-31 17:43] LABS: Acetaminophen < 10 mcg/mL (10-20); Alanine Aminotransferase 16 Units/L (7-52); Albumin 4.4 g/dL (3.5-5.7); Albumin/Globulin Ratio 1.4 (1.1-2.2); Alkaline Phosphatase 56 Units/L (34-104); Aspartate Amino Transferase 18 Units/L (13-39); BUN/Creatinine Ratio 7 (6-26); Bilirubin,Total 0.4 mg/dL (0.3-1.0); Blood Urea Nitrogen 8 mg/dL (8-23); Calcium 10.4 mg/dL (8.6-10.3); Carbon Dioxide 25 mEq/L (23-29); Chloride 99 mEq/L (98-107); Globulin 3.1 g/dL (2.4-3.5); Glucose 29 mg/dL (70-105); Magnesium 1.7 mg/dL (1.6-2.6); Osmolality,Calculated 274 (280-300); Potassium 3.2 mEq/L (3.5-5.1); Salicylate < 2.5 mg/dL (15.0-30.0); Sodium 135 mEq/L (136-145); Total Protein 7.5 g/dL (6.4-8.9); eGFR For African Americans 60 (> 60); eGFR For Non-African Americans 49 (> 60)
[2019-03-31] MEDS ORDERED: Potassium Chloride Elixir 20 MEQ/15 ML UDC PO ONE (18:03)
[2019-03-31] MEDS ORDERED: *HR* Dextrose 50 % in Water (Syg) 50 ML SYRINGE IVP ONE (18:03)
[2019-03-31] MEDS ORDERED: Naloxone 0.4 MG/ML INJ IVP PRN (18:12)
[2019-03-31] MEDS ORDERED: Ondansetron 4 MG/2 ML VIAL IVP PRN (18:12)
[2019-03-31] MEDS ORDERED: D5% in Water 1,000 ML IVC PRN (18:58)
[2019-03-31] MEDS ORDERED: *HR* Dextrose 50 % in Water (Syg) 50 ML SYRINGE IVP PRN (18:58)
[2019-03-31] MEDS ORDERED: Dextrose Gel 15 GM/37.5 ML TUBE PO PRN ×2 (18:58)
[2019-03-31] MEDS: D5% in 0.9% NACL 1,000 ML IVC SCH (19:45)
[2019-03-31] MEDS: Gabapentin 400 MG CAPSULE PO SCH (20:25)
[2019-03-31] MEDS ORDERED: Amoxicillin Susp 250 MG/5 ML MLS PO SCH (22:45)
[2019-03-31] MEDS ORDERED: Amoxicillin 500 MG CAPSULE PO SCH (23:30)
[2019-03-31] MEDS: Insulin LISPRO 300 UNITS/3 ML VIAL SQ SCH (23:55)
[2019-04-01] MEDS ORDERED: Acetaminophen 650 MG RECTAL SUPP RC PRN (00:43)
[2019-04-01] MEDS ORDERED: 0.9 % Sodium Chloride 500 ML IV ONE (00:54)
[2019-04-01] MEDS: Piperacillin/Tazobactam 3.375 GM in 0.9 % Sodium Chloride Mini Bag 100 ML IVPB SCH ×4 (01:20→19:54)
[2019-04-01 05:35] LABS: Potassium 4.5 mEq/L (3.5-5.1)
[2019-04-01 05:52] LABS: Calcium 9.4 mg/dL (8.6-10.3)
[2019-04-01] MEDS: D5% in 0.9% NACL 1,000 ML IVC SCH (06:22)
[2019-04-01] MEDS: Insulin LISPRO 300 UNITS/3 ML VIAL SQ SCH ×4 (07:58→20:07)
[2019-04-01] MEDS: hydroCHLOROthiazide 25 MG TABLET PO SCH (07:58)
[2019-04-01] MEDS: Ascorbic Acid 500 MG TABLET PO SCH (07:59)
[2019-04-01] MEDS: Gabapentin 400 MG CAPSULE PO SCH ×3 (07:59→19:53)
--- NOTE | 2019-04-01 10:17 | Internal Med History&Physical ---
Date of Encounter: 04/01/19 Time of Encounter: 10:14 Assessment and Plan (1) Type 2 diabetes mellitus Current visit: Yes Status: Chronic Patient with poorly controlled diabetes. Her glucose on admission was 40 and then this morning is greater than 300. Patient with complicated coverage being performed at home with questionable compliance due to confusion on dosing. Will continue with fingersticks and sliding scale coverage and will evaluate her lo ng-acting insulin coverage. 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 She has been febrile overnight, requiring fluid resuscitation. Today vital signs are stable. Patient continues on Zosyn at this time. 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 Patient had a debulking in July and follow-up MRI performed yesterday showed possible slight recurrence of tumor. No mass effect or signs of hydrocephalus noted other than patient's drowsiness. Patient will continue her follow-up with oncology, who has been treating her for her lung CA (4) COPD (chronic obstructive pulmonary disease) Current visit: Yes Status: Chronic No acute issues at this time. Patient with history of lung CA. Chest x-ray showed no infectious process. We will continue with current medications and monitor closely. Patient denies any dyspnea or productive cough Qualifiers: COPD type: emphysema Emphysema type: centrilobular Qualified Code(s): J43.2 - Centrilobular emphysema (5) Essential hypertension Current visit: Yes Status: Chronic Vital signs stable during her stay. We will continue with current medications and monitor closely (6) Chronic kidney disease, stage IV (severe) Current visit: Yes Status: Chronic No acute issues at this time. Patient's most recent creatinine is 1.12. We will continue to monitor closely and continue on current home medications (7) CAD (coronary artery disease) Current visit: Yes Status: Chronic No acute issues during this admission. We will continue on current medications. Patient denies any palpitations or chest discomforts. Qualifiers: Coronary Disease-Associated Artery/Lesion type: [place] artery [place] vs. transplanted heart: [place] heart Associated angina: without angina Qualified Code(s): I25.10 - Atherosclerotic heart disease of [place] coronary artery without angina pectoris Internal Medicine - H&P: HPI Chief complaint: Hypoglycemia Admitted From: Home Plans for Post Hospital Care: Home History of present illness: Ms. Richards is a 74 year old female, who was admitted to the emergency department last evening after presenting with hypoglycemia and a fever. Patient reportedly has showed decreased LOC and was brought to the emergency department where she was found to have a glucose of 40. He was treated and responded well with her glucose normalizing. Patient was also discovered to have a UTI and was shaan ntually admitted to the medical floor here for further evaluation and treatment. Patient was started on Zosyn. Patient had a chest x-ray which showed no acute infectious process. Patient also has a history of lung CA with metastasis to the brain. Patient had a debulking of a cerebellum mass in July. Due to her drowsiness on admission a MRI was obtained which showed the area of the left cer ebellar mass resection with possible increased or relieve current tumor. No significant mass effect or signs of hydrocephalus was noted. Patient shows no focal neurological deficits on exam. During the evening patient's fever had increased to 103. Her vital signs showed an elevated heart rate greater than 120, but blood pressure was stable. Patient required fluid resuscitation overnight and today appears much improved. Today patient appears relaxed and denies any current discomforts or shortness of breath. He denies any fever or chills. Denies any dysuria. Patient's glucose this morning is elevated greater than 300. His been reported patient had complicated coverage at home with questionable compliance, as patient may of been confused with her dosing. Past Med Surg Social Fam HX - Past Medical History Medical history: cancer, CHF, coronary artery disease, CVA, diabetes, fibromyalgia, GERD, hyperlipidemia, hypertension, myocardial infarction, osteoporosis, renal disease, syncope, other Additional medical history: CHRONIC BACK/KNEE PAIN, Brain Cancer, Lung Cancer, Cervical Cancer Psychiatric history: anxiety, bipolar, depression - Past Surgical History Surgical History: angioplasty/stent, appendectomy, cancer surgery, cholecystectomy, hysterectomy Additional surgical history: 6 stents. - Social History Smoking Status: Former smoker Smokeless Tobacco Status: No Alcohol use: none Drug use: none - Family History Mother Living Status: Sister Living Status: Hx Family Cardiac Disorders: Yes Hx Family Respiratory Disorders: Yes (Lung cancer) Brother Adopted: No Family Member Ethnicity: Non- Living Status: Still Living Hx Family Cardiac Disorders: Yes Hx Family Respiratory Disorders: Yes Hx Family Cancer: Yes Hx Family GI Disorders: No Hx Family Endocrine Disorder: No Hx Family Neuromuscular Disorders: No Hx Family Neurologic Disorders: No Hx Family HEENT Disorders: No Hx Family Autoimmune Disorders: No Father Adopted: No Family Member Ethnicity: Non- Living Status: Hx Family Cardiac Disorders: Yes Hx Family Respiratory Disorders: No Hx Family Cancer: No Hx Family GI Disorders: No Hx Family Endocrine Disorder: No Hx Family Neuromuscular Disorders: No Hx Family Neurologic Disorders: No Hx Family HEENT Disorders: No Hx Family Autoimmune Disorders: No Internal Medicine - H&P: Meds Ergocalciferol (VITAMIN D2) [Vitamin D2] 50,000 unit PO QWEEK 06/15/18 [History] Gabapentin [Neurontin] 400 mg PO TID 06/15/18 [History] Montelukast [Singulair] 10 mg PO HS 06/15/18 [History] Atorvastatin Calcium 80 mg PO HS 06/28/18 [History] Doxepin HCl 50 mg PO HS 06/28/18 [History] Insulin LISPRO [HumaLOG] 0 units SQ TIDAC vial 07/07/18 [Rx] Carvedilol [Coreg] 6.25 mg PO BIDWM 07/27/18 [History] Docusate Sodium [Colace] 100 mg PO BID 07/27/18 [History] Famotidine [Heartburn Prevention] 20 mg PO Q12H 07/27/18 [History] Hydroxyzine HCl 5 - 10 mg PO Q12H PRN 07/30/18 [History] Oxycodone HCl [Roxybond] 5 mg PO Q6H PRN 07/30/18 [History] Pantoprazole Sodium [Protonix] 40 mg PO HS 07/30/18 [History] Aspirin [Lo-Dose Aspirin EC] 81 mg PO DAILY 11/09/18 [History] Hydrochlorothiazide [Microzide] 12.5 mg PO DAILY 11/09/18 [History] Insulin LISPRO [HumaLOG] 25 units SQ HS 11/09/18 [History] Morphine Sulfate [Morphine Sulfate ER] 15 mg PO BID 11/09/18 [History] GuaiFENesin/Dextromethorphan [Robitussin/DM] 5 ml PO Q6HR #118 syrup 02/07/19 [Rx] Ascorbic Acid [Vitamin C] 500 mg PO DAILY #30 tablet 02/16/19 [Rx] Ferrous Sulfate 325 mg PO DAILY #30 tablet 02/16/19 [Rx] Allergy/AdvReac Type Severity Reaction Status Date / Time Iodinated Contrast- Oral and Allergy Rash Verified 02/16/19 14:47 IV Dye iron Allergy Hives Verified 02/16/19 14:47 [place] Allergy Nausea Verified 02/16/19 14:47 Sulfa (Sulfonamide Allergy Hives Verified 02/16/19 14:47 Antibiotics) adhesive tape AdvReac Rash Verified 02/16/19 14:47 All Systems PM: A 10-system review of systems was performed and is negative for pertinent findings except as documented above in the HPI. - Constitutional Constitutional: as per HPI, no chills, no fever(s), no night sweats - EENT Eyes: as per HPI, no change in vision, no discharge, no pain, no photophobia Ears: no ear discharge, no ear pain, no tinnitus Nose, mouth and throat: as per HPI, no dysphagia, no nasal discharge, no neck pain, no sore throat - Breasts Breasts: as per HPI - Cardiovascular Cardiovascular ROS IM: as per HPI, no chest pain, no diaphoresis, no dyspnea, no lightheadedness, no palpitations, no syncope - Respiratory Respiratory: as per HPI, no cough, no dyspnea, no wheezing, no excessive phlegm production - Gastrointestinal Gastrointestinal: as per HPI, no abdominal pain, no diarrhea, no hematemesis, no hematochezia, no melena, no nausea, no vomiting - Genitourinary Genitourinary: as per HPI, no change in urinary stream, no dysuria, no flank pain, no hematuria - Musculoskeletal Musculoskeletal ROS IM: as per HPI, no numbness, no tingling - Integumentary Integumentary IM: as per HPI, no rash, no unusual bruising - Neurological Neurological ROS: as per HPI, no confusion, no convulsions, no focal weakness, no numbness, no tingling, no tremor(s) - Hematologic/Lymphatic Hematologic/Lymphatic: no easy bruising - Constitutional Vitals: Temp Pulse Resp BP Pulse Ox 97.9 F 96 16 108/70 96 04/01/19 07:39 04/01/19 07:39 04/01/19 07:39 04/01/19 07:39 04/01/19 07:39 General appearance: Present: A&O X 3, pleasant Exam: Patient noted to be drowsy. - Head Head exam: Present: atraumatic, normocephalic - Eye Eye exam: Present: PERRL, conjuntiva pink, sclera anicteric Pupils: Present: PERRL - Neck Neck exam general surgery: Present: supple, trachea midline. Absent: lymphadeno wanda - Respiratory Respiratory exam: Present: CTAB, rales. Absent: accessory muscle use, rhonchi, wheezes Additional comments: Lungs are clear throughout [place] but noted fine bibasal rales posteriorly. Respiratory effort appears relaxed with no productive cough. - Cardiovascular Cardiovascular exam: Present: RRR, +S1, +S2. Absent: diastolic murmur, gallop, rubs, systolic murmur - GI/Abdominal GI/Abdominal exam: Present: normal bowel sounds, soft, no peritoneal signs. Absent: distended, tenderness - Extremities Exam Extremities exam: Present: warm, radial pulses palpable and symmetrical. Absent: calf tenderness, cyanotic, pedal edema - Neurological Exam Neurological exam: Present: CN II-XII intact, oriented X3, no focal deficits. Absent: pronater drift, facial droop, speech deficit - Skin Skin exam: Present: dry, intact Internal Med - H&P Results - Labs CBC & Chem 7: 03/31/19 16:12 04/01/19 04:35 Labs: Short CBC 03/31/19 Range/Units 16:12 WBC 13.8 H (4.3-11.1) K/mcL Hgb 13.3 (11.5-15.4) g/dL Hct 41.2 (35.3-44.9) % Plt Count 316 (140-400) K/mcL Neutrophils # 9.0 H (1.6-8.9) K/mcL BMP 03/31/19 04/01/19 16:12 04:35 Sodium 135 L 134 L Potassium 3.2 L 4.5 D Chloride 99 99 Carbon Dioxide 25 25 BUN 8 9 Creatinine 1.09 1.12 Glucose 29 L* 315 H Calcium 10.4 H 9.4 Liver Function 03/31/19 Range/Units 16:12 Total Bilirubin 0.4 (0.3-1.0) mg/dL AST 18 (13-39) Units/L ALT 16 (7-52) Units/L Alkaline Phosphatase 56 (34-104) Units/L Albumin 4.4 (3.5-5.7) g/dL Urine 03/31/19 Range/Units 16:35 Urine Color Yellow (Yellow) Urine Clarity Turbid A (Clear) Urine pH 6.0 (5.0-8.0) pH Units Ur Specific [place] <= 1.005 L (1.010-1.025) Urine Protein Negative (Neg-Trace) mg/dL Urine Glucose (UA) Normal (Normal) mg/dL - Impressions ITS Impressions Brain MRI 03/31/19 15:41 IMPRESSION: 1. No acute intracranial abnormality. 2. Changes of prior left occipital craniectomy and left cerebellar mass resection with increased nodular enhancement along the posterior margin of the resection cavity and surrounding parenchymal T2 hyperintensity consistent with recurrent and/or worsening residual malignancy. No significant mass effect. 3. Old right middle cerebral artery territory infarct. D/ / Juanito Hillman / Juanito Hillman Interpreting Provider: Juanito Hillman Chest X-Ray 03/31/19 15:44 IMPRESSION: No acute cardiopulmonary process identified within the chest. Nodular changes seen in the right perihilar region, with associated fiducial markers which were best evaluated on recent PET imaging on 03/16/2019. D/ / Daniel Cunningham MD / Daniel Cunningham MD Interpreting Provider: Daniel Cunningham MD
[2019-04-01] MEDS: *HR* OxyCODONE Immed Rel 5 MG TABLET PO PRN ×2 (13:19→19:54)
[2019-04-02] MEDS: Piperacillin/Tazobactam 3.375 GM in 0.9 % Sodium Chloride Mini Bag 100 ML IVPB SCH ×4 (01:00→20:43)
[2019-04-02] MEDS: *HR* OxyCODONE Immed Rel 5 MG TABLET PO PRN ×2 (04:02→15:15)
[2019-04-02] MEDS: Ascorbic Acid 500 MG TABLET PO SCH (08:59)
[2019-04-02] MEDS: hydroCHLOROthiazide 25 MG TABLET PO SCH (08:59)
[2019-04-02] MEDS: Gabapentin 400 MG CAPSULE PO SCH ×3 (08:59→20:40)
[2019-04-02] MEDS: Insulin LISPRO 300 UNITS/3 ML VIAL SQ SCH ×4 (09:00→21:34)
--- NOTE | 2019-04-02 13:39 | Internal Med Progress Note ---
Date of Encounter: 04/02/19 Time of Encounter: 10:40 - Assessment and plan (1) Urinary tract infection Current Visit: Yes Status: Acute Assessment and plan: Patient continues on Zosyn. Culture is thus far negative. Hopefully, we will have urinary culture results tomorrow or the day after. Will decide appropriate antibiotics after culture returns. Qualifiers: Urinary tract infection type: site unspecified Qualified Code(s): N39.0 - Urinary tract infection, site not specified; R31.9 - Hematuria, unspecified (2) Hypertension Current Visit: No Status: Chronic Assessment and plan: Controlled and will follow. Qualifiers: Hypertension type: unspecified Qualified Code(s): I10 - Essential (primary) hypertension (3) Hyperglycemia due to type 2 diabetes mellitus Current Visit: No Status: Chronic Assessment and plan: She has no signs of this. I discussed with her legs and we will begin Glucophage as a hopeful alternative to subcutaneous insulin on a regular basis. 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 Qualifiers: Diabetes mellitus termite control representative insulin use: with termite control representative use Diabetes mellitus complication status: with kidney complications Diabetes mellitus complication detail: with chronic kidney disease Chronic kidney disease stage: stage 3 (moderate) Qualified Code(s): E11.22 - Type 2 diabetes mellitus with diabetic chronic kidney disease; N18.3 - Chronic kidney disease, stage 3 (moderate); Z79.4 - USP (current) use of insulin (5) DVT prophylaxis Current Visit: No Status: Acute Assessment and plan: We will continue on Lovenox while hospitalized. - Subjective Interval history: Patient is without complaint. She feels much better. She denies respiratory or abdominal problems. She has now returned of appetite. Patient has no complaint of chest discomfort, dyspnea, orthopnea, palpitations, nausea or vomiting, constipation or diarrhea, other changes in bowel habits, difficulty with urination, rash or itching, or other new complaints, except as mentioned above. Review of systems is otherwise negative. I discussed management of patient's care with nursing staff. - Constitutional Vitals: Temp Pulse Resp BP Pulse Ox 98.2 F 98 16 117/70 93 04/02/19 07:38 04/02/19 07:38 04/02/19 07:38 04/02/19 07:38 04/02/19 07:38 Exam: Examination: (Except as mentioned above): General: In no apparent distress. Alert and oriented 3. Nondiaphoretic. Head: Atraumatic and normocephalic. Respiratory: No use of accessory muscles. Lungs are clear throughout. Normal airflow. Cardiovascular: Regular rate and rhythm without murmur appreciated. Abdomen: Bowel sounds are normal. No hepatosplenomegaly mass or tenderness appreciated. Obese and therefore difficult to palpate deeply. Extremities: No cyanosis clubbing or edema. Skin: Warm and non-diaphoretic with no new lesions noted. Internal Medicine: Result - Labs CBC & Chem 7: 03/31/19 16:12 04/01/19 04:35 Consult Discharge Plan - Plan Referrals: Melida Santos, VACUUM CASTER [Primary Care Provider] -
--- NOTE | 2019-04-02 13:50 | Electrocardiograph Report ---
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
[2019-04-02] MEDS: *HR* Enoxaparin 40 MG/0.4 ML SYRINGE SQ SCH (15:21)
[2019-04-02] MEDS: *HR* Metformin 500 MG TABLET PO SCH (16:54)
[2019-04-02] MEDS: Nystatin POWDER 30 GM BOTTLE TP SCH (20:42)
[2019-04-03] MEDS: Piperacillin/Tazobactam 3.375 GM in 0.9 % Sodium Chloride Mini Bag 100 ML IVPB SCH ×2 (01:59→06:28)
[2019-04-03] MEDS: *HR* Metformin 500 MG TABLET PO SCH ×2 (08:13→16:29)
[2019-04-03] MEDS: *HR* Enoxaparin 40 MG/0.4 ML SYRINGE SQ SCH (08:13)
[2019-04-03] MEDS: hydroCHLOROthiazide 25 MG TABLET PO SCH (08:13)
[2019-04-03] MEDS: Ascorbic Acid 500 MG TABLET PO SCH (08:13)
[2019-04-03] MEDS: Gabapentin 400 MG CAPSULE PO SCH ×3 (08:13→21:03)
[2019-04-03] MEDS: Nystatin POWDER 30 GM BOTTLE TP SCH ×3 (08:14→21:06)
[2019-04-03] MEDS: Insulin LISPRO 300 UNITS/3 ML VIAL SQ SCH ×4 (08:14→21:02)
[2019-04-03] MEDS ORDERED: Piperacillin/Tazobactam 3.375 GM in 0.9 % Sodium Chloride Mini Bag 100 ML IVPB SCH (16:00)
--- NOTE | 2019-04-03 16:28 | Internal Med Progress Note ---
Date of Encounter: 04/03/19 Time of Encounter: 16:26 - Assessment and plan (1) Urinary tract infection Current Visit: Yes Status: Acute Assessment and plan: Cultures returned a poly-resistant Escherichia coli. The Zosyn is effective but orally, not many drugs are. We will use Macrodantin and switch to oral. With her diarrhea, we will make sure she has not required C. difficile. If she is stable by tomorrow, will discharge. Qualifiers: Urinary tract infection type: site unspecified Qualified Code(s): N39.0 - Urinary tract infection, site not specified; R31.9 - Hematuria, unspecified (2) Hypertension Current Visit: No Status: Chronic Assessment and plan: Clinically controlled. Qualifiers: Hypertension type: unspecified Qualified Code(s): I10 - Essential (primary) hypertension (3) Type 2 diabetes mellitus Current Visit: Yes Status: Chronic Assessment and plan: Improved but will follow with sliding scale. Qualifiers: Diabetes mellitus residential insulin use: with exterminator termite use Diabetes mellitus complication status: with kidney complications Diabetes mellitus complication detail: with chronic kidney disease Chronic kidney disease stage: stage 3 (moderate) Qualified Code(s): E11.22 - Type 2 diabetes mellitus with diabetic chronic kidney disease; N18.3 - Chronic kidney disease, stage 3 (moderate); Z79.4 - assisted (current) use of insulin (4) DVT prophylaxis Current Visit: No Status: Acute Assessment and plan: We will continue Lovenox. - Subjective Interval history: Patient is without complaint. She feels well. Nursing notes that she is refusing her cough medicine. They also note that she had explosive diarrhea early this morning another episode of diarrhea, this afternoon. No hematochezia or melena. Patient denies abdominal pain, fevers, chills, sweats, dysuria, etc. No upper respiratory symptoms and breathing is going well. She denies dizziness or lightheadedness. Patient has no complaint of chest discomfort, dyspnea, orthopnea, palpitations, nausea or vomiting, constipation or diarrhea, other changes in bowel habits, difficulty with urination, rash or itching, or other new complaints, except as mentioned above. Review of systems is otherwise negative. I discussed management of patient's care with nursing staff. - Constitutional Vitals: Temp Pulse Resp BP Pulse Ox 98.3 F 81 16 119/71 96 04/03/19 06:48 04/03/19 06:48 04/03/19 06:48 04/03/19 06:48 04/03/19 06:48 Exam: Examination: (Except as mentioned above): General: In no apparent distress. Alert and oriented 3. Nondiaphoretic. Head: Atraumatic and normocephalic. Respiratory: No use of accessory muscles. Lungs are clear throughout. Normal airflow. Cardiovascular: Regular rate and rhythm without murmur appreciated. Abdomen: Bowel sounds are normal. No hepatosplenomegaly mass or tenderness appreciated. Obese and therefore difficult to palpate deeply. Patient is examined upright in chair and this also limits exam. Extremities: No cyanosis clubbing or edema. Skin: Warm and non-diaphoretic with no new lesions noted. Internal Medicine: Result - Labs CBC & Chem 7: 03/31/19 16:12 04/01/19 04:35 Consult Discharge Plan - Plan Referrals: Melida Santos CNP [Primary Care Provider] -
[2019-04-03] MEDS: *HR* OxyCODONE Immed Rel 5 MG TABLET PO PRN (16:29)
[2019-04-04] MEDS: *HR* OxyCODONE Immed Rel 5 MG TABLET PO PRN (03:58)
[2019-04-04 07:18] VITALS: BP 162/85
[2019-04-04] MEDS: *HR* Enoxaparin 40 MG/0.4 ML SYRINGE SQ SCH (08:06)
[2019-04-04] MEDS: Gabapentin 400 MG CAPSULE PO SCH (08:07)
[2019-04-04] MEDS: Ascorbic Acid 500 MG TABLET PO SCH (08:07)
[2019-04-04] MEDS: hydroCHLOROthiazide 25 MG TABLET PO SCH (08:07)
[2019-04-04] MEDS: *HR* Metformin 500 MG TABLET PO SCH (08:07)
[2019-04-04] MEDS: Nystatin POWDER 30 GM BOTTLE TP SCH (08:08)
[2019-04-04] MEDS: Insulin LISPRO 300 UNITS/3 ML VIAL SQ SCH (08:11)
--- NOTE | 2019-04-04 10:01 | Discharge Summary ---
- NOTES TO OUTPATIENT PROVIDER Notes to Outpatient Provider: Have discontinued her insulin as she has little understanding about how to manage and had severe hypoglycemia. Orders not resulted at time of discharge: Pending orders 03/31/19 16:00 Culture,Blood [BC] Stat 04/03/19 12:35 Hgb A1C Routine Date of Encounter: 04/04/19 Time of Encounter: 09:59 - Discharge Diagnosis (1) Urinary tract infection Priority: Primary Status: Acute Comments: She has a relatively resistant Escherichia coli but will discharge with oral nitrofurantoin which should cover. Qualifiers: Urinary tract infection type: site unspecified Qualified Code(s): N39.0 - Urinary tract infection, site not specified; R31.9 - Hematuria, unspecified (2) Hypertension Priority: Secondary Status: Chronic Qualifiers: Hypertension type: essential hypertension Qualified Code(s): I10 - Essential (primary) hypertension (3) Type 2 diabetes mellitus Priority: Secondary Status: Chronic Comments: Had marked hypoglycemia (to as low as 29) and will discontinue her insulin for this reason. Qualifiers: Diabetes mellitus usp insulin use: with usp use Diabetes mellitus complication status: with kidney complications Diabetes mellitus complication detail: with chronic kidney disease Chronic kidney disease stage: stage 3 (moderate) Qualified Code(s): E11.22 - Type 2 diabetes mellitus with diabetic chronic kidney disease; N18.3 - Chronic kidney disease, stage 3 (moderate); Z79.4 - assisted (current) use of insulin Hospital course: Ms. Richards is a 74 year old female who presented with hypoglycemia. After de-25 in the emergency room she improved but was almost immediately even worse, in terms of hypoglycemia. This resolved and she seemed to be doing better. She was slightly confused even though oriented. However she became more confused upon admission and was markedly febrile to over 103 degrees. She was found to have urinary tract infection with sepsis. She was placed on Zosyn and improved immediately. Cultures revealed Escherichia coli which was resistant to multiple antibiotics. She was discharged on oral nitrofurantoin. She denies problems overnight. She is feeling fine and her questions were answered. She was instructed to avoid white starches and to decrease her intake of carbohydrates, in general. She is totally avoid sugar and she expresses understanding. Diarrhea has subsided as of yesterday. Patient has no complaint of chest discomfort, dyspnea, orthopnea, palpitations, nausea or vomiting, constipation or diarrhea, other changes in bowel habits, difficulty with urination, rash or itching, or other new complaints, except as mentioned above. Review of systems is otherwise negative. I discussed management of patient's care with nursing staff. Discharge discussed with: patient - Time Spent with Patient Total time spent providing and/or coordinating discharge services: - Discharge Medications Prescriptions: Discontinued Insulin LISPRO [HumaLOG] 0 units SQ TIDAC vial Insulin LISPRO [HumaLOG] 25 units SQ HS GuaiFENesin/Dextromethorphan [Robitussin/DM] 5 ml PO Q6HR #118 syrup No Action Atorvastatin Calcium 80 mg PO HS Doxepin HCl 50 mg PO HS Docusate Sodium [Colace] 100 mg PO BID Carvedilol [Coreg] 6.25 mg PO BIDWM Famotidine [Heartburn Prevention] 20 mg PO Q12H Pantoprazole Sodium [Protonix] 40 mg PO HS Oxycodone HCl [Roxybond] 5 mg PO Q6H PRN PRN Reason: Pain Hydroxyzine HCl 5 - 10 mg PO Q12H PRN PRN Reason: Anxiety Morphine Sulfate [Morphine Sulfate ER] 15 mg PO BID Hydrochlorothiazide [Microzide] 12.5 mg PO DAILY Aspirin [Lo-Dose Aspirin EC] 81 mg PO DAILY Ferrous Sulfate 325 mg PO DAILY #30 tablet Ascorbic Acid [Vitamin C] 500 mg PO DAILY #30 tablet Montelukast [Singulair] 10 mg PO HS Gabapentin [Neurontin] 400 mg PO TID Ergocalciferol (VITAMIN D2) [Vitamin D2] 50,000 unit PO QWEEK Home Medications: Ergocalciferol (VITAMIN D2) [Vitamin D2] 50,000 unit PO QWEEK 06/15/18 [History] Gabapentin [Neurontin] 400 mg PO TID 06/15/18 [History] Montelukast [Singulair] 10 mg PO HS 06/15/18 [History] Atorvastatin Calcium 80 mg PO HS 06/28/18 [History] Doxepin HCl 50 mg PO HS 06/28/18 [History] Carvedilol [Coreg] 6.25 mg PO BIDWM 07/27/18 [History] Docusate Sodium [Colace] 100 mg PO BID 10/16/18 [History] Famotidine [Heartburn Prevention] 20 mg PO Q12H 07/27/18 [History] Hydroxyzine HCl 5 - 10 mg PO Q12H PRN 07/30/18 [History] Oxycodone HCl [Roxybond] 5 mg PO Q6H PRN 07/30/18 [History] Pantoprazole Sodium [Protonix] 40 mg PO HS 07/30/18 [History] Aspirin [Lo-Dose Aspirin EC] 81 mg PO DAILY 11/09/18 [History] Hydrochlorothiazide [Microzide] 12.5 mg PO DAILY 11/09/18 [History] Morphine Sulfate [Morphine Sulfate ER] 15 mg PO BID 11/09/18 [History] Ascorbic Acid [Vitamin C] 500 mg PO DAILY #30 tablet 02/16/19 [Rx] Ferrous Sulfate 325 mg PO DAILY #30 tablet 02/16/19 [Rx] Allergies/Adverse Reactions: Allergy/AdvReac Type Severity Reaction Status Date / Time Iodinated Contrast- Oral and Allergy Rash Verified 02/16/19 14:47 IV Dye iron Allergy Hives Verified 02/16/19 14:47 [place] Allergy Nausea Verified 02/16/19 14:47 Sulfa (Sulfonamide Allergy Hives Verified 02/16/19 14:47 Antibiotics) adhesive tape AdvReac Rash Verified 02/16/19 14:47 Date of admission: 03/31/19 18:24 Primary care physician: Melida Santos, CUSTOMER SERVICE ADVISOR Consults: 03/31/19 18:12 Consult to Claims Adjustor [CONS] Routine Reason for Consult: unsure if still safe at home Discharging clinician: Giancarlo Harkins Anticipated date of discharge: 04/04/19 - Constitutional Vitals: Temp Pulse Resp BP Pulse Ox 98.3 F 86 16 162/85 94 04/04/19 07:17 04/04/19 07:17 04/04/19 07:17 04/04/19 07:17 04/04/19 07:17 Exam: Examination: (Except as mentioned above): General: In no apparent distress. Alert and oriented 3. Nondiaphoretic. Head: Atraumatic and normocephalic. Respiratory: No use of accessory muscles. Lungs are clear throughout. Normal airflow. Cardiovascular: Regular rate and rhythm without murmur appreciated. Abdomen: Bowel sounds are normal. No hepatosplenomegaly mass or tenderness appreciated. Obese and therefore difficult to palpate deeply. Extremities: No cyanosis clubbing or edema. Skin: Warm and non-diaphoretic with no new lesions noted. - Patient Status Disposition: Home Health Service Condition: Good Functional capacity at discharge: independent ambulation Overall status at discharge: patient is back to baseline - Discharge Instructions Follow Up With: Melida Santos CNP [Primary Care Provider] - - Diet and Activity Diet: diabetic diet, low salt diet
[2019-04-04 14:06] LABS: Estimated Average Glucose 192 mg/dl
== END 2019-04-04 11:49 | disposition home health service (06) ==
LOC: INPGRE 14:20 → EMEROOGRE 14:20 → INPGRE 18:40

== ENCOUNTER 2019-05-11 14:38 | Inpatient (IN) ==
[2019-05-12] MEDS ORDERED: Acetaminophen 325 MG TABLET PO PRN (15:54)
[2019-05-12] MEDS ORDERED: Mag Hydrox/Al Hydrox/Simeth 30 ML UDC PO PRN (15:55)
[2019-05-12] MEDS ORDERED: Ondansetron ODT 4 MG TAB.RAPDIS SL PRN (15:55)
[2019-05-12] MEDS ORDERED: D5% in Water 1,000 ML IVC PRN (16:08)
[2019-05-12] MEDS ORDERED: *HR* Dextrose 50 % in Water (Syg) 50 ML SYRINGE IVP PRN (16:08)
[2019-05-12] MEDS ORDERED: Dextrose Gel 15 GM/37.5 ML TUBE PO PRN ×2 (16:08)
[2019-05-12] MEDS: *HR* Metformin 500 MG TABLET PO SCH (17:34)
[2019-05-12] MEDS: Famotidine 20 MG TABLET PO SCH (17:34)
[2019-05-12] MEDS: Insulin LISPRO 300 UNITS/3 ML VIAL SQ SCH ×2 (17:35→22:34)
[2019-05-12] MEDS: Gabapentin 300 MG CAPSULE PO SCH (22:33)
[2019-05-12] MEDS: *HR* OxyCODONE Immed Rel 5 MG TABLET PO PRN (22:34)
[2019-05-13] MEDS ORDERED: Morphine Sulfate ER (12 HR) 15 MG TABLET.ER PO SCH (02:00)
[2019-05-13 05:06] LABS: Basophils % 0.4 %; Eosinophils # 0.3 K/mcL (0.0-0.6); Eosinophils % 3.4 %; Hematocrit 36.5 % (35.3-44.9); Hemoglobin 11.8 g/dL (11.5-15.4); Immature Granulocytes % 0.2 % (0-4); Lymphocytes # 2.7 K/mcL (0.6-4.6); Lymphocytes % 27.2 %; Mean Corpuscular HGB Conc 32.3 g/dL (31.6-35.5); Mean Corpuscular Hemoglobin 28.2 pg (28.0-33.3); Mean Corpuscular Volume 87.3 fL (83.0-100.0); Mean Platelet Volume 10.1 fL (9.4-12.4); Monocytes # 0.6 K/mcL (0.0-1.3); Monocytes % 6.5 %; Neutrophils # 6.1 K/mcL (1.6-8.9); Platelet Count 230 K/mcL (140-400); Red Blood Count 4.18 M/mcL (3.82-4.97); Segmented Neutrophils % 62.3 %; White Blood Count 9.8 K/mcL (4.3-11.1)
[2019-05-13 05:11] LABS: INR 1.1; Prothrombin Time 12.4 Seconds (9.4-12.1)
[2019-05-13 05:14] LABS: Activated Partial Thrombo Time 30.7 Seconds (26.0-36.0)
[2019-05-13 05:22] LABS: Albumin 3.4 g/dL (3.5-5.7); Albumin/Globulin Ratio 1.2 (1.1-2.2); Bilirubin,Total 0.5 mg/dL (0.3-1.0); Calcium 9.8 mg/dL (8.6-10.3); Globulin 2.9 g/dL (2.4-3.5); Magnesium 1.5 mg/dL (1.6-2.6); Potassium 4.2 mEq/L (3.5-5.1); Total Protein 6.3 g/dL (6.4-8.9)
[2019-05-13] MEDS: Famotidine 20 MG TABLET PO SCH ×2 (06:41→18:02)
[2019-05-13] MEDS: *HR* Enoxaparin 40 MG/0.4 ML SYRINGE SQ SCH (06:41)
[2019-05-13] MEDS: Morphine Sulfate ER (12 HR) 15 MG TABLET.ER PO SCH ×2 (06:42→18:02)
[2019-05-13] MEDS: *HR* Metformin 500 MG TABLET PO SCH ×2 (09:53→18:02)
[2019-05-13] MEDS: Gabapentin 300 MG CAPSULE PO SCH ×3 (09:54→20:59)
[2019-05-13] MEDS: Aspirin Enteric Coated 81 MG Tablet PO SCH (09:54)
[2019-05-13] MEDS: Insulin LISPRO 300 UNITS/3 ML VIAL SQ SCH ×4 (09:54→21:00)
--- NOTE | 2019-05-13 12:38 | Internal Med History&Physical ---
Date of Encounter: 05/13/19 Time of Encounter: 12:34 Assessment and Plan (1) Cancer of right lung Current visit: Yes Status: Chronic Patient was transferred to this facility after experiencing acute on chronic kidney failure and increasing weakness over the past several days resulting in falls. Patient's recovery was uneventful at previous facility and she was transferred to this facility for further rehabilitation due to her generalized weakness. Patient was evaluated by oncology and [facility], who determined that her primary care will be to return to [facility] for further treatment. Patient currently denies any discomforts, dyspnea or productive cough. Therapy evaluation pending with recommendations. 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 Patient has been followed by oncology and [facility] with the current treatment plan is for her to return to [facility] for further evaluation and treatment. She currently shows no neurological deficits noted on exam. We will continue with current therapy and with follow-up with oncology Qualifiers: Malignant neoplasm of brain location: cerebellum Qualified Code(s): C71.6 - Malignant neoplasm of cerebellum (3) Type 2 diabetes mellitus Current visit: No Status: Chronic No acute issues at this time. Patient's glucose has been fairly well controlled with fingersticks reading less than 200. We will continue with current coverage Qualifiers: Diabetes mellitus predatory animal exterminator insulin use: with predatory animal exterminator use Diabetes mellitus complication status: with kidney complications Diabetes mellitus complication detail: with chronic kidney disease Chronic kidney disease stage: stage 3 (moderate) Qualified Code(s): E11.22 - Type 2 diabetes mellitus with diabetic chronic kidney disease; N18.3 - Chronic kidney disease, stage 3 (mo derate); Z79.4 - snf (current) use of insulin (4) COPD (chronic obstructive pulmonary disease) Current visit: No Status: Chronic No acute issues. Patient's lungs are clear throughout but noted diminished basilar rowe. No productive cough. No dyspnea or hypoxia noted. Patient will continue with when necessary oxygen. Continue with current therapy Qualifiers: COPD type: emphysema Emphysema type: centrilobular Qualified Code(s): J4 3.2 - Centrilobular emphysema (5) Chronic kidney disease, stage IV (severe) Current visit: No Status: Chronic No acute issues. Patient's most recent creatinine is at 1.24. We will continue to monitor patient's renal status with serial labs. (6) CAD (coronary artery disease) Current visit: No Status: Chronic No acute issues. Patient denies any chest discomforts or palpitations. Vital signs stable. We will continue with current medications. Qualifiers: Coronary Disease-Associated Artery/Lesion type: [place] artery [place] vs. transplanted heart: [place] heart Associated angina: without angina Qualified Code(s): I25.10 - Atherosclerotic heart disease of [place] coronary artery without angina pectoris Internal Medicine - H&P: HPI Chief complaint: weakness Admitted From: Hospital to Hospital Transfer Plans for Post Hospital Care: Home History of present illness: Ms. Richards is a 74 year old female with history of metastatic lung cancer to brain s/p resection in 07/2018, but with recurrence in 03/2019. 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 Patient reports several falls at home prior to admission. MRI brain only showed stable, known recurrent brain mets at the resection foci compared to the study done on 03/2019. HCTZ was held and Cr improved with IVF. A consultation with oncology was placed, who in turn review the case with radiation oncology, and the decision was made to refer her back to [facility] for consideration of SRS. She was recommended to be transferred to [facility] for further rehab due to her gernalized weakness. Patient currently denies any discomforts or shortness of breath. Patient denies any acute neurological deficits or visual changes. Past Med Surg Social Fam HX - Past Medical History Medical history: cancer, CHF, coronary artery disease, CVA, diabetes, fibromyalgia, GERD, hyperlipidemia, hypertension, myocardial infarction, osteoporosis, renal disease, syncope, other Additional medical history: CHRONIC BACK/KNEE PAIN, Brain Cancer, Lung Cancer, Cervical Cancer Psychiatric history: anxiety, bipolar, depression - Past Surgical History Surgical History: angioplasty/stent, appendectomy, cancer surgery, cholec ystectomy, hysterectomy Additional surgical history: 6 cardiac stents. - Social History Smoking Status: Former smoker Smokeless Tobacco Status: No Alcohol use: none Drug use: none - Family History Mother Living Status: Sister Living Status: Hx Family Cardiac Disorders: Yes Hx Family Respiratory Disorders: Yes (Lung cancer) Brother Adopted: No Family Member Ethnicity: Non- Living Status: Still Living Hx Family Cardiac Disorders: Yes Hx Family Respiratory Disorders: Yes Hx Family Cancer: Yes Hx Family GI Disorders: No Hx Family Endocrine Disorder: No Hx Family Neuromuscular Disorders: No Hx Family Neurologic Disorders: No Hx Family HEENT Disorders: No Hx Family Autoimmune Disorders: No Father Adopted: No Family Member Ethnicity: Non- Living Status: Hx Family Cardiac Disorders: Yes Hx Family Respiratory Disorders: No Hx Family Cancer: No Hx Family GI Disorders: No Hx Family Endocrine Disorder: No Hx Family Neuromuscular Disorders: No Hx Family Neurologic Disorders: No Hx Family HEENT Disorders: No Hx Family Autoimmune Disorders: No Internal Medicine - H&P: Meds Montelukast [Singulair] 10 mg PO HS 06/15/18 [History] Atorvastatin Calcium 80 mg PO HS 06/28/18 [History] Doxepin HCl 50 mg PO HS 06/28/18 [History] Famotidine [Heartburn Prevention] 20 mg PO Q12H 07/27/18 [History] Oxycodone HCl [Roxybond] 5 mg PO Q8H PRN 07/30/18 [History] Pantoprazole Sodium [Protonix] 40 mg PO HS 07/30/18 [History] Aspirin [Lo-Dose Aspirin EC] 81 mg PO DAILY 11/09/18 [History] metFORMIN [Glucophage] 500 mg PO BIDWM #60 tablet 04/04/19 [Rx] Dicyclomine [Bentyl] 10 mg PO QID 05/07/19 [History] Gabapentin 600 mg PO TID 05/07/19 [History] Morphine Sulfate ER (12 HR) [MS Contin] 15 mg PO Q12H 05/07/19 [History] Carvedilol [Coreg] 12.5 mg PO BID #30 tablet 05/11/19 [Rx] Allergy/AdvReac Type Severity Reaction Status Date / Time Iodinated Contrast- Oral and Allergy Rash Verified 05/07/19 16:46 IV Dye iron Allergy Hives Verified 05/07/19 16:46 [place] Allergy Nausea Verified 05/07/19 16:46 Sulfa (Sulfonamide Allergy Hives Verified 05/07/19 16:46 Antibiotics) adhesive tape AdvReac Rash Verified 05/07/19 16:46 All Systems PM: A 10-system review of systems was performed and is negative for pertinent findings except as documented above in the HPI. - Constitutional Constitutional: as per HPI, no chills, no fever(s), no night sweats - EENT Eyes: as per HPI, no change in vision, no discharge, no pain, no photophobia Ears: as per HPI, no ear discharge, no ear pain, no tinnitus Nose, mouth and throat: as per HPI, no dysphagia, no nasal discharge, no neck pain, no sore throat - Breasts Breasts: as per HPI - Cardiovascular Cardiovascular ROS IM: as per HPI, no chest pain, no diaphoresis, no dyspnea, no lightheadedness, no palpitations, no syncope - Respiratory Respiratory: as per HPI, no cough, no dyspnea, no wheezing, no excessive phlegm production - Gastrointestinal Gastrointestinal: as per HPI, no abdominal pain, no diarrhea, no hematemesis, no hematochezia, no melena, no nausea, no vomiting - Genitourinary Genitourinary: as per HPI, no change in urinary stream, no dysuria, no flank pain, no hematuria - Musculoskeletal Musculoskeletal ROS IM: as per HPI, no numbness, no tingling - Integumentary Integumentary IM: as per HPI, no rash, no unusual bruising - Neurological Neurological ROS: as per HPI, no confusion, no convulsions, no focal weakness, no numbness, no tingling, no tremor(s) - Psychiatric Psychiatric: as per HPI, anxiety - Hematologic/Lymphatic Hematologic/Lymphatic: no easy bruising - Constitutional Vitals: Temp Pulse Resp BP Pulse Ox 97.7 F 85 14 101/67 95 05/13/19 03:48 05/13/19 11:59 05/13/19 11:59 05/13/19 11:59 05/13/19 11:59 General appearance: Present: A&O X 3, pleasant - Head Head exam: Present: atraumatic, normocephalic - Eye Eye exam: Present: PERRL, conjuntiva pink, sclera anicteric Pupils: Present: PERRL - Neck Neck exam general surgery: Present: supple, trachea midline. Absent: lymphadenopathy - Respiratory Respiratory exam: Present: decreased breath sounds, CTAB. Absent: accessory muscle use, rales, rhonchi, wheezes - Cardiovascular Cardiovascular exam: Present: RRR, +S1, +S2. Absent: diastolic murmur, gallop, rubs, systolic murmur - GI/Abdominal GI/Abdominal exam: Present: normal bowel sounds, soft, no peritoneal signs. Absent: distended, tenderness - Extremities Exam Extremities exam: Present: warm, radial pulses palpable and symmetrical. Absent: calf tenderness, cyanotic, pedal edema - Neurological Exam Neurological exam: Present: CN II-XII intact, oriented X3, no focal deficits. Absent: pronater drift, facial droop, speech deficit - Skin Skin exam: Present: dry, intact Internal Med - H&P Results - Labs CBC & Chem 7: 05/13/19 04:33 05/13/19 04:33 Labs: Short CBC 05/13/19 Range/Units 04:33 WBC 9.8 D (4.3-11.1) K/mcL Hgb 11.8 (11.5-15.4) g/dL Hct 36.5 (35.3-44.9) % Plt Count 230 (140-400) K/mcL Neutrophils # 6.1 (1.6-8.9) K/mcL BMP 05/13/19 04:33 Sodium 129 L Potassium 4.2 Chloride 98 Carbon Dioxide 26 BUN 17 Creatinine 1.24 H Glucose 137 H Calcium 9.8 Liver Function 05/13/19 Range/Units 04:33 Total Bilirubin 0.5 (0.3-1.0) mg/dL AST 14 (13-39) Units/L ALT 12 (7-52) Units/L Alkaline Phosphatase 39 (34-104) Units/L Albumin 3.4 L (3.5-5.7) g/dL
[2019-05-14] MEDS: Morphine Sulfate ER (12 HR) 15 MG TABLET.ER PO SCH ×2 (04:57→17:51)
[2019-05-14] MEDS: *HR* Enoxaparin 40 MG/0.4 ML SYRINGE SQ SCH (04:57)
[2019-05-14] MEDS: Famotidine 20 MG TABLET PO SCH ×2 (04:57→17:51)
[2019-05-14] MEDS: Gabapentin 300 MG CAPSULE PO SCH ×3 (09:33→21:42)
[2019-05-14] MEDS: Aspirin Enteric Coated 81 MG Tablet PO SCH (09:34)
[2019-05-14] MEDS: *HR* Metformin 500 MG TABLET PO SCH ×2 (09:34→17:51)
[2019-05-14] MEDS: Insulin LISPRO 300 UNITS/3 ML VIAL SQ SCH ×4 (10:17→22:01)
--- NOTE | 2019-05-14 13:22 | Internal Med Progress Note ---
Date of Encounter: 05/15/19 Time of Encounter: 12:30 - Subjective Interval history: Assessment and Plan (1) Cancer of right lung Current visit: Yes Status: Chronic Patient was transferred to this facility after experiencing acute on chronic kidney failure and increasing weakness over the past several days resulting in falls. Patient's recovery was uneventful at previous facility and she was transferred to this facility for further rehabilitation due to her generalized weakness. Patient was evaluated by oncology and [facility], who determined that her primary care will be to return to [facility] for further treatment. Patient currently denies any discomforts, dyspnea or productive cough. 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 Patient has been followed by oncology and [facility] with the current treatment plan is for her to return to [facility] for further evaluation and treatment. She currently shows no neurological deficits noted on exam. We will continue with current therapy and with follow-up with oncology Qualifiers: Malignant neoplasm of brain location: cerebellum Qualified Code(s): C71.6 - Malignant neoplasm of cerebellum (3) Type 2 diabetes mellitus Current visit: No Status: Chronic No acute issues at this time. Patient's glucose has been fairly well controlled with fingersticks reading less than 200. 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 Patient's lungs are clear throughout but noted diminished basilar rowe. No productive cough. No dyspnea or hypoxia noted. Patient w ill continue with when necessary oxygen. Continue with current therapy Qualifiers: COPD type: emphysema Emphysema type: centrilobular Qualified Code(s): J43.2 - Centrilobular emphysema (5) Chronic kidney disease, stage IV (severe) Current visit: No Status: Chronic No acute issues. Patient's most recent creatinine is at 1.24. We will continue to monitor patient's renal status with serial labs. (6) CAD (coronary artery disease) Current visit: No Status: Chronic No acute issues. Patient denies any chest discomforts or palpitations. Vital signs stable. We will continue with current medications. Qualifiers: Coronary Disease-Associated Artery/Lesion type: [place] artery [place] vs. transplanted heart: [place] heart Associated angina: without angina Qualified Code(s): I25.10 - Atherosclerotic heart disease of [place] coronary artery without angina pectoris Inteval History Ms. Richards is a 74 year old female with history of metastatic lung cancer to brain s/p resection in 07/2018, but with recurrence in 03/2019. 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 Patient reports several falls at home prior to admission. MRI brain only showed stable, known recurrent brain mets at the resection foci compared to the study done on 03/2019. HCTZ was held and Cr improved with IVF. A consultation with oncology was placed, who in turn review the case with radiation oncology, and the decision was made to refer her back to [facility] for consideration of SRS. She was recommended to be transferred to [facility] bed for further rehab due to her gernalized weakness. Patient currently denies any discomforts or shortness of breath. Patient denies any acute neurological deficits or visual changes. - EXAM General appearance: Present: A&O X 3, pleasant - Head Head exam: Present: atraumatic, normocephalic - Eye Eye exam: Present: PERRL, conjuntiva pink, sclera anicteric Pupils: Present: PERRL - Neck Neck exam general surgery: Present: supple, trachea midline. Absent: lymphadenopathy - Respiratory Respiratory exam: Present: decreased breath sounds, CTAB. Absent: accessory mu scle use, rales, rhonchi, wheezes - Cardiovascular Cardiovascular exam: Present: RRR, +S1, +S2. Absent: diastolic murmur, gallop, rubs, systolic murmur - GI/Abdominal GI/Abdominal exam: Present: normal bowel sounds, soft, no peritoneal signs. Absent: distended, tenderness - Extremities Exam Extremities exam: Present: warm, radial pulses palpable and symmetrical. Absent: calf tenderness, cyanotic, pedal edema - Neurological Exam Neurological exam: Present: CN II-XII intact, oriented X3, no focal deficits. Absent: pronater drift, facial droop, speech deficit - Skin Skin exam: Present: dry, intact - Constitutional Vitals: Temp Pulse Resp BP Pulse Ox 98.1 F 59 15 95/55 95 05/14/19 08:39 05/14/19 08:39 05/14/19 08:39 05/14/19 08:39 05/14/19 08:39 General appearance: Present: A&O X 3, pleasant Internal Medicine: Result - Labs CBC & Chem 7: 05/13/19 04:33 05/13/19 04:33 - ABG Interpretation ABG results: PT/INR, D-dimer PT 12.4 Seconds (9.4-12.1) H 05/13/19 04:33 Consult Discharge Plan - Plan Referrals: Melida Santos, ACTIVITIES OFFICER [Primary Care Provider] -
[2019-05-14] MEDS: *HR* OxyCODONE Immed Rel 5 MG TABLET PO PRN (21:42)
[2019-05-15] MEDS: *HR* Enoxaparin 40 MG/0.4 ML SYRINGE SQ SCH (05:31)
[2019-05-15] MEDS: Morphine Sulfate ER (12 HR) 15 MG TABLET.ER PO SCH ×2 (05:31→17:00)
[2019-05-15] MEDS: Famotidine 20 MG TABLET PO SCH ×2 (05:31→17:00)
[2019-05-15] MEDS: Insulin LISPRO 300 UNITS/3 ML VIAL SQ SCH ×4 (08:50→23:17)
[2019-05-15] MEDS: Gabapentin 300 MG CAPSULE PO SCH ×3 (09:07→23:23)
[2019-05-15] MEDS: *HR* Metformin 500 MG TABLET PO SCH ×2 (09:08→16:59)
[2019-05-15] MEDS: Aspirin Enteric Coated 81 MG Tablet PO SCH (09:08)
--- NOTE | 2019-05-15 16:33 | Internal Med Progress Note ---
Date of Encounter: 05/15/19 Time of Encounter: 16:10 - Subjective Interval history: Assessment and Plan (1) Cancer of right lung Current visit: Yes Status: Chronic Patient was transferred to this facility after experiencing acute on chronic kidney failure and increasing weakness over the past several days resulting in falls. Patient's recovery was uneventful at previous facility and she was transferred to this facility for further rehabilitation due to her generalized weakness. Patient was evaluated by oncology and [facility], who determined that her primary care will be to return to [facility] for further treatment. Patient currently denies any discomforts, dyspnea or productive cough. 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 Patient has been followed by oncology and [facility] with the current treatment plan is for her to return to [facility] for further evaluation and treatment. She currently shows no neurological deficits noted on exam. We will continue with current therapy and with follow-up with oncology Qualifiers: Malignant neoplasm of brain location: cerebellum Qualified Code(s): C71.6 - Malignant neoplasm of cerebellum (3) Type 2 diabetes mellitus Current visit: No Status: Chronic No acute issues at this time. Patient's glucose has been fairly well controlled with fingersticks reading less than 200. We will continue with current coverage Qualifiers: Diabetes mellitus correction insulin use: with correction use Diabetes mellitus complication status: with kidney complications Diabetes mellitus complication detail: with chronic kidney disease Chronic kidney disease stage: stage 3 (moderate) Qualified Code(s): E11.22 - Type 2 diabetes mellitus with diabetic chronic kidney disease; N18.3 - Chronic kidney disease, stage 3 (moderate); Z79.4 - residential (current) use of insulin (4) COPD (chronic obstructive pulmonary disease) Current visit: No Status: Chronic No acute issues. Patient's lungs are clear throughout but noted diminished basilar rowe. No productive cough. No dyspnea or hypoxia noted. Patient will continue with when necessary oxygen. Continue with current therapy Qualifiers: COPD type: emphysema Emphysema type: centrilobular Qualified Code(s): J43.2 - Centrilobular emphysema (5) Chronic kidney disease, stage IV (severe) Current visit: No Status: Chronic No acute issues. Patient's most recent creatinine is at 1.24. We will continue to monitor patient's renal status with serial labs. (6) CAD (coronary artery disease) Current visit: No Status: Chronic No acute issues. Patient denies any chest discomforts or palpitations. Vital signs stable. We will continue with current medications. Qualifiers: Coronary Disease-Associated Artery/Lesion type: [place] artery [place] vs. transplanted heart: [place] heart Associated angina: without angina Qualified Code(s): I25.10 - Atherosclerotic heart disease of [place] coronary artery without angina pectoris Inteval History Ms. Richards is a 74 year old female with history of metastatic lung cancer to brain s/p resection in 07/2018, but with recurrence in 03/2019. 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 Patient reports several falls at home prior to admission. MRI brain only showed stable, known recurrent brain mets at the resection foci compared to the study done on 03/2019. HCTZ was held and Cr improved with IVF. A consultation with oncology was placed, who in turn review the case with radiation oncology, and the decision was made to refer her back to [facility] for consideration of SRS. She was recommended to be transferred to [facility] for further rehab due to her gernalized weakness. Patient currently denies any discomforts or shortness of breath. Her mood is down at times. Patient denies any acute neurological deficits or visual changes. - EXAM General appearance: Present: A&O X 3, pleasant - Head Head exam: Present: atraumatic, normocephalic - Eye Eye exam: Present: PERRL, conjuntiva pink, sclera anicteric Pupils: Present: PERRL - Neck Neck exam general surgery: Present: supple, trachea midline. Absent: lymphadenopathy - Respiratory Respiratory exam: Present: decreased breath sounds, CTAB. Absent: accessory muscle use, rales, rhonchi, wheezes - Cardiovascular Cardiovascular exam: Present: RRR, +S1, +S2. Absent: diastolic murmur, gallop, rubs, systolic murmur - GI/Abdominal GI/Abdominal exam: Present: normal bowel sounds, soft, no peritoneal signs. Absent: distended, tenderness - Extremities Exam Extremities exam: Present: warm, radial pulses palpable and symmetrical. Absent: calf tenderness, cyanotic, pedal edema - Neurological Exam Neurological exam: Present: CN II-XII intact, oriented X3, no focal deficits. Absent: pronater drift, facial droop, speech deficit - Skin Skin exam: Present: dry, intact - Constitutional Vitals: Temp Pulse Resp BP Pulse Ox 98.2 F 84 16 125/74 97 05/15/19 08:55 05/15/19 08:55 05/15/19 08:55 05/15/19 08:55 05/15/19 08:55 General appearance: Present: A&O X 3, pleasant Internal Medicine: Result - Labs CBC & Chem 7: 05/13/19 04:33 05/13/19 04:33 - ABG Interpretation ABG results: PT/INR, D-dimer PT 12.4 Seconds (9.4-12.1) H 05/13/19 04:33 Consult Discharge Plan - Plan Referrals: Meldia Santos, WIRE STRIPPER [Primary Care Provider] -
[2019-05-15] MEDS: *HR* OxyCODONE Immed Rel 5 MG TABLET PO PRN (23:19)
[2019-05-16] MEDS: *HR* Enoxaparin 40 MG/0.4 ML SYRINGE SQ SCH (05:50)
[2019-05-16] MEDS: Morphine Sulfate ER (12 HR) 15 MG TABLET.ER PO SCH ×2 (05:50→17:10)
[2019-05-16] MEDS: Famotidine 20 MG TABLET PO SCH ×2 (05:50→17:10)
[2019-05-16] MEDS: Insulin LISPRO 300 UNITS/3 ML VIAL SQ SCH ×2 (08:07→13:26)
[2019-05-16] MEDS: Gabapentin 300 MG CAPSULE PO SCH ×3 (09:02→21:42)
[2019-05-16] MEDS: *HR* Metformin 500 MG TABLET PO SCH ×2 (09:02→17:11)
[2019-05-16] MEDS: Aspirin Enteric Coated 81 MG Tablet PO SCH (09:02)
--- NOTE | 2019-05-16 09:54 | Internal Med Progress Note ---
Date of Encounter: 05/16/19 Time of Encounter: 09:49 - Assessment and plan (1) Cancer of right lung Current Visit: Yes Status: Chronic Assessment and plan: Patient with history of stage IV lung CA with recurrence of metastasis to the brain. Patient currently is without dyspnea or productive cough. We will continue with current medications. Patient to continue with physical therapy which she states is going well. Qualifiers: Lung location: hilum of lung Qualified Code(s): C34.01 - Malignant neoplasm of right main bronchus (2) Brain cancer Current Visit: Yes Status: Inactive Assessment and plan: No acute issues. Nursing is reported patient has had episodes of hallucinations over the weekend and at times can be slightly confused. Currently patient is appropriate with conversation. No focal neurological deficits noted on exam. We will continue with current plan of care Qualifiers: Malignant neoplasm of brain location: cerebellum Qualified Code(s): C71.6 - Malignant neoplasm of cerebellum (3) Type 2 diabetes mellitus Current Visit: Yes Status: Chronic Assessment and plan: No acute issues. Patient's glucoses been well-controlled with fingersticks remained less than 150. We will continue with current medication coverage. Qualifiers: Diabetes mellitus senior living insulin use: with intermediate manager use Diabetes mellitus complication status: with kidney complications Diabetes mellitus complication detail: with chronic kidney disease Chronic kidney disease stage: stage 3 (moderate) Qualified Code(s): E11.22 - Type 2 diabetes mellitus with diabetic chronic kidney disease; N18.3 - Chronic kidney disease, stage 3 (moderate); Z79.4 - exterminator termite (current) use of insulin (4) COPD (chronic obstructive pulmonary disease) Current Visit: Yes Status: Chronic Assessment and plan: No acute issues. Patient denies any dyspnea or productive cough. Lungs are diminished throughout lower fills but otherwise clear. We will continue with current medications and continue with therapy Qualifiers: COPD type: emphysema Emphysema type: centrilobular Qualified Code(s): J43.2 - Centrilobular emphysema (5) Chronic kidney disease, stage IV (severe) Current Visit: No Status: Chronic Assessment and plan: No acute issues. Patient's most recent creatinine is 1.24. We will continue to monitor patient's renal status to serial labs. (6) CAD (coronary artery disease) Current Visit: No Status: Chronic Assessment and plan: No complaints of chest discomforts or palpitations. We will continue with current medications. Qualifiers: Coronary Disease-Associated Artery/Lesion type: [place] artery [place] vs. transplanted heart: [place] heart Associated angina: without angina Qualified Code(s): I25.10 - Atherosclerotic heart disease of [place] coronary artery without angina pectoris - Time Spent With Patient less than 15 minutes - Subjective Interval history: Patient appears relaxed and currently denies any discomforts or shortness of breath. Patient currently appears appropriate with conversation, but has had reports from nursing that patient over the past several days had episodes of hallucination and inappropriate conversations. Patient with a recent history of lung CA with reoccurrence of metastasis to the brain. - Constitutional Vitals: Temp Pulse Resp BP Pulse Ox 97.9 F 76 16 92/72 95 05/16/19 07:12 05/16/19 07:12 05/16/19 07:12 05/16/19 07:12 05/16/19 07:12 General appearance: Present: A&O X 3, pleasant - Head Head exam: Present: atraumatic, normocephalic - Eye Eye exam: Present: PERRL, conjuntiva pink, sclera anicteric Pupils: Present: PERRL - Neck Neck exam general surgery: Present: supple, trachea midline. Absent: lymphadenopathy - Respiratory Respiratory exam: Present: CTAB. Absent: accessory muscle use, rales, rhonchi, wheezes - Cardiovascular Cardiovascular exam: Present: RRR, +S1, +S2. Absent: diastolic murmur, gallop, rubs, systolic murmur - GI/Abdominal GI/Abdominal exam: Present: normal bowel sounds, soft, no peritoneal signs. Absent: distended, tenderness - Extremities Exam Extremities exam: Present: warm, radial pulses palpable and symmetrical. Absent: calf tenderness, cyanotic, pedal edema - Neurological Exam Neurological exam: Present: CN II-XII intact, oriented X3, no focal deficits. Absent: pronater drift, facial droop, speech deficit - Skin Skin exam: Present: dry, intact Internal Medicine: Result - Labs CBC & Chem 7: 05/13/19 04:33 05/13/19 04:33 - ABG Interpretation ABG results: PT/INR, D-dimer PT 12.4 Seconds (9.4-12.1) H 05/13/19 04:33 Consult Discharge Plan - Plan Referrals: Melida Santos CNP [Primary Care Provider] -
[2019-05-16] MEDS: *HR* OxyCODONE Immed Rel 5 MG TABLET PO PRN (21:43)
[2019-05-17] MEDS: Famotidine 20 MG TABLET PO SCH (05:10)
[2019-05-17] MEDS: *HR* Enoxaparin 40 MG/0.4 ML SYRINGE SQ SCH (05:10)
[2019-05-17] MEDS: Morphine Sulfate ER (12 HR) 15 MG TABLET.ER PO SCH (05:10)
[2019-05-17 07:58] VITALS: BP 101/57
[2019-05-17] MEDS: Gabapentin 300 MG CAPSULE PO SCH ×2 (09:12→14:40)
[2019-05-17] MEDS: Aspirin Enteric Coated 81 MG Tablet PO SCH (09:12)
[2019-05-17] MEDS: *HR* Metformin 500 MG TABLET PO SCH (09:12)
[2019-05-17 10:14] LABS: Bilirubin,Urine Negative (Negative); Blood,Urine Moderate (Negative); Color,Urine Yellow (Yellow); Glucose,Urine (UA) Normal (Normal); Ketones,Urine Negative (Negative); Leukocyte Esterase,Urine Large (Negative); Nitrite,Urine Negative (Negative); PH,Urine 5.5 pH Units (5.0-8.0); Protein,Urine 30 mg/dL (Neg-Trace); Urobilinogen,Urine Normal (Normal)
[2019-05-17 10:21] LABS: Clarity,Urine Cloudy (Clear)
[2019-05-17 10:23] LABS: RBC,Urine 15-30 per hpf (0-3); WBC,Urine TNTC per hpf (0-3)
[2019-05-17 10:24] LABS: Bacteria,Urine Moderate per hpf (None-Few); Squamous Epithelial Cell,Urine Few per lpf (None-Few); Yeast,Urine Moderate per hpf (None Seen)
--- NOTE | 2019-05-17 10:27 | Internal Med Progress Note ---
Date of Encounter: 05/17/19 Time of Encounter: 10:25 - Assessment and plan (1) Weakness generalized Current Visit: Yes Status: Acute Assessment and plan: Continue PT and OT. Assist with ADLs. (2) Type 2 diabetes mellitus Current Visit: Yes Status: Chronic Assessment and plan: Controlled with current medication. Monitor fingerstick blood sugar. Will adjust medicines as necessary. Qualifiers: Diabetes mellitus adjunct faculty for medical terminology insulin use: with adjunct faculty for medical terminology use Diabetes mellitus complication status: with kidney complications Diabetes mellitus complication detail: with chronic kidney disease Chronic kidney disease stage: stage 3 (moderate) Qualified Code(s): E11.22 - Type 2 diabetes mellitus with diabetic chronic kidney disease; N18.3 - Chronic kidney disease, stage 3 (moderate); Z79.4 - jail (current) use of insulin (3) Chronic kidney disease, stage IV (severe) Current Visit: Yes Status: Chronic Assessment and plan: Stable. Monitor labs. Avoid nephrotoxic agents. (4) CAD (coronary artery disease) Current Visit: Yes Status: Chronic Assessment and plan: Stable. Denies chest pain. Continue current medication. Qualifiers: Coronary Disease-Associated Artery/Lesion type: [place] artery [place] vs. transplanted heart: [place] heart Associated angina: without angina Qualified Code(s): I25.10 - Atherosclerotic heart disease of [place] coronary artery without angina pectoris (5) Cancer of right lung Current Visit: Yes Status: Chronic Assessment and plan: Stage IV lung cancer with brain meds. Continue supportive care. Qualifiers: Lung location: hilum of lung Qualified Code(s): C34.01 - Malignant neoplasm of right main bronchus - Time Spent With Patient less than 15 minutes - Subjective Interval history: Patient sitting up in chair, participating with therapy. Confuses easily. [place] last night due to urinary retention. Patient denies any pain at this time. Denies fever, chills, nausea vomiting or diarrhea. Denies shortness of breath or chest pain. - Constitutional Vitals: Temp Pulse Resp BP Pulse Ox 97.6 F 80 14 101/57 93 05/17/19 07:57 05/17/19 07:57 05/17/19 07:57 05/17/19 07:57 05/17/19 07:57 General appearance: Present: A&O X 2, pleasant, no acute distress - Head Head exam: Present: atraumatic, normocephalic - Eye Eye exam: Present: PERRL, conjuntiva pink, sclera anicteric Pupils: Present: PERRL - Neck Neck exam general surgery: Present: supple, trachea midline. Absent: lymphadenopathy - Respiratory Respiratory exam: Present: CTAB. Absent: accessory muscle use, rales, rhonchi, wheezes Additional comments: Diminished throughout - Cardiovascular Cardiovascular exam: Present: RRR, +S1, +S2. Absent: diastolic murmur, gallop, rubs, systolic murmur - GI/Abdominal GI/Abdominal exam: Present: normal bowel sounds, soft, no peritoneal signs. Absent: distended, tenderness - Extremities Exam Extremities exam: Present: warm, radial pulses palpable and symmetrical. Absent: calf tenderness, cyanotic, pedal edema - Neurological Exam Neurological exam: Present: CN II-XII intact, oriented X3, no focal deficits. Absent: pronater drift, facial droop, speech deficit - Skin Skin exam: Present: dry, intact Internal Medicine: Result - Labs CBC & Chem 7: 05/13/19 04:33 05/13/19 04:33 Labs: Urine 05/17/19 Range/Units 05:00 Urine Color Yellow (Yellow) Urine Clarity Cloudy A (Clear) Urine pH 5.5 (5.0-8.0) pH Units Ur Specific [place] 1.020 (1.010-1.025) Urine Protein 30 H (Neg-Trace) mg/dL Urine Glucose (UA) Normal (Normal) mg/dL - ABG Interpretation ABG results: PT/INR, D-dimer PT 12.4 Seconds (9.4-12.1) H 05/13/19 04:33 Consult Discharge Plan - Plan Referrals: Melida Santos, PROGRAM MANAGEMENT MANAGER [Primary Care Provider] -
--- NOTE | 2019-05-17 11:27 | Physician Discharge Referral ---
ExtendedCare Referral Info Transfer To: [facility] and Care Provider in Charge after Transfer: PCP Institutional Level of Care: Skilled - Diagnosis (1) Weakness generalized Priority: Primary Status: Acute (2) Type 2 diabetes mellitus Priority: Secondary Status: Chronic (3) Chronic kidney disease, stage IV (severe) Priority: Secondary Status: Chronic (4) CAD (coronary artery disease) Priority: Secondary Status: Chronic (5) Cancer of right lung Priority: Secondary Status: Chronic Prognosis: Poor Aware of Diagnosis: Patient, Family Aware of Prognosis: Patient, Family - Transfer Medications Home Medications: Montelukast [Singulair] 10 mg PO HS 06/15/18 [History] Atorvastatin Calcium 80 mg PO HS 06/28/18 [History] Doxepin HCl 50 mg PO HS 06/28/18 [History] Famotidine [Heartburn Prevention] 20 mg PO Q12H 07/27/18 [History] Oxycodone HCl [Roxybond] 5 mg PO Q8H PRN 07/30/18 [History] Pantoprazole Sodium [Protonix] 40 mg PO HS 07/30/18 [History] Aspirin [Lo-Dose Aspirin EC] 81 mg PO DAILY 11/09/18 [History] metFORMIN [Glucophage] 500 mg PO BIDWM #60 tablet 04/04/19 [Rx] Dicyclomine [Bentyl] 10 mg PO QID 05/07/19 [History] Gabapentin 600 mg PO TID 05/07/19 [History] Morphine Sulfate ER (12 HR) [MS Contin] 15 mg PO Q12H 05/07/19 [History] Carvedilol [Coreg] 12.5 mg PO BID #30 tablet 05/11/19 [Rx] Allergies/Adverse Reactions: Allergy/AdvReac Type Severity Reaction Status Date / Time Iodinated Contrast- Oral and Allergy Rash Verified 05/07/19 16:46 IV Dye iron Allergy Hives Verified 05/07/19 16:46 [place] Allergy Nausea Verified 05/07/19 16:46 Sulfa (Sulfonamide Allergy Hives Verified 05/07/19 16:46 Antibiotics) adhesive tape AdvReac Rash Verified 05/07/19 16:46 - Respiratory Orders Smoking Cessation: Smoking cessation has been advised. For more information, call the [place] Tobacco Quit Line at 7-616-PPBZ-NOW. - Ancillary Orders May use pressure relief devices daily prn - Advance Directives Code Status: Full Code - Mobility Orders Chair, Ambulate - Rehabiliation Orders Rehab Potential: Fair Rehab Orders: Evaluation for Physical Therapy, Evaluation for Occupational Therapy - Diet Orders No Concentrated Sweets CERTIFICATION: I certify that the transfer of the above named patient to an Extended Care Facility is necessary for the continuing treatment of the diagnosis listed. The above information is true and accurate reflection of patient's current condition. Confidential - Redisclosure prohibited without a patient's written consent.
--- NOTE | 2019-05-17 11:35 | Discharge Summary ---
Orders not resulted at time of discharge: Pending orders 05/17/19 05:00 Culture,Urine [RM] Routine Date of Encounter: 05/17/19 Time of Encounter: 11:27 - Discharge Diagnosis (1) Weakness generalized Priority: Primary Status: Acute (2) Type 2 diabetes mellitus Priority: Secondary Status: Chronic Qualifiers: Diabetes mellitus terminal operations supervisor insulin use: with senior care use Diabetes mellitus complication status: with kidney complications Diabetes mellitus complication detail: with chronic kidney disease Chronic kidney disease stage: stage 3 (moderate) Qualified Code(s): E11.22 - Type 2 diabetes mellitus with diabetic chronic kidney disease; N18.3 - Chronic kidney disease, stage 3 (moderate); Z79.4 - residential (current) use of insulin (3) Chronic kidney disease, stage IV (severe) Priority: Secondary Status: Chronic (4) CAD (coronary artery disease) Priority: Secondary Status: Chronic Qualifiers: Coronary Disease-Associated Artery/Lesion type: [place] artery [place] vs. transplanted heart: [place] heart Associated angina: without angina Qualified Code(s): I25.10 - Atherosclerotic heart disease of [place] coronary artery without angina pectoris (5) Cancer of right lung Priority: Secondary Status: Chronic Qualifiers: Lung location: hilum of lung Qualified Code(s): C34.01 - Malignant neoplasm of right main bronchus Hospital course: Ms. Richards is a 74 year old female discharging to her thing care. Patient is diagnosed with stage IV right lung cancer with minutes to brain. Confused at times. Past medical history includes diabetes type II, CKD stage for and CAD. Discharge discussed with: patient, family, nurse, social work - Time Spent with Patient Total time spent providing and/or coordinating discharge services: Time spent: Less than 30 minutes - Discharge Medications Prescriptions: No Action Atorvastatin Calcium 80 mg PO HS Doxepin HCl 50 mg PO HS Famotidine [Heartburn Prevention] 20 mg PO Q12H Pantoprazole Sodium [Protonix] 40 mg PO HS Oxycodone HCl [Roxybond] 5 mg PO Q8H PRN PRN Reason: Pain Aspirin [Lo-Dose Aspirin EC] 81 mg PO DAILY Dicyclomine [Bentyl] 10 mg PO QID Gabapentin 600 mg PO TID Morphine Sulfate ER (12 HR) [MS Contin] 15 mg PO Q12H Carvedilol [Coreg] 12.5 mg PO BID #30 tablet Montelukast [Singulair] 10 mg PO HS metFORMIN [Glucophage] 500 mg PO BIDWM #60 tablet Home Medications: Montelukast [Singulair] 10 mg PO HS 06/15/18 [History] Atorvastatin Calcium 80 mg PO HS 06/28/18 [History] Doxepin HCl 50 mg PO HS 06/28/18 [History] Famotidine [Heartburn Prevention] 20 mg PO Q12H 07/27/18 [History] Pantoprazole Sodium [Protonix] 40 mg PO HS 07/30/18 [History] Aspirin [Lo-Dose Aspirin EC] 81 mg PO DAILY 11/09/18 [History] metFORMIN [Glucophage] 500 mg PO BIDWM #60 tablet 04/04/19 [Rx] Gabapentin 600 mg PO TID 05/07/19 [History] Carvedilol [Coreg] 12.5 mg PO BID #30 tablet 05/11/19 [Rx] Acetaminophen [Tylenol] 650 mg PO Q6HR PRN tablet 05/17/19 [Rx] Dextrose Gel [Gluctose] 15 gm PO ONCE PRN tube 05/17/19 [Rx] Dextrose Gel [Gluctose] 30 gm PO ONCE PRN tube 05/17/19 [Rx] Dicyclomine [Bentyl] 10 mg PO QID capsule 05/17/19 [Rx] Insulin LISPRO [HumaLOG] 0 units SQ HS vial 05/17/19 [Rx] Insulin LISPRO [HumaLOG] 0 units SQ TIDAC vial 05/17/19 [Rx] Mag Hydrox/Al Hydrox/Simeth [Maalox] 30 ml PO Q4H PRN udc 05/17/19 [Rx] Morphine Sulfate ER (12 HR) [MS Contin] 15 mg PO Q12H 1 Days #2 tablet.er 05/17/19 [Rx] Ondansetron ODT [Zofran ODT] 4 mg SL Q6HR PRN tab.rapdis 05/17/19 [Rx] Oxycodone HCl [Roxybond] 5 mg PO Q8H PRN 1 Days #2 tablet.orl 05/17/19 [Rx] Polyethylene Glycol 3350 [MiraLAX] 17 gm PO DAILY PRN powd.pack 05/17/19 [Rx] Allergies/Adverse Reactions: Allergy/AdvReac Type Severity Reaction Status Date / Time Iodinated Contrast- Oral and Allergy Rash Verified 05/07/19 16:46 IV Dye iron Allergy Hives Verified 05/07/19 16:46 [place] Allergy Nausea Verified 05/07/19 16:46 Sulfa (Sulfonamide Allergy Hives Verified 05/07/19 16:46 Antibiotics) adhesive tape AdvReac Rash Verified 05/07/19 16:46 Date of admission: 05/12/19 14:43 Primary care physician: Melida Santos CNP Consults: 05/12/19 15:48 Consult to Occupational Therapy [CONS] Routine Comment: Deconditioning Reason for Consult: Deconditioning Does patient have active BEDREST order?: No Is patient medically & hemodynamically stable?: Yes Consult to Physical Therapy [CONS] Routine Comment: Deconditioning Reason for Consult: Deconditioning Does patient have active BEDREST order?: No Is patient medically & hemodynamically stable?: Yes Consult to Recreational Therapy [CONS] Routine Comment: Consult to Knockout Man [CONS] Routine Reason for SW Consult: Deconditioning Discharging clinician: Lulu Zuñiga Anticipated date of discharge: 05/17/19 - Constitutional Vitals: Temp Pulse Resp BP Pulse Ox 97.6 F 80 14 101/57 93 05/17/19 07:57 05/17/19 07:57 05/17/19 07:57 05/17/19 07:57 05/17/19 07:57 General appearance: Present: A&O X 2, pleasant, no acute distress - Head Head exam: Present: atraumatic, normocephalic - Eye Eye exam: Present: PERRL, conjuntiva pink, sclera anicteric Pupils: Present: PERRL - Neck Neck exam general surgery: Present: supple, trachea midline. Absent: lymphadenopathy - Respiratory Respiratory exam: Present: CTAB. Absent: accessory muscle use, rales, rhonchi, wheezes - Cardiovascular Cardiovascular exam: Present: RRR, +S1, +S2. Absent: diastolic murmur, gallop, rubs, systolic murmur - GI/Abdominal GI/Abdominal exam: Present: normal bowel sounds, soft, no peritoneal signs. Absent: distended, tenderness - Extremities Exam Extremities exam: Present: warm, radial pulses palpable and symmetrical. Absent: calf tenderness, cyanotic, pedal edema - Neurological Exam Neurological exam: Present: CN II-XII intact, oriented X3, no focal deficits. Absent: pronater drift, facial droop, speech deficit - Skin Skin exam: Present: dry, intact - Patient Status Disposition: Transfer SNF Condition: Fair Functional capacity at discharge: uses cane/walker Overall status at discharge: patient is not back to baseline - Discharge Instructions Follow Up With: Melida Santos AUTO TRANSMISSION SPECIALIST [Primary Care Provider] - - Diet and Activity Activity: as per physical therapy Diet: diabetic diet
[2019-05-17] MEDS ORDERED: Fluconazole 100 MG TABLET PO ONE (15:44)
== END 2019-05-17 16:15 | DRG 945 ==
LOC: INPGRE 05-12 14:43

== ENCOUNTER 2019-06-21 11:03 | Observation (INO) ==
--- NOTE | 2019-06-21 11:24 | Emergency Department Note ---
Disposition Clinical Impression: Opiate overdose Qualifiers: Encounter type: initial encounter Injury intent: accidental or unintentional Qualified Code(s): T40.601A - Poisoning by unspecified narcotics, accidental (unintentional), initial encounter Altered mental status Qualifiers: Altered mental status type: somnolence Qualified Code(s): R40.0 - Somnolence Renal failure Qualifiers: Acute renal failure type: unspecified Disposition: Admitted As Inpatient Referrals: Rylee Manjarrez MD [Primary Care Provider] - Forms: ED Satisfaction Letter Time of Disposition: 15:57 Altered Mental Status HPI - General Chief Complaint: ED Altered Mental Status Stated Complaint: unresponsive Time Seen by Provider: 06/21/19 11:06 Source: patient, EMS Mode of arrival: EMS Limitations: no limitations Nursing Notes Reviewed: Yes Vital Signs Reviewed: Yes - History of Present Illness HPI Narrative: We received no call from the retirement or family members, EMS indicates patient is retirement resident, post CVA, history of chronic pain, call from retirement staff indicated patient unresponsive. EMS indicates that when they arrived she indeed was minimally responsive, only to painful stimuli, blood pressure 80/48, respiratory rate 12, pulse ox 97%. They gave HER-2 of IV Narcan and she improved, became verbally responsive to painful stimuli and then to verbal stimuli. Glucose at the scene was 190. Patient has history of brain tumor and diabetes, currently treated for UTI with Augmentin, and according to the records that retirement sent is on MS Contin 15 mg twice a day last dose this morning but there is no documented time of administration. 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: caregiver Context: diabetes, cancer Associated symptoms: Reports: other (Patient's only complaint is that "my heart hurts" when asked about chest pain she denied) Treatments prior to arrival: other (Narcan) - Related Data Home Medications Medication Instructions Recorded Confirmed Famotidine [Heartburn Prevention] 20 mg PO Q12H 07/27/18 06/21/19 Pantoprazole Sodium [Protonix] 40 mg PO HS 07/30/18 06/21/19 Gabapentin 600 mg PO TID 05/07/19 06/21/19 Acetaminophen [Tylenol] 650 mg PO Q6HR PRN 06/21/19 06/21/19 Amoxicillin/Clavulanate [Augmentin] 500 mg PO BIDWM 06/21/19 06/21/19 Bisacodyl [Dulcolax] 10 mg PO DAILY PRN 06/21/19 06/21/19 Mag Hydrox/Al Hydrox/Simeth 30 ml PO Q4H PRN 06/21/19 06/21/19 [Maalox] Ondansetron HCl [Zofran] 4 mg PO Q6H PRN 06/21/19 06/21/19 Oxycodone HCl [Roxybond] 5 mg PO Q8H PRN 06/21/19 06/21/19 Polyethylene Glycol 3350 [MiraLAX] 17 gm PO DAILY PRN 06/21/19 06/21/19 Previous Rx's Medication Instructions Recorded metFORMIN [Glucophage] 500 mg PO BIDWM #60 tablet 04/04/19 Carvedilol [Coreg] 12.5 mg PO BID #30 tablet 05/11/19 Morphine Sulfate ER (12 HR) [MS 15 mg PO Q12H 1 Days #2 tablet.er 05/17/19 Contin] Allergies Allergy/AdvReac Type Severity Reaction Status Date / Time Iodinated Contrast Media Allergy Rash Verified 05/07/19 16:46 iron Allergy Hives Verified 05/07/19 16:46 [place] Allergy Nausea Verified 05/07/19 16:46 Sulfa (Sulfonamide Allergy Hives Verified 05/07/19 16:46 Antibiotics) adhesive tape AdvReac Rash Verified 05/07/19 16:46 All systems ED: reviewed and negative except as stated. 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, it is June but cannot give me the date. Skin color is pale. Appears well hydrated, body habitus normal, elderly, debilitated with stroke, right hemiparesis, garbled speech which is her baseline. . Non toxic appearing. Head: Normocephalic and atraumatic. External ear exam normal Nose: Nose normal. Mouth/Throat: Uvula is midline, oropharynx is clear and moist and mucous membranes are normal. Eyes: Conjunctivae nl, extraocular motions and lids are normal. Pupils are equal, mid range, round, and reactive to light. Neck: Normal range of motion and phonation normal. Neck supple. Cardiovascular: Normal rate, regular rhythm, normal heart sounds. Pulmonary/Chest: No Respiratory distress. Respiratory Effort normal and breath sounds clear. Abdominal: Soft. Normal appearance and bowel sounds are normal. no tenderness, no masses, no guarding, no rebound Musculoskeletal: Good distal pulses. Soft compartments. Brisk cap refill. Extremities: Limited range of motion as the patient moans when they are moved passively. She does have the right hemiparesis.Intact peripheral pulses. No Edema. Extremity skin color nl, no calf tenderness or palpable cords. Neurological: Patient is awake. Responds to verbal stimuli. Otherwise keeps eyes closed. Patient is alert and oriented with evidence of obvious motor deficits i.e. right hemiparesis Skin: Skin is warm, dry and intact. color is pale, cap refill is quick Psychiatric: Patient has depressed mood and flat affect. Patient speech garbled at baseline. She is not confused. Thought content normal. - General Limitations: no limitations General appearance: alert, in no apparent distress Course - Reevaluation(s) Reevaluation #1: Patient is well-appearing. Family bedside. No complaints. I discussed need for observation longer term because of the possibility of overdose of MS Contin. Nursing did discuss case with staff at retirement and [facility] staff indicate that the patient is also on a short-acting oxycodone IR 5 mg tablet every 6 hours but they cannot relate what time the last dose of the short acting or the MS Contin Was. Time: 12:58 Reevaluation #2: disc case w/ dr Manjarrez her PMD under care at [facility] who indicated that the patient had multiple episodes of diarrhea yesterday. Apparently [facility] staff was not able to collect the stool and send it but studies were ordered for C. difficile. So had me review previous renal function which did show that her creatinine has been at baseline normal and is now 2.5. BUS and is unchanged. GFR has dropped however from normal to current at 17. Dr. Manjarrez is concerned that the patient may have had pronounced effect of her opiates because of dehydration and is concerned about the dropping renal function, she suggested that if the repeat numbers do not improve after hydration in the ED that the patient requires hospitalization and has asked me to speak with the hospitalist here at [place] for possible admission. Time: 13:20 Reevaluation #3: Dr Manjarrez called back and indicated that she had called to ECF and that her most recent creatinine leel was .8 at "beginning of May" and that she has had normal renal function She also indicated that the patient has not been receiving any of her short- acting oxycodone because she "does not ever ask for it" and that they are giving her the MS Contin on schedule. She suggests that if the patient does not meet admission criteria and needs to be returned to the ECF that I should stop MS Contin and she will reevaluate Time: 13:34 - Consultations Consultation #1: disc case w/ dr Harkins who agrees w/ admission and Morphine MS Contin 10 mg bid and admit. disc fluids Time: 15:44 Vital Signs Temperature 98.5 F 06/21/19 11:10 Pulse Rate 89 06/21/19 11:10 Respiratory Rate 16 06/21/19 11:10 Blood Pressure 127/84 06/21/19 11:10 O2 Sat by Pulse Oximetry 100 06/21/19 11:10 Temperature 98.5 F 06/21/19 11:10 Pulse Rate 79 06/21/19 15:00 Respiratory Rate 18 06/21/19 15:00 Blood Pressure 105/70 06/21/19 15:00 O2 Sat by Pulse Oximetry 96 06/21/19 15:00 Oxygen Delivery Oxygen Delivery Room Air Altered Mental Status - MDM Narrative Medical decision making narrative: Patient is well-known to me and seems to be at baseline. It sounds like from the EMS report that the patient had rapid improvement to her baseline mental status after Narcan administration. Medication list reviewed from retirement indicates only long-acting MS Contin which would be concerning since if she has been overmedicated with that and responded to Narcan which has a shorter half-life, she may need a longer period of observation. Will also attempt to determine if there is any other reason for the patient's alteration in mental status this morning She has a known UTI and repeating the urine test is unlikely to be helpful Urine drug screen will be sent to determine if she has benzodiazepines or anything else in her urine The initial hypotension improved with 200 mL bolus and with the Narcan and her blood pressure was 125/87 at arrival to the ED Patient is awake and will be monitored. We will attempt to monitor and tidal capnography - Differential Diagnosis Likely: altered mental status, substance use - Medical Records Medical records reviewed: Yes I reviewed the patient's medical records. - Lab Data Lab results reviewed: Yes I reviewed the patient's lab results. Result diagrams: 06/21/19 11:28 06/21/19 13:45 Lab Results 06/21/19 06/21/19 06/21/19 Range/Units 11:28 11:28 11:28 WBC 11.7 H (4.3-11.1) K/mcL RBC 4.58 (3.82-4.97) M/mcL Hgb 13.2 (11.5-15.4) g/dL Hct 39.9 (35.3-44.9) % MCV 87.1 (83.0-100.0) fL MCH 28.8 (28.0-33.3) pg MCHC 33.1 (31.6-35.5) g/dL RDW 13.5 (11.5-14.5) % Plt Count 298 (140-400) K/mcL MPV 10.1 (9.4-12.4) fL Immature Gran % 0.3 (0-4) % Seg Neutrophils % 65.5 % Lymphocytes % 23.5 % Monocytes % 8.9 % Eosinophils % 1.4 % Basophils % 0.4 % Neutrophils # 7.7 (1.6-8.9) K/mcL Lymphocytes # 2.8 (0.6-4.6) K/mcL Monocytes # 1.0 (0.0-1.3) K/mcL Eosinophils # 0.2 (0.0-0.6) K/mcL Basophils # 0.1 (0.0-0.2) K/mcL PT 12.6 H (9.4-12.1) Seconds INR 1.1 APTT 28.6 (26.0-36.0) Seconds VBG pH (7.32-7.42) pH Units VBG pCO2 (41-51) mmHg VBG pO2 (25-50) mmHg VBG HCO3 (21-27) mEq/L Sodium 130 L (136-145) mEq/L Potassium 3.6 (3.5-5.1) mEq/L Chloride 92 L (98-107) mEq/L Carbon Dioxide 27 (23-29) mEq/L BUN 21 (8-23) mg/dL Creatinine 2.50 H (0.60-1.20) mg/dL Est GFR ( Amer) 23 L (> 60) Est GFR (Non-Af Amer) 19 L (> 60) BUN/Creatinine Ratio 8 (6-26) Glucose 190 H (70-105) mg/dL Calculated Osmolality 278 L (280-300) Lactic Acid (0.5-2.2) mmol/L Calcium 10.5 H (8.6-10.3) mg/dL Total Bilirubin 0.6 (0.3-1.0) mg/dL Direct Bilirubin 0.2 (0.0-0.2) mg/dL Indirect Bilirubin 0.4 (0.0-1.2) mg/dL AST 18 (13-39) Units/L ALT 15 (7-52) Units/L Alkaline Phosphatase 47 (34-104) Units/L Troponin I 0.03 (< 0.04) ng/mL Serum Total Protein 6.6 (6.4-8.9) g/dL Albumin 3.7 (3.5-5.7) g/dL Globulin 2.9 (2.4-3.5) g/dL Albumin/Globulin Ratio 1.3 (1.1-2.2) Urine Opiates Screen (Cdmzkt=738) ng/mL Ur Buprenorphine Scrn (Cutoff=5) ng/mL Ur Barbiturates Screen (Vuxxha=661) ng/mL Ur Phencyclidine Scrn (Cutoff=25) ng/mL Ur Amphetamines Screen (Kmbxoo=7958) ng/mL U Benzodiazepines Scrn (Pvicpb=678) ng/mL Urine Cocaine Screen (Cutoff= 300) ng/mL U Marijuana (THC) Screen (Cutoff = 50) ng/mL Ur Drug Screen Interp Ethyl Alcohol < 10 (Less than 10) mg/dL 09/10/19 09/10/19 09/10/19 Range/Units 11:28 11:40 11:47 WBC (4.3-11.1) K/mcL RBC (3.82-4.97) M/mcL Hgb (11.5-15.4) g/dL Hct (35.3-44.9) % MCV (83.0-100.0) fL MCH (28.0-33.3) pg MCHC (31.6-35.5) g/dL RDW (11.5-14.5) % Plt Count (140-400) K/mcL MPV (9.4-12.4) fL Immature Gran % (0-4) % Seg Neutrophils % % Lymphocytes % % Monocytes % % Eosinophils % % Basophils % % Neutrophils # (1.6-8.9) K/mcL Lymphocytes # (0.6-4.6) K/mcL Monocytes # (0.0-1.3) K/mcL Eosinophils # (0.0-0.6) K/mcL Basophils # (0.0-0.2) K/mcL PT (9.4-12.1) Seconds INR APTT (26.0-36.0) Seconds VBG pH 7.37 (7.32-7.42) pH Units VBG pCO2 45 (41-51) mmHg VBG pO2 36 (25-50) mmHg VBG HCO3 26 (21-27) mEq/L Sodium (136-145) mEq/L Potassium (3.5-5.1) mEq/L Chloride (98-107) mEq/L Carbon Dioxide (23-29) mEq/L BUN (8-23) mg/dL Creatinine (0.60-1.20) mg/dL Est GFR ( Amer) (> 60) Est GFR (Non-Af Amer) (> 60) BUN/Creatinine Ratio (6-26) Glucose (70-105) mg/dL Calculated Osmolality (280-300) Lactic Acid 2.5 H (0.5-2.2) mmol/L Calcium (8.6-10.3) mg/dL Total Bilirubin (0.3-1.0) mg/dL Direct Bilirubin (0.0-0.2) mg/dL Indirect Bilirubin (0.0-1.2) mg/dL AST (13-39) Units/L ALT (7-52) Units/L Alkaline Phosphatase (34-104) Units/L Troponin I (< 0.04) ng/mL Serum Total Protein (6.4-8.9) g/dL Albumin (3.5-5.7) g/dL Globulin (2.4-3.5) g/dL Albumin/Globulin Ratio (1.1-2.2) Urine Opiates Screen Positive H (Ofumom=895) ng/mL Ur Buprenorphine Scrn Negative (Cutoff=5) ng/mL Ur Barbiturates Screen Negative (Chzlyw=945) ng/mL Ur Phencyclidine Scrn Negative (Cutoff=25) ng/mL Ur Amphetamines Screen Negative (Hrzlmq=6290) ng/mL U Benzodiazepines Scrn Negative (Loyusq=415) ng/mL Urine Cocaine Screen Negative (Cutoff= 300) ng/mL U Marijuana (THC) Screen Negative (Cutoff = 50) ng/mL Ur Drug Screen Interp See Below Ethyl Alcohol (Less than 10) mg/dL 06/21/19 06/21/19 Range/Units 13:45 13:45 WBC (4.3-11.1) K/mcL RBC (3.82-4.97) M/mcL Hgb (11.5-15.4) g/dL Hct (35.3-44.9) % MCV (83.0-100.0) fL MCH (28.0-33.3) pg MCHC (31.6-35.5) g/dL RDW (11.5-14.5) % Plt Count (140-400) K/mcL MPV (9.4-12.4) fL Immature Gran % (0-4) % Seg Neutrophils % % Lymphocytes % % Monocytes % % Eosinophils % % Basophils % % Neutrophils # (1.6-8.9) K/mcL Lymphocytes # (0.6-4.6) K/mcL Monocytes # (0.0-1.3) K/mcL Eosinophils # (0.0-0.6) K/mcL Basophils # (0.0-0.2) K/mcL PT (9.4-12.1) Seconds INR APTT (26.0-36.0) Seconds VBG pH (7.32-7.42) pH Units VBG pCO2 (41-51) mmHg VBG pO2 (25-50) mmHg VBG HCO3 (21-27) mEq/L Sodium 129 L (136-145) mEq/L Potassium 3.3 L (3.5-5.1) mEq/L Chloride 95 L (98-107) mEq/L Carbon Dioxide 25 (23-29) mEq/L BUN 23 (8-23) mg/dL Creatinine 2.40 H (0.60-1.20) mg/dL Est GFR ( Amer) 24 L (> 60) Est GFR (Non-Af Amer) 20 L (> 60) BUN/Creatinine Ratio 10 (6-26) Glucose 171 H (70-105) mg/dL Calculated Osmolality 276 L (280-300) Lactic Acid 1.8 (0.5-2.2) mmol/L Calcium 10.2 (8.6-10.3) mg/dL Total Bilirubin (0.3-1.0) mg/dL Direct Bilirubin (0.0-0.2) mg/dL Indirect Bilirubin (0.0-1.2) mg/dL AST (13-39) Units/L ALT (7-52) Units/L Alkaline Phosphatase (34-104) Units/L Troponin I (< 0.04) ng/mL Serum Total Protein (6.4-8.9) g/dL Albumin (3.5-5.7) g/dL Globulin (2.4-3.5) g/dL Albumin/Globulin Ratio (1.1-2.2) Urine Opiates Screen (Ngnbrc=825) ng/mL Ur Buprenorphine Scrn (Cutoff=5) ng/mL Ur Barbiturates Screen (Robzxc=331) ng/mL Ur Phencyclidine Scrn (Cutoff=25) ng/mL Ur Amphetamines Screen (Raeyoy=7670) ng/mL U Benzodiazepines Scrn (Gajkog=914) ng/mL Urine Cocaine Screen (Cutoff= 300) ng/mL U Marijuana (THC) Screen (Cutoff = 50) ng/mL Ur Drug Screen Interp Ethyl Alcohol (Less than 10) mg/dL - EKG Data EKG attestation: Yes I reviewed and interpreted this EKG. EKG results narrative: ECG shows quite a bit of artifact. Appears to be sinus rhythm. Rate of 83. No evidence of acute ST-T wave changes but the patient does have evidence of previous anterior wall ME TPA Checklist - LKW: 3-4.5 hrs Add. Warnings/Precautions Patient/family understanding: The patient/family members have been counseled and understood the risk, benefit, and alternatives of treatment.
[2019-06-21] MEDS ORDERED: 0.9 % Sodium Chloride 1,000 ML IVC SCH ×2 (11:30→17:19)
[2019-06-21 11:36] LABS: Basophils # 0.1 K/mcL (0.0-0.2); Basophils % 0.4 %; Eosinophils # 0.2 K/mcL (0.0-0.6); Eosinophils % 1.4 %; Hematocrit 39.9 % (35.3-44.9); Hemoglobin 13.2 g/dL (11.5-15.4); Immature Granulocytes % 0.3 % (0-4); Lymphocytes # 2.8 K/mcL (0.6-4.6); Lymphocytes % 23.5 %; Mean Corpuscular HGB Conc 33.1 g/dL (31.6-35.5); Mean Corpuscular Hemoglobin 28.8 pg (28.0-33.3); Mean Corpuscular Volume 87.1 fL (83.0-100.0); Mean Platelet Volume 10.1 fL (9.4-12.4); Monocytes % 8.9 %; Neutrophils # 7.7 K/mcL (1.6-8.9); Platelet Count 298 K/mcL (140-400); Red Blood Count 4.58 M/mcL (3.82-4.97); Red Cell Distribution Width 13.5 % (11.5-14.5); Segmented Neutrophils % 65.5 %; White Blood Count 11.7 K/mcL (4.3-11.1)
[2019-06-21 11:44] LABS: INR 1.1; Prothrombin Time 12.6 Seconds (9.4-12.1)
[2019-06-21 11:46] LABS: Activated Partial Thrombo Time 28.6 Seconds (26.0-36.0)
[2019-06-21] MEDS ORDERED: 0.9 % Sodium Chloride 500 ML IVC ONE (11:51)
[2019-06-21 11:52] LABS: VBG HCO3 26 mEq/L (21-27); VBG PCO2 45 mmHg (41-51); VBG PH 7.37 pH Units (7.32-7.42); VBG PO2 36 mmHg (25-50)
[2019-06-21 11:53] LABS: Alanine Aminotransferase 15 Units/L (7-52); Albumin 3.7 g/dL (3.5-5.7); Albumin/Globulin Ratio 1.3 (1.1-2.2); Alkaline Phosphatase 47 Units/L (34-104); Aspartate Amino Transferase 18 Units/L (13-39); BUN/Creatinine Ratio 8 (6-26); Bilirubin,Direct 0.2 mg/dL (0.0-0.2); Bilirubin,Indirect 0.4 mg/dL (0.0-1.2); Bilirubin,Total 0.6 mg/dL (0.3-1.0); Blood Urea Nitrogen 21 mg/dL (8-23); Calcium 10.5 mg/dL (8.6-10.3); Carbon Dioxide 27 mEq/L (23-29); Chloride 92 mEq/L (98-107); Ethanol < 10 mg/dL (Less than 10); Globulin 2.9 g/dL (2.4-3.5); Glucose 190 mg/dL (70-105); Osmolality,Calculated 278 (280-300); Potassium 3.6 mEq/L (3.5-5.1); Sodium 130 mEq/L (136-145); Total Protein 6.6 g/dL (6.4-8.9); eGFR For African Americans 23 (> 60); eGFR For Non-African Americans 19 (> 60)
[2019-06-21 11:55] LABS: Troponin I 0.03 ng/mL (< 0.04)
[2019-06-21 12:22] LABS: Amphetamine Screen,Urine Negative ng/mL (Cutoff=1000); Barbiturate Screen,Urine Negative ng/mL (Cutoff=200); Benzodiazepines Screen,Urine Negative ng/mL (Cutoff=200); Cannabinoid Screen,Urine Negative ng/mL (Cutoff = 50); Cocaine Screen,Urine Negative ng/mL (Cutoff= 300); Opiate Screen,Urine Positive ng/mL (Cutoff=300); Phencyclidine Screen,Urine Negative ng/mL (Cutoff=25)
[2019-06-21 14:20] LABS: Calcium 10.2 mg/dL (8.6-10.3); Potassium 3.3 mEq/L (3.5-5.1)
[2019-06-21] MEDS ORDERED: Potassium Effervescent 25 MEQ TABLET.EFF PO ONE (14:53)
[2019-06-21] MEDS ORDERED: Naloxone 0.4 MG/ML INJ IVP PRN ×2 (15:47→17:19)
[2019-06-21] MEDS ORDERED: Ondansetron 4 MG/2 ML VIAL IVP PRN ×2 (15:47→17:19)
[2019-06-21] MEDS ORDERED: Acetaminophen 325 MG TABLET PO PRN ×2 (15:51→17:19)
[2019-06-21] MEDS ORDERED: Mag Hydrox/Al Hydrox/Simeth 30 ML UDC PO PRN ×2 (15:51→17:19)
[2019-06-21] MEDS ORDERED: 0.9 % Sodium Chloride w KCl 20 MEQ/1,000 ML MLS IVC SCH (16:00)
[2019-06-21] MEDS ORDERED: Famotidine 20 MG TABLET PO SCH (16:00)
--- NOTE | 2019-06-21 16:19 | Electrocardiograph Report ---
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
--- NOTE | 2019-06-21 16:21 | Electrocardiograph Report ---
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
[2019-06-21] MEDS ORDERED: *HR* Metformin 500 MG TABLET PO SCH (17:00)
[2019-06-21] MEDS ORDERED: *HR* Enoxaparin 30 MG/0.3 ML SYRINGE SQ SCH (18:00)
[2019-06-21] MEDS ORDERED: Morphine Sulfate ER (12 HR) 15 MG TABLET.ER PO SCH (18:00)
[2019-06-21] MEDS ORDERED: D5% in Water 1,000 ML IVC PRN (18:03)
[2019-06-21] MEDS ORDERED: *HR* Dextrose 50 % in Water (Syg) 50 ML SYRINGE IVP PRN (18:03)
[2019-06-21] MEDS ORDERED: Dextrose Gel 15 GM/37.5 ML TUBE PO PRN ×2 (18:03)
[2019-06-21] MEDS: Morphine Sulfate Oral CONC 10 MG/0.5 ML ORAL.SYG PO SCH (18:19)
[2019-06-21] MEDS: *HR* Enoxaparin 30 MG/0.3 ML SYRINGE SQ SCH (18:51)
[2019-06-21] MEDS: 0.9 % Sodium Chloride w KCl 20 MEQ/1,000 ML MLS IVC SCH (18:51)
[2019-06-21] MEDS ORDERED: Insulin LISPRO 300 UNITS/3 ML VIAL SQ SCH (21:00)
[2019-06-21] MEDS ORDERED: GABAPENTIN 600 MG PO SCH (21:00)
[2019-06-22] MEDS: 0.9 % Sodium Chloride w KCl 20 MEQ/1,000 ML MLS IVC SCH (03:07)
[2019-06-22] MEDS: *HR* Enoxaparin 30 MG/0.3 ML SYRINGE SQ SCH (04:57)
[2019-06-22] MEDS: Morphine Sulfate Oral CONC 10 MG/0.5 ML ORAL.SYG PO SCH (05:06)
[2019-06-22 06:14] LABS: Calcium 9.7 mg/dL (8.6-10.3); Magnesium 1.5 mg/dL (1.6-2.6); Phosphorous 2.4 mg/dL (2.7-4.5)
[2019-06-22] MEDS ORDERED: Famotidine 20 MG TABLET PO SCH (07:30)
[2019-06-22] MEDS: Insulin LISPRO 300 UNITS/3 ML VIAL SQ SCH ×2 (07:41→12:16)
[2019-06-22] MEDS ORDERED: Amoxicillin/Clavulanate 500 MG TABLET PO SCH (08:00)
[2019-06-22] MEDS ORDERED: *HR* Metformin 500 MG TABLET PO SCH (08:00)
[2019-06-22 08:33] LABS: Basophils % 0.4 %; Eosinophils # 0.1 K/mcL (0.0-0.6); Eosinophils % 0.9 %; Hematocrit 34.7 % (35.3-44.9); Immature Granulocytes % 0.3 % (0-4); Lymphocytes # 1.7 K/mcL (0.6-4.6); Lymphocytes % 15.7 %; Mean Corpuscular HGB Conc 32.6 g/dL (31.6-35.5); Mean Corpuscular Hemoglobin 28.4 pg (28.0-33.3); Mean Corpuscular Volume 87.2 fL (83.0-100.0); Mean Platelet Volume 10.2 fL (9.4-12.4); Monocytes # 0.8 K/mcL (0.0-1.3); Neutrophils # 8.2 K/mcL (1.6-8.9); Platelet Count 230 K/mcL (140-400); Red Blood Count 3.98 M/mcL (3.82-4.97); Red Cell Distribution Width 13.5 % (11.5-14.5); Segmented Neutrophils % 75.7 %; White Blood Count 10.8 K/mcL (4.3-11.1)
[2019-06-22] MEDS ORDERED: 0.9 % Sodium Chloride w KCl 20 MEQ/1,000 ML MLS IVC SCH (09:00)
[2019-06-22] MEDS ORDERED: Gabapentin 300 MG CAPSULE PO SCH (09:00)
[2019-06-22 09:12] LABS: Hemoglobin 11.3 g/dL (11.5-15.4)
--- NOTE | 2019-06-22 11:17 | Internal Med History&Physical ---
Date of Encounter: 06/22/19 Time of Encounter: 11:11 Assessment and Plan (1) Hypomagnesemia Current visit: Yes Status: Acute Receiving IV magnesium. Will monitor. Magnesium level I.5. (2) Constipation Current visit: Yes Status: Acute Fleets enema administrated. Will follow for results. Qualifiers: Constipation type: slow transit constipation Qualified Code(s): K59.01 - Slow transit constipation (3) CVA (cerebral vascular accident) Current visit: Yes Status: Acute History of recent CVA. No new neurological deficits. 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 (5) Obesity (BMI 30-39.9) Current visit: Yes Status: Chronic (6) Opiate overdose Current visit: Yes Status: Acute Narcan administered prior to presenting to the ER. Will review narcotics prior to discharging back to [facility]. Qualifiers: Encounter type: subsequent encounter Injury intent: accidental or unintentional Qualified Code(s): T40.601D - Poisoning by unspecified narcotics, accidental (unintentional), subsequent encounter (7) Altered mental status Current visit: Yes Status: Acute Improving. Qualifiers: Altered mental status type: somnolence Qualified Code(s): R40.0 - Somnolence (8) Renal failure Current visit: Yes Status: Acute Improving. Creatinine 1.75. On IV fluids. Qualifiers: Renal failure chronicity: acute on chronic Acute renal failure type: unspecified Chronic kidney disease stage: stage 3 (moderate) Qualified Code (s): N17.9 - Acute kidney failure, unspecified; N18.3 - Chronic kidney disease, stage 3 (moderate) (9) Type 2 diabetes mellitus Current visit: No Status: Chronic Qualifiers: Diabetes mellitus termite exterminator insulin use: with termite exterminator use Diabetes mellitus complication status: with kidney complications Diabetes mellitus complication detail: with chronic kidney disease Chronic kidney disease stage: stage 3 (moderate) Qualified Code(s): E11.22 - Type 2 diabetes mellitus with diabetic chronic kidney disease; N18.3 - Chronic kidney disease, stage 3 (moderate); Z79.4 - assisted (current) use of insulin Internal Medicine - H&P: HPI Admitted From: Emergency Dept Plans for Post Hospital Care: Transfer Shelter Care History of present illness: Ms. Richards is a 74 year old female admitted for observation after being sent to the ER from shelter. She resides in the shelter. was found to have altered mental status and minimally responsive. EMS gave Narcan and she improved. Patient has history of brain tumor and diabetes, currently treated for UTI with Augmentin, and according to the records that shelter sent is on MS Contin 15 mg twice a day. currently resting in bed, denies pain. states she is waiting for her bowels to move. just recieved a fleets enema. past medical hx includes: cancer, CHF, coronary artery disease, CVA, diabetes, fibromyalgia, GERD, hyperlipidemia, hypertension, myocardial infarction, osteoporosis, renal disease, syncope, anxiety, bipolar, depression Past Med Surg Social Fam HX - Past Medical History Medical history: cancer, CHF, coronary artery disease, CVA, diabetes, fibromyalgia, GERD, hyperlipidemia, hypertension, myocardial infarction, osteoporosis, renal disease, syncope, other Additional medical history: CHRONIC BACK/KNEE PAIN, Brain Cancer, Lung Cancer, Cervical Cancer Psychiatric history: anxiety, bipolar, depression - Past Surgical History Surgical History: angioplasty/stent, appendectomy, cancer surgery, cholecystectomy, hysterectomy Additional surgical history: 6 cardiac stents. - Social History Smoking Status: Former smoker Smokeless Tobacco Status: No Alcohol use: none Drug use: none - Family History Mother Living Status: Sister Living Status: Hx Family Cardiac Disorders: Yes Hx Family Respiratory Disorders: Yes (Lung cancer) Brother Adopted: No Family Member Ethnicity: Non- Living Status: Still Living Hx Family Cardiac Disorders: Yes Hx Family Respiratory Disorders: Yes Hx Family Cancer: Yes Hx Family GI Disorders: No Hx Family Endocrine Disorder: No Hx Family Neuromuscular Disorders: No Hx Family Neurologic Disorders: No Hx Family HEENT Disorders: No Hx Family Autoimmune Disorders: No Father Adopted: No Family Member Ethnicity: Non- Living Status: Hx Family Cardiac Disorders: Yes Hx Family Respiratory Disorders: No Hx Family Cancer: No Hx Family GI Disorders: No Hx Family Endocrine Disorder: No Hx Family Neuromuscular Disorders: No Hx Family Neurologic Disorders: No Hx Family HEENT Disorders: No Hx Family Autoimmune Disorders: No Internal Medicine - H&P: Meds Famotidine [Heartburn Prevention] 20 mg PO Q12H 10/16/18 [History] Pantoprazole Sodium [Protonix] 40 mg PO HS 07/30/18 [History] metFORMIN [Glucophage] 500 mg PO BIDWM #60 tablet 04/04/19 [Rx] Gabapentin 600 mg PO TID 05/07/19 [History] Carvedilol [Coreg] 12.5 mg PO BID #30 tablet 05/11/19 [Rx] Morphine Sulfate ER (12 HR) [MS Contin] 15 mg PO Q12H 1 Days #2 tablet.er 05/17/19 [Rx] Acetaminophen [Tylenol] 650 mg PO Q6HR PRN 06/21/19 [History] Amoxicillin/Clavulanate [Augmentin] 500 mg PO BIDWM 06/21/19 [History] Bisacodyl [Dulcolax] 10 mg PO DAILY PRN 06/21/19 [History] Mag Hydrox/Al Hydrox/Simeth [Maalox] 30 ml PO Q4H PRN 06/21/19 [History] Ondansetron HCl [Zofran] 4 mg PO Q6H PRN 06/21/19 [History] Oxycodone HCl [Roxybond] 5 mg PO Q8H PRN 06/21/19 [History] Polyethylene Glycol 3350 [MiraLAX] 17 gm PO DAILY PRN 06/21/19 [History] Allergy/AdvReac Type Severity Reaction Status Date / Time Iodinated Contrast Media Allergy Rash Verified 05/07/19 16:46 iron Allergy Hives Verified 05/07/19 16:46 [place] Allergy Nausea Verified 05/07/19 16:46 Sulfa (Sulfonamide Allergy Hives Verified 05/07/19 16:46 Antibiotics) adhesive tape AdvReac Rash Verified 05/07/19 16:46 All Systems PM: A 10-system review of systems was performed and is negative for pertinent findings except as documented above in the HPI. - Constitutional Constitutional: no chills, no fever(s), no night sweats - EENT Eyes: no change in vision, no discharge, no pain, no photophobia Ears: no ear discharge, no ear pain, no tinnitus Nose, mouth and throat: no dysphagia, no nasal discharge, no neck pain, no sore throat - Cardiovascular Cardiovascular ROS IM: no chest pain, no diaphoresis, no dyspnea, no lightheadedness, no palpitations, no syncope - Respiratory Respiratory: no cough, no dyspnea, no wheezing, no excessive phlegm production - Gastrointestinal Gastrointestinal: no abdominal pain, no diarrhea, no hematemesis, no hematochezia, no melena, no nausea, no vomiting - Genitourinary Genitourinary: no change in urinary stream, no dysuria, no flank pain, no hematuria - Musculoskeletal Musculoskeletal ROS IM: no numbness, no tingling - Integumentary Integumentary IM: no rash, no unusual bruising - Neurological Neurological ROS: no confusion, no convulsions, no focal weakness, no numbness, no tingling, no tremor(s) - Hematologic/Lymphatic Hematologic/Lymphatic: no easy bruising - Constitutional Vitals: Temp Pulse Resp BP Pulse Ox 98.6 F 93 14 126/78 93 06/22/19 08:46 06/22/19 08:46 06/22/19 08:46 06/22/19 08:46 06/22/19 08:46 General appearance: Present: A&O X 2, no acute distress, obese, answers questions appropriately - Head Head exam: Present: atraumatic, normocephalic - Eye Eye exam: Present: PERRL, conjuntiva pink, sclera anicteric Pupils: Present: PERRL - Neck Neck exam general surgery: Present: supple, trachea midline. Absent: lymphadeno wanda - Respiratory Respiratory exam: Present: CTAB. Absent: accessory muscle use, rales, rhonchi, wheezes - Cardiovascular Cardiovascular exam: Present: RRR, +S1, +S2. Absent: diastolic murmur, gallop, rubs, systolic murmur - GI/Abdominal GI/Abdominal exam: Present: normal bowel sounds, soft, no peritoneal signs. Absent: distended, tenderness - Extremities Exam Extremities exam: Present: warm, radial pulses palpable and symmetrical. Ab sent: calf tenderness, cyanotic, pedal edema - Neurological Exam Neurological exam: Present: CN II-XII intact, oriented X3, no focal deficits. Absent: pronater drift, facial droop, speech deficit - Skin Skin exam: Present: dry, intact Internal Med - H&P Results - Labs CBC & Chem 7: 06/22/19 07:57 06/22/19 05:30 Labs: Short CBC 06/21/19 06/22/19 Range/Units 11:28 07:57 WBC 11.7 H 10.8 (4.3-11.1) K/mcL Hgb 13.2 11.3 L D (11.5-15.4) g/dL Hct 39.9 34.7 L (35.3-44.9) % Plt Count 298 230 (140-400) K/mcL Neutrophils # 7.7 8.2 (1.6-8.9) K/mcL BMP 06/21/19 06/21/19 06/22/19 11:28 13:45 05:30 Sodium 130 L 129 L 130 L Potassium 3.6 3.3 L 4.0 Chloride 92 L 95 L 101 Carbon Dioxide 27 25 21 L BUN 21 23 23 Creatinine 2.50 H 2.40 H 1.75 H Glucose 190 H 171 H 114 H Calcium 10.5 H 10.2 9.7 Cardiac Enzymes 06/21/19 Range/Units 11:28 Troponin I 0.03 (< 0.04) ng/mL Liver Function 06/21/19 Range/Units 11:28 Total Bilirubin 0.6 (0.3-1.0) mg/dL Direct Bilirubin 0.2 (0.0-0.2) mg/dL AST 18 (13-39) Units/L ALT 15 (7-52) Units/L Alkaline Phosphatase 47 (34-104) Units/L Albumin 3.7 (3.5-5.7) g/dL - ABG Interpretation ABG results: 06/21/19 11:47 VBG pH 7.37 VBG pCO2 45 VBG pO2 36 VBG HCO3 26
--- NOTE | 2019-06-22 13:12 | Discharge Summary ---
- NOTES TO OUTPATIENT PROVIDER Notes to Outpatient Provider: dose for morphine sulfate decreased to 10mg every 12 hrs. oxycodone discontinued. 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 (4) Weakness Priority: Secondary Status: Acute (5) Obesity (BMI 30-39.9) Priority: Secondary Status: Chronic (6) Opiate overdose Priority: Primary Status: Acute Qualifiers: Encounter type: subsequent encounter Injury intent: accidental or unintentional Qualified Code(s): T40.601D - Poisoning by unspecified narcotics, accidental (unintentional), subsequent encounter (7) Altered mental status Priority: Primary Status: Acute Qualifiers: Altered mental status type: somnolence Qualified Code(s): R40.0 - Somnolence (8) Renal failure Priority: Secondary Status: Acute Qualifiers: Renal failure chronicity: acute on chronic Acute renal failure type: unspecified Chronic kidney disease stage: stage 3 (moderate) Qualified Code(s): N17.9 - Acute kidney failure, unspecified; N18.3 - Chronic kidney disease, stage 3 (moderate) (9) Type 2 diabetes mellitus Priority: Secondary Status: Chronic Qualifiers: Diabetes mellitus fpc insulin use: with fpc use Diabetes mellitus complication status: with kidney complications Diabetes mellitus complication detail: with chronic kidney disease Chronic kidney disease stage: stage 3 (moderate) Qualified Code(s): E11.22 - Type 2 diabetes mellitus with diabetic chronic kidney disease; N18.3 - Chronic kidney disease, stage 3 (moderate); Z79.4 - ferry terminal agent (current) use of insulin Hospital course: Ms. Richards is a 74 year old female discharging back to [facility] after being admitted for observation for altered mental status. Medication review performed in narcotics are being cut back. Patient received IV fluids and IV magnesium. Received fleets enema. Denies pain, fever, chills, nausea vomiting or diarrhea. Denies shortness of breath or chest pain. Discharge discussed with: patient, nurse - Time Spent with Patient Total time spent providing and/or coordinating discharge services: Time spent: Less than 30 minutes - Discharge Medications Prescriptions: No Action Famotidine [Heartburn Prevention] 20 mg PO Q12H Pantoprazole Sodium [Protonix] 40 mg PO HS Gabapentin 600 mg PO TID Carvedilol [Coreg] 12.5 mg PO BID #30 tablet metFORMIN [Glucophage] 500 mg PO BIDWM #60 tablet Morphine Sulfate ER (12 HR) [MS Contin] 15 mg PO Q12H 1 Days #2 tablet.er Amoxicillin/Clavulanate [Augmentin] 500 mg PO BIDWM Polyethylene Glycol 3350 [MiraLAX] 17 gm PO DAILY PRN PRN Reason: Constipation Acetaminophen [Tylenol] 650 mg PO Q6HR PRN PRN Reason: Pain Oxycodone HCl [Roxybond] 5 mg PO Q8H PRN PRN Reason: Pain Ondansetron HCl [Zofran] 4 mg PO Q6H PRN PRN Reason: Nausea Bisacodyl [Dulcolax] 10 mg PO DAILY PRN PRN Reason: Constipation Mag Hydrox/Al Hydrox/Simeth [Maalox] 30 ml PO Q4H PRN PRN Reason: Indigestion Home Medications: Famotidine [Heartburn Prevention] 20 mg PO Q12H 07/27/18 [History] Pantoprazole Sodium [Protonix] 40 mg PO HS 07/30/18 [History] metFORMIN [Glucophage] 500 mg PO BIDWM #60 tablet 04/04/19 [Rx] Gabapentin 600 mg PO TID 05/07/19 [History] Carvedilol [Coreg] 12.5 mg PO BID #30 tablet 05/11/19 [Rx] Morphine Sulfate ER (12 HR) [MS Contin] 15 mg PO Q12H 1 Days #2 tablet.er 05/17/19 [Rx] Acetaminophen [Tylenol] 650 mg PO Q6HR PRN 06/21/19 [History] Amoxicillin/Clavulanate [Augmentin] 500 mg PO BIDWM 06/21/19 [History] Bisacodyl [Dulcolax] 10 mg PO DAILY PRN 06/21/19 [History] Mag Hydrox/Al Hydrox/Simeth [Maalox] 30 ml PO Q4H PRN 06/21/19 [History] Ondansetron HCl [Zofran] 4 mg PO Q6H PRN 06/21/19 [History] Polyethylene Glycol 3350 [MiraLAX] 17 gm PO DAILY PRN 06/21/19 [History] Morphine Sulfate Oral CONC [Roxanol Oral Conc] 10 mg PO Q12HR 7 Days #30 ml 06/22/19 [Rx] Allergies/Adverse Reactions: Allergy/AdvReac Type Severity Reaction Status Date / Time Iodinated Contrast Media Allergy Rash Verified 05/07/19 16:46 iron Allergy Hives Verified 05/07/19 16:46 [place] Allergy Nausea Verified 05/07/19 16:46 Sulfa (Sulfonamide Allergy Hives Verified 05/07/19 16:46 Antibiotics) adhesive tape AdvReac Rash Verified 05/07/19 16:46 Date of admission: 06/21/19 16:02 Primary care physician: Rylee Manjarrez Consults: 06/21/19 19:00 Consult to Industrial Maintenance Repairer Helper [CONS] Routine Reason for SW Consult: discharge planning Discharging clinician: Giancarlo Harkins Anticipated date of discharge: 06/22/19 - Constitutional Vitals: Temp Pulse Resp BP Pulse Ox 98.5 F 89 14 115/7 94 06/22/19 12:28 06/22/19 12:28 06/22/19 12:28 06/22/19 12:28 06/22/19 12:28 General appearance: Present: A&O X 2, no acute distress, obese, answers questions appropriately - Head Head exam: Present: atraumatic, normocephalic - Eye Eye exam: Present: PERRL, conjuntiva pink, sclera anicteric Pupils: Present: PERRL - Neck Neck exam general surgery: Present: supple, trachea midline. Absent: lymphadenopathy - Respiratory Respiratory exam: Present: CTAB. Absent: accessory muscle use, rales, rhonchi, wheezes - Cardiovascular Cardiovascular exam: Present: RRR, +S1, +S2. Absent: diastolic murmur, gallop, rubs, systolic murmur - GI/Abdominal GI/Abdominal exam: Present: normal bowel sounds, soft, no peritoneal signs. Absent: distended, tenderness - Extremities Exam Extremities exam: Present: warm, radial pulses palpable and symmetrical. Absent: calf tenderness, cyanotic, pedal edema - Neurological Exam Neurological exam: Present: CN II-XII intact, oriented X3, no focal deficits. Absent: pronater drift, facial droop, speech deficit - Skin Skin exam: Present: dry, intact - Patient Status Disposition: Transfer LTC Condition: Fair Functional capacity at discharge: wheelchair bound Overall status at discharge: patient is progressing back to baseline - Discharge Instructions Follow Up With: Rylee Manjarrez MD [Primary Care Provider] - - Diet and Activity Activity: resume usual activities as tolerated Diet: advance to your usual diet
[2019-06-22 13:37] VITALS: BP 115/74
== END 2019-06-22 16:00 ==
LOC: EMEROOGRE 11:03 → INPGRE 16:02 → INTOOBSV 16:02 → INPGRE 16:32